=== PATIENT | female | born 1940 | race Caucasian/White ===

== ENCOUNTER 2023-09-24 13:02 | Emergency (ER) | payer MEDICARE, OTHER, SELFPAY ==
[2023-09-24] VITALS (12 sets, daily range): BP systolic 121–158; BP diastolic 49–92; PULSE 78–95; BMI 40.4
--- NOTE | 2023-09-24 16:00 | ED.GENMED ---
History of Present Illness
<Haley Drew MD, Resident - Last Filed: 09/24/23 21:10>
General
Chief Complaint: Dizziness
Time Seen by Provider: 09/24/23 15:06
History of Present Illness
History of Present Illness:
83 yo female who presented to ER today with worsened dizziness since the last week. She started to have a couple times of dizziness last week and they longed for one hour, But this morning she started to feel more dizzy in the morning around 7.30 am
and it went away one hour later and following she started to feel dizzy again. The patient reports she did not want to move and called her friend and ambulance. Ambulance crew told the patient that her blood pressure was found normal and her ECG
showed some abnormalities and she was brought to ER. The patient reports her dizziness is related with her head/neck movements. She denies chest pain, weakness, SOB, similar symptoms in the past.
If applicable-neuro sx onset
Date of onset of symptoms: 09/24/23
Past History
<Haley Drew MD, Resident - Last Filed: 09/24/23 21:10>
Past History
ED Past Medical History: Asthma, HTN, Other (Ovarian CA) and Other (lymphedema )
ED Past Surgical History: Gynecological and Orthopedic (bilateral knee replacement and right hip replacement )
Social History
Tobacco: Non-smoker
Alcohol: None
Drug: None
Personal: Single
Living: alone
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
Family History
Family History: Other (Noncontributory)
Phy Exam
<Haley Drew MD, Resident - Last Filed: 09/24/23 21:10>
General Physical Exam
General Presentation: moderate distress
General Skin: dry
General Mental: alert
ENT Exam
ENT Exam: EOMI
Eye Exam
Eye Exam: EOMI, conjunctiva normal and other (Left sided rapid eye movements )
Cardiovascular Exam
Cardiovascular Exam: regular rate/rhythm and other (bilateral lower extremity lymphedema )
Pulmonary Exam
Pulmonary Exam: lungs clear, no respiratory distress, chest non tender, no crackles, no stridor, no wheezing and no cough
Neurological Exam
Neurological Exam: alert, oriented x3, CN II-XII intact, no motor deficits, normal reflexs, no sensory deficits and speech normal
Course
<Haley Drew MD, Resident - Last Filed: 09/24/23 21:10>
Orders/Labs/Results
Orders:
Orders
09/24/23 13:05
Electrocardiogram (*1) Urgent
Reason for Study: Vertigo / Dizzy
EKG- Treatment ONCE
09/24/23 15:37
0.9% Sodium Chloride 500 ml [Nss] 500 ml IV BOLUS
09/24/23 15:55
CT Head W/o Iv Contrast Urgent
Comment:
Reason For Exam: dizzines
09/24/23 15:56
Orthostatic VS- Treatment ONCE
09/24/23 16:03
Complete Blood Count/With Diff Urgent
Comprehensive Metabolic Panel Urgent
Manual Differential Urgent
Troponin I Urgent
09/24/23 17:35
Meclizine [Antivert] 25 mg PO NOW STA
Abnormal Lab Results
09/24/23
16:03
WBC 3.3 L 10^3/uL
(4.8-10.8)
RBC 3.15 L 10^6/uL
(4.20-5.40)
Hgb 9.5 L g/dL
(12.0-16.0)
Hct 28.7 L %
(37.0-47.0)
RDW 16.4 H %
(11.5-14.5)
Lymphocytes (Manual) 12 L %
(20-51)
Monocytes (Manual) 18 H %
(2-9)
BUN 20 H mg/dl
(7-17)
Glucose 111 H mg/dl
(70-99)
Total Bilirubin 3.1 H mg/dl
(0.2-1.3)
09/24/23 16:03
09/24/23 16:03
Vital Signs
Initial and Last Documented VS:
Initial Vital Signs
Temp Pulse Resp BP Pulse Ox
97.7 F 79 16 140/71 97
09/24/23 13:03 09/24/23 13:03 09/24/23 13:03 09/24/23 13:03 09/24/23 13:03
Last Documented Vital Signs
Temp Pulse Resp BP Pulse Ox
98.1 F 84 17 122/61 98
09/24/23 19:50 09/24/23 19:50 09/24/23 19:50 09/24/23 19:50 09/24/23 19:50
<Chon Juarez MD - Last Filed: 09/24/23 18:53>
Orders/Labs/Results
Orders:
Orders
09/24/23 13:05
Electrocardiogram (*1) Urgent
Reason for Study: Vertigo / Dizzy
EKG- Treatment ONCE
09/24/23 15:37
0.9% Sodium Chloride 500 ml [Nss] 500 ml IV BOLUS
09/24/23 15:55
CT Head W/o Iv Contrast Urgent
Comment:
Reason For Exam: dizzines
09/24/23 15:56
Orthostatic VS- Treatment ONCE
09/24/23 16:03
Complete Blood Count/With Diff Urgent
Comprehensive Metabolic Panel Urgent
Manual Differential Urgent
Troponin I Urgent
09/24/23 17:35
Meclizine [Antivert] 25 mg PO NOW STA
Abnormal Lab Results
09/24/23
16:03
WBC 3.3 L 10^3/uL
(4.8-10.8)
RBC 3.15 L 10^6/uL
(4.20-5.40)
Hgb 9.5 L g/dL
(12.0-16.0)
Hct 28.7 L %
(37.0-47.0)
RDW 16.4 H %
(11.5-14.5)
Lymphocytes (Manual) 12 L %
(20-51)
Monocytes (Manual) 18 H %
(2-9)
BUN 20 H mg/dl
(7-17)
Glucose 111 H mg/dl
(70-99)
Total Bilirubin 3.1 H mg/dl
(0.2-1.3)
09/24/23 16:03
09/24/23 16:03
Vital Signs
Initial and Last Documented VS:
Initial Vital Signs
Temp Pulse Resp BP Pulse Ox
97.7 F 79 16 140/71 97
09/24/23 13:03 09/24/23 13:03 09/24/23 13:03 09/24/23 13:03 09/24/23 13:03
Last Documented Vital Signs
Temp Pulse Resp BP Pulse Ox
98.1 F 84 17 122/61 98
09/24/23 19:50 09/24/23 19:50 09/24/23 19:50 09/24/23 19:50 09/24/23 19:50
<Haley Drew MD, Resident - Last Filed: 09/24/23 21:10>
MDM/Problems Addressed
Differential Diagnosis Includes:
Anemia, electrolyte imbalance, Dehydration, BPV?
<Haley Drew MD, Resident - Last Filed: 09/24/23 21:10>
*Critical Care Note
Total Time (30-74mins, 75-104mins- exclusive of procedures): Not Applicable
<Haley Drew MD, Resident - Last Filed: 09/24/23 21:10>
Comment
Comment:
Posterior [place], anemia, electrolyte imbalance, CVA, BPV?
ED Attending Note
<Haley Drew MD, Resident - Last Filed: 09/24/23 21:10>
-
Portions of this chart may have been created with voice recognition software.� Occasional wrong word or��sound alike� substitutions may have occurred due to the inherent limitations of voice recognition software.
<Chon Juarez MD - Last Filed: 09/24/23 18:53>
ED Attending Note
Patient seen and examined by attending physician: Yes
ED Attending Note:
Patient presents to ED secondary to intermittent lightheaded sensation over the past 1 week, worse today. Patient has had intermittent nausea sensation without vomiting. Denies fever or chills. Denies headache. Denies blurred vision. Denies
loss of sensation or weakness. Denies falling down from dizziness. However, patient states that she feels unsteady when she is walking. Denies recent illness. Denies recent change in medications or diet. Of note, patient states that she has been
seeing chiropractor for the past 2 weeks, secondary to neck pain. However, patient denies any manipulation of her neck.
Physical Exam
General: no apparent distress, not acutely ill. afebrile
Head: nc/at. eomi
Neck: supple. no meningeal signs.
Heart: s1/s2 regular rate and rhythm, no murmur. equal radial pulses.
Lungs: no acute respiratory distress. clear bilaterally
Abdomen: normal bowel sounds. not tender. rectal exam (GODWIN Jackson, at bedside): brown stool, heme negative
Neuro: alert and oriented. no focal neurological deficits. normal speech.
Skin: no rash
Psychiatric: well kept. interactive and cooperative
Extremities: no edema. no calf tenderness.
CT head: NAD.
Pt reports improvement after IVF administration and remains neurologically intact.
History and exam consistent with dizziness, likely multifactorial, including dizziness/decreased oral intake vs vertigo. Pt feels comfortable going home at this time. As such, she will be discharged home with recommendation for PCP f/u, including
repeat H/H as well as potential MRI brain, if symptoms persist.
Discharge Plan
Departure
Patient Disposition: Home (Routine Discharge)
Date of Disposition: 09/24/23
Time of Disposition: 18:37
Patient with high blood pressure during this ER visit?: No
Discharge Problem:
Dizziness, Anemia
Instructions: Normocytic Normochromic Anemia (DC), Dizziness
Prescriptions:
New
meclizine 25 mg tablet
25 mg PO TID MDD 75 mg Qty: 30 0RF
No Action
fluticasone propionate 1 SPRAY spray,suspension
2 spray intranasal DAILY
fluticasone propion-salmeterol 1 DISK blister with device
1 puff inhalation BID
clindamycin HCl 150 MG capsule
600 mg PO PRN PRN (Reason: dental work)
chlorhexidine gluconate (bulk) 450 ML solution
1 ml MC BID
fluticasone propion-salmeterol 1 DISK blister with device
1 puff PO DAILY
mupirocin 1 APPLIC ointment
1 applic topical BID Qty: 1 0RF
Patient Comments:
last dose, 09/12/20
sennosides [senna] 1 TABLET tablet
2 tab PO BID 0RF
lidocaine [Aspercreme (lidocaine)] 1 PATCH adhesive patch,medicated
3 patch topical DAILY PRN (Reason: R knee pain) Qty: 21 0RF
Rx Instructions:
Over the counter. Remove nightly.
Apply to sides of R knee. Do not place over incision.
aspirin 325 MG tablet
325 mg PO DAILY Qty: 28 0RF
Rx Instructions:
Take daily x4 weeks for blood clot prevention.
acetaminophen [Tylenol Extra Strength] 500 MG tablet
1,000 mg PO Q6H Qty: 60 0RF
Rx Instructions:
Do not exceed >4000 mg daily.
magnesium hydroxide 30 ML suspension
30 ml PO DAILYPRN PRN (Reason: constipation) 0RF
pantoprazole 40 MG tablet,delayed release (DR/EC)
40 mg PO HS Qty: 30 0RF
Rx Instructions:
Take nightly while on Ibuprofen.
docusate sodium 100 MG capsule
100 mg PO BID 0RF
diazepam 5 MG tablet
5 mg PO BIDPRN PRN (Reason: muscle spasms/anxiety) Qty: 12 0RF
Rx Instructions:
Caution while on Dilaudid - can cause drowsiness.
hydromorphone 2 MG tablet
2 mg PO Q4HPRN PRN (Reason: moderate-severe pain) Qty: 30 0RF
Rx Instructions:
1 tab moderate pain or 2 if pain severe
dx total joint
ongoing therapy
bumetanide 2 MG tablet
2 mg PO DAILY Qty: 0 0RF
Rx Instructions:
Hold if systolic blood pressure <130 while on Dilaudid.
amlodipine 2.5 MG tablet
2.5 mg PO DAILY Qty: 30 0RF
Rx Instructions:
Hold if systolic blood pressure <130 while on Dilaudid
ibuprofen 400 MG tablet
400 mg PO BID Qty: 0 0RF
Rx Instructions:
Take with food.
Do not take within 2 hours of aspirin.
potassium chloride 10 MEQ tablet extended release
10 meq PO DAILY Qty: 0 0RF
Rx Instructions:
Resume only when taking Bumex unless otherwise advised by .
Referrals:
Del Cid,Foster Sj, MD [Family Provider] -
Activity Restrictions/Additional Instructions:
As discussed, please follow up with your primary care physician for re-evaluation, including repeat blood work in 1-2 weeks, along with potential MRI brain as outpatient, if your dizziness persists. Your prescription has been sent electronically to
[facility] in [place].
Interventions
Interventions:
*Risk Screen - Suicide Last Done: 09/24/23 13:03
*General Assessment Last Done: 09/24/23 13:03
*Neglect/Abuse Screening Last Done: 09/24/23 13:03
ED- Fall Risk Assessment Last Done: 09/24/23 15:50
*ED COVID-19 Vaccine History Last Done: 09/24/23 15:50
*Nursing Disposition Last Done: 09/24/23 19:50
ED- Neurological Assessment Last Done: 09/24/23 15:50
ED- Cardiac Assessment Last Done: 09/24/23 19:51
ED Swallowing Screen Last Done: 09/24/23 17:48
Discharge Date and Time
Discharge Date/Time: 09/24/23 19:53
Print Language: ITALIAN
[2023-09-24] MEDS: NSS 500 IV (16:22)
[2023-09-24 16:28] LABS: Hematocrit 28.7 % (37.0-47.0); Hemoglobin 9.5 g/dL (12.0-16.0); Mean Corp Hgb Conc. 33.1 g/dL (33.0-37.0); Mean Corpuscular Hgb 30.2 pg (27.0-31.0); Mean Corpuscular Volume 91.1 fL (81.0-99.0); Mean Platelet Volume 9.9 fL (7.4-10.4); Platelet Count 139 10^3/uL (130-400); Red Blood Cell Count 3.15 10^6/uL (4.20-5.40); Red Cell Dist. Width 16.4 % (11.5-14.5); White Blood Cell Count 3.3 10^3/uL (4.8-10.8)
[2023-09-24 16:31] LABS: ALT (SGPT) 15 U/L (0-35); AST (SGOT) 32 U/L (14-36); Albumin 3.7 g/dl (3.5-5.0); Alkaline Phosphatase 114 U/L (38-126); Blood Urea Nitrogen 20 mg/dl (7-17); Calcium 9.2 mg/dl (8.4-10.2); Carbon Dioxide 30 mmol/L (22-30); Chloride 98 mmol/L (98-107); Estimated Creatinine Clearance 56 ml/min; Glucose 111 mg/dl (70-99); Potassium 3.5 mmol/L (3.5-5.1); Sodium 135 mmol/L (135-145); Total Bilirubin 3.1 mg/dl (0.2-1.3); Total Protein 6.6 g/dl (6.3-8.2); eGFR > 60.00
[2023-09-24 16:41] LABS: Troponin I < 0.012 ng/ml
[2023-09-24 17:13] LABS: Absolute Neutrophils -Man Diff 2.3 10^3/uL (1.4-6.5); Band Neutrophils 0 % (0-3); Lymphocytes 12 % (20-51); Monocytes 18 % (2-9); Pathologist Reviewed No; Platelets Checked Yes; Segmented Neutrophils 70 % (42-75)
[2023-09-24 17:14] LABS: Normal RBC Morphology Yes
[2023-09-24 17:15] LABS: Total Cells Counted 100
[2023-09-24] MEDS: ANTIVERT 25 MG PO (17:54)
== END 2023-09-24 19:53 | disposition home or self-care (01) ==
LOC: EMR 13:02
PROVIDERS: Student in an Organized Health Care Education/Training Program; EMERGENCY PHYSICIAN Emergency Medicine; FAMILY PHYSICIAN Internal Medicine
DX: R42 Dizziness and giddiness (principal); D64.9 Anemia, unspecified; I10 Essential (primary) hypertension; J45.909 Unspecified asthma, uncomplicated; Z85.43 Personal history of malignant neoplasm of ovary; Z96.653 Presence of artificial knee joint, bilateral; Z96.641 Presence of right artificial hip joint; Z79.82 Long term (current) use of aspirin; Z88.8 Allergy status to other drugs, medicaments and biological substances; Z91.048 Other nonmedicinal substance allergy status
CPT/HCPCS: 99285; 96360; 70450; 80053; 84484; 85025; 93005

== ENCOUNTER 2023-11-06 12:39 | Inpatient (IN) | payer MEDICARE, OTHER, SELFPAY ==
[2023-11-06] VITALS (11 sets, daily range): BP systolic 74–139; BP diastolic 45–70
--- NOTE | 2023-11-06 08:47 | ED.GENMED ---
History of Present Illness
General
Chief Complaint: CVA/TIA Symptoms
Source: patient and ambulance crew
Exam Limitations: none
Time Seen by Provider: 11/06/23 08:46
History of Present Illness
History of Present Illness:
See MDM
If applicable-neuro sx onset
Onset of symptoms known: No
Time pt last seen normal is known: Yes
Date last time pt seen normal: 11/05/23
Past History
Past History
ED Past Medical History: Asthma, HTN, Other (Ovarian CA) and Other (lymphedema )
ED Past Surgical History: Gynecological and Orthopedic (bilateral knee replacement and right hip replacement )
Social History
Tobacco: Non-smoker
Alcohol: None
Drug: None
Personal: Single
Living: alone
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
Family History
Family History: Other (Noncontributory)
Phy Exam
Physical Exam
Physical Exam:
See MDM
Scores
NIH Stroke Score
Level of Consciousness: 0 - Alert
LOC Questions: 0-Answers both correctly
LOC Commands: 0-Performs both correctly
Best Horizontal Gaze: 0-Normal
Visual [place]: 0=Normal, no visual loss
Facial Palsy: 3=Complete paralysis
Motor - Right Arm: 1=Drift < 10 seconds
Motor - Left Arm: 0=No drift 10 seconds
Motor - Right Le-Drift < 5 seconds
Motor - Left Le-No drift 5 seconds
Limb Ataxia: 0-Absent
Sensation: 0-Normal
Best Language: 0-No aphasia
Dysarthria: 1-Mild slurring
Extinction and Inattention: 0-No abnormality
Total Score:: 6
Course
Orders/Labs/Results
Orders:
Orders
11/06/23 08:46
Electrocardiogram (*1) Stat
Reason for Study: Other
Other Reason for Exam: neuro symptoms
CT Head W/o Cont STROKE ALERT Urgent
Comment:
Reason For Exam: left facial droop and R side weakness
CT Head/Neck Ang STROKE ALERT Urgent
Comment:
Reason For Exam: left facial droop and R side weakness
EKG- Treatment ONCE
11/06/23 09:23
Consult Neurology [NEUROLOGY CONSULT] Urgent
Consulting Provider: Aquilino Patel
Was physician already notified: Yes
Comprehensive Metabolic Panel Urgent
PTT Urgent
Prothrombin Time Urgent
Aspirin 300 mg RECTAL NOW STA
Clopidogrel Bisulfate [Plavix] 300 mg PO NOW STA
11/06/23 09:24
Complete Blood Count/With Diff Urgent
Troponin I Urgent
11/06/23 09:31
Speech Screening from Declan Routine
11/06/23 09:33
Famotidine [Pepcid] 20 mg IV NOW STA
Abnormal Lab Results
11/06/23 11/06/23
09:23 09:24
WBC 3.0 L 10^3/uL
(4.8-10.8)
RBC 3.56 L 10^6/uL
(4.20-5.40)
Hgb 10.6 L g/dL
(12.0-16.0)
Hct 32.4 L %
(37.0-47.0)
MCHC 32.7 L g/dL
(33.0-37.0)
RDW 15.9 H %
(11.5-14.5)
Absolute Lymphs (auto) 0.3 L 10^3/uL
(1.2-3.4)
Lymphocytes % 11.3 L %
(20.5-51.1)
Monocytes % 20.0 H %
(1.7-9.3)
PT 15.6 H Sec
(11.4-14.6)
Chloride 96 L mmol/L
(98-107)
Glucose 124 H mg/dl
(70-99)
Total Bilirubin 2.6 H mg/dl
(0.2-1.3)
11/06/23 09:24
11/06/23 09:23
Vital Signs
Initial and Last Documented VS:
Initial Vital Signs
Temp Pulse Resp BP Pulse Ox
97.7 F 96 18 139/59 97
11/06/23 09:10 11/06/23 09:10 11/06/23 09:10 11/06/23 09:10 11/06/23 09:10
Last Documented Vital Signs
Temp Pulse Resp BP Pulse Ox
97.7 F 96 18 139/59 97
11/06/23 09:10 11/06/23 09:10 11/06/23 09:10 11/06/23 09:10 11/06/23 09:10
MDM/Problems Addressed
Differential Diagnosis Includes:
HPI and MDM Narrative:
83-year-old female presenting as a prearrival stroke alert. She noted vertigo symptoms 9 PM last night. She thinks 6 AM started with facial droop and weakness. Patient confused and also thinks it could have been 5:30 AM. Patient was seen
immediately on arrival and sent right to CT scanner
Physical exam
General: Left facial droop, slurred speech
HEENT: protecting airway
Neck: appears supple
CV: No evidence of cyanosis. Regular rate and rhythm
Resp: No accessory muscle use
Abd: Non-distended
Extremities: No deformities
Neuro: alert. Mild dysarthria, right facial droop, right-sided weakness
Psych: Normal affect
Skin: Intact
Problems Addressed including Acute and Chronic Conditions affecting care:
1. Strokelike symptoms
Acuity: acute
Prognosis: unstable
Details: Stroke alert called immediately on arrival
Updates
9:[address] head negative. At this time, neurology at bedside. At this point, the right-sided arm weakness is improving
9:20 AM given the uncertainty of the starting time, neurology indicated avoidance of TNK. Will give aspirin and Plavix
Differential Diagnosis (but not limited to): Intracranial hemorrhage, ischemic stroke
Testing considered: CT perfusion
Drug therapy (if applicable): OTC meds, please see d/c instruction regarding Rx drugs
Amount and/or Complexity of Data Reviewed
Clinical info obtained from: Patient
External data reviewed: N/A
Labs I independently reviewed (but not limited to): Mildly low white blood cell count
Radiology: The CT scan was personally and independently reviewed. In addition, official CT report reviewed.
Pulse Ox: not hypoxic
EKG independently reviewed: Sinus rhythm, right bundle branch block, no STEMI
Stringed Instrument Tuner: Sinus rhythm
Critical Care: N/A
Risk of Complication:
Social Determinants of health: Good social support
Discussed with other providers: Neurology, radiologist
Escalation of Care includes Admit/Obs: Given the concern for stroke, will admit for further workup
Occasional wrong word or 'sound a like' substitutions may have occurred due to the inherent limitations of voice recognition software. Read the chart carefully and recognize, using context, where substitutions have occurred.
*Critical Care Note
Total Time (30-74mins, 75-104mins- exclusive of procedures): Not Applicable
ED Attending Note
-
Portions of this chart may have been created with voice recognition software.� Occasional wrong word or��sound alike� substitutions may have occurred due to the inherent limitations of voice recognition software.
Discharge Plan
Departure
Patient Disposition: Admit
Date of Disposition: 11/06/23
Time of Disposition: 10:06
Admit to: Telemetry
Presentation/result/management discussed w/ accepting MD/DO: Hospitalist
Discharge Problem:
Acute CVA (cerebrovascular accident)
Prescriptions:
No Action
fluticasone propionate 1 SPRAY spray,suspension
2 spray intranasal DAILY
fluticasone propion-salmeterol 1 DISK blister with device
1 puff inhalation BID
mupirocin 1 APPLIC ointment
1 applic topical BID Qty: 1 0RF
Patient Comments:
last dose, 09/12/20
Rx Instructions:
bilateral lower legs.
bumetanide 2 MG tablet
2 mg PO DAILY Qty: 0 0RF
Rx Instructions:
Hold if systolic blood pressure <130 while on Dilaudid.
amlodipine 2.5 MG tablet
2.5 mg PO DAILY Qty: 30 0RF
Rx Instructions:
Hold if systolic blood pressure <130 while on Dilaudid
potassium chloride 10 MEQ tablet extended release
10 meq PO DAILY Qty: 0 0RF
Rx Instructions:
Resume only when taking Bumex unless otherwise advised by DrWilbert
acetaminophen [Tylenol Extra Strength] 500 MG tablet
1,000 mg PO Q6H PRN (Reason: pain/fever)
Rx Instructions:
Do not exceed >4000 mg daily.
Referrals:
UNKNOWN - PT DOES,NOT KNOW [Unknown Provider] -
Interventions
Interventions:
*Risk Screen - Suicide Last Done: 11/06/23 08:55
*General Assessment Last Done: 11/06/23 08:55
*Neglect/Abuse Screening Last Done: 11/06/23 08:55
ED Swallowing Screen Last Done: 11/06/23 09:30
Discharge Date and Time
Print Language: BENINESE
[2023-11-06 09:34] LABS: % Basophils 1.7 % (0-2); % Eosinophils 0.7 % (0-6); % Immature Granulocytes 0.3 % (0-0.5); % Lymphocytes 11.3 % (20.5-51.1); Absolute Basophils 0.1 10^3/uL (0-0.2); Absolute Lymphocytes 0.3 10^3/uL (1.2-3.4); Absolute Monocytes 0.6 10^3/uL (0.1-0.6); Hematocrit 32.4 % (37.0-47.0); Hemoglobin 10.6 g/dL (12.0-16.0); Mean Corp Hgb Conc. 32.7 g/dL (33.0-37.0); Mean Corpuscular Hgb 29.8 pg (27.0-31.0); Mean Platelet Volume 9.9 fL (7.4-10.4); Nucleated Red Blood Cells % 0 %; Platelet Count 149 10^3/uL (130-400); Red Blood Cell Count 3.56 10^6/uL (4.20-5.40); Red Cell Dist. Width 15.9 % (11.5-14.5)
[2023-11-06] MEDS: ASPIRIN 300 MG RECTAL (09:35)
[2023-11-06] MEDS: PLAVIX 300 MG PO (09:35)
[2023-11-06] MEDS: PEPCID 20 MG IV (09:41)
[2023-11-06 09:43] LABS: INR 1.26; PT 15.6 Sec (11.4-14.6)
[2023-11-06 09:44] LABS: APTT 31.9 Sec (23.4-35.0)
[2023-11-06 09:46] LABS: ALT (SGPT) 15 U/L (0-35); AST (SGOT) 31 U/L (14-36); Albumin 3.8 g/dl (3.5-5.0); Alkaline Phosphatase 103 U/L (38-126); Blood Urea Nitrogen 17 mg/dl (7-17); Calcium 9.3 mg/dl (8.4-10.2); Carbon Dioxide 30 mmol/L (22-30); Chloride 96 mmol/L (98-107); Glucose 124 mg/dl (70-99); Sodium 136 mmol/L (135-145); Total Bilirubin 2.6 mg/dl (0.2-1.3); Total Protein 6.7 g/dl (6.3-8.2); eGFR > 60.00
[2023-11-06 09:57] LABS: Troponin I < 0.012 ng/ml
--- NOTE | 2023-11-06 10:18 | CON.NEURO4 ---
Addendum entered and electronically signed by Aquilino Patel MD 11/07/23 14:05:
CC: Right sided weakness
Allergies: Lisinopril, Adhesive
Medications: Norvasc 2.5mg, Bumex 2mg, Flonase
VS:
Temp Pulse Resp BP Pulse Ox
97.7 F 96 18 139/59 97
Original Note:
Consultation - Neurology 4
-
CONSULTING PHYSICIAN: Aquilino Patel MD
REFERRING PHYSICIAN: Hospitalist
DICTATED BY: Aquilino Patel MD
DATE/TIME OF REQUEST: October
DATE/TIME OF CONSULTATION: November 06, 2023
Reason for Consultation:
History of Present Illness:
This is a 83 year old right) handed female) who has presented to the hospital with (chief complaint) of right sided weakness. She gives a h/o HTN who had been in her USOH till last night. Around 9p she felt lightheaded and dizzy, she had difficulty
standing. She laid down and didnt call for help. This morning her neighbor checked in on her and found her to have right sided weakness of face and difficulty with her right arm and unable to sit or stand. She denied headaches nausea or numbness. No
LOC or seizures. She had Slurred speech double vision with incoordination
She was brought into ER and her symptoms persisted
Following admission facial weakness became more pronounced with return of limb function.
Past Medical History: HTN
Surgical History: Knee repair
Family History: [place]
Social History: Lives alone. Does not smoke or use alcohol
Allergies:
Home Medications:
Review of Symptoms:
Patient denies any fever, headache, chest pain, shortness of breath, GI or symptoms.
�Per the HPI.�All systems are reviewed negative except above.
�-
Vital Signs:
The patient has a
Physical Exam:
The patient is afebrile, heart sounds S1 and S2 are regular , and chest is clear to auscultation bilaterally.
- If not clear, describe.
NIH Stroke Scale (if applicable):
I performed the NIH stroke scale on the patient. The patient scored 6 points on the NIHSS:
Neurologic Examination:
The patient is awake, alert and oriented x 3. (He/She) is able to follow commands and answer questions appropriately. Speech is fluent with dysarthria.
On cranial nerve assessment, pupils are 3 mm bilateral, round and reactive to light and accommodation. Visual andrea are full. Extraocular movements are intact. Facial sensations are intact and bilaterally symmetrical. There is RIGHT facial
asymmetry . Hearing is impaired bilaterally. Tongue palate and uvula are midline. Sternocleidomastoid strengths are full bilaterally. Motor strengths are 3/5 RIGHT upper and lower extremities on medical research [place] scale. There is no drift or
involuntary movement noted. Deep tendon reflexes are 2+ bilateral upper and lower extremities with RIGHT Babinski.
Sensations of pain, touch, temperature and vibration are impaired and asymmetrical.. Coordination is impaired by finger to nose RIGHT
Rombergs and Gait was NT as pat is bedbound.
Lab Results: Addendum
Neuro Imaging: CT Head: Atrophy. Small vessel disease. Normal ventricles
Impression:
(Mr. / Ms.) RONALD LUQUE is a 83 year old F who has presented to the hospital with (symptoms/chief complaint) right-sided weakness associated with vertigo and slurred speech
Differentials for the patient's presentation include:
1. Vertebrobasilar insufficiency with lacunar stroke
Patient has the following risk factors for their symptoms:
IV Tenecteplase/IAT candidacy: Not a candidate for intra venous thrombolysis due to onset of symptoms on November 05, 2023
Recommendations:
1. Aspirin 300 mg
2. Plavix 75 mg
3. Pepcid
4. PT/OT
5. MRI of head
6. B12
7. Eyepatch
8. Statin
Discussed patient care with: ER attending
Allergies
-
Allergies
Allergy/AdvReac Type Severity Reaction Status Date / Time
adhesive Allergy Plastic Verified 09/12/20 05:57
bandaids
cause
itching
lisinopril Allergy angioedema Verified 09/12/20 05:57
cats,dogs,perfumes,candles,grass Allergy chest Uncoded 09/12/20 05:57
tightness,asthma
shrubs,trees, Allergy chest Uncoded 09/12/20 05:57
tightness,asthma
Vital Signs and Labs
-
Vital Signs and Labs:
Vital Signs
Temp Pulse Resp BP Pulse Ox
36.5 C 96 18 139/59 97
11/06/23 09:10 11/06/23 09:10 11/06/23 09:10 11/06/23 09:10 11/06/23 09:10
Lab Results
11/06/23 09:24
11/06/23 09:23
PT 15.6 Sec (11.4-14.6) H 11/06/23 09:23
INR 1.26 11/06/23 09:23
APTT 31.9 Sec (23.4-35.0) 11/06/23 09:23
Sodium 136 mmol/L (135-145) 11/06/23 09:23
Potassium 4.0 mmol/L (3.5-5.1) 11/06/23 09:23
BUN 17 mg/dl (7-17) 11/06/23 09:23
Glucose 124 mg/dl (70-99) H 11/06/23 09:23
Calcium 9.3 mg/dl (8.4-10.2) 11/06/23 09:23
Medications
-
Home Medications
�Medication �Instructions �Recorded
fluticasone propionate 50 2 spray intranasal DAILY 03/06/17
mcg/actuation nasal Lung/breathing issues
spray,suspension
fluticasone 100 mcg-salmeterol 50 1 puff inhalation BID 07/07/18
mcg/dose blistr powdr for Lung/breathing issues
inhalation
mupirocin 2 % topical ointment 1 applic topical BID #1 tube 08/16/20
amlodipine 2.5 mg tablet 2.5 mg PO DAILY ##30 09/13/20
bumetanide 2 mg tablet 2 mg PO DAILY Fluid 09/13/20
retention/Swelling ##0
potassium chloride 10 mEq 10 meq PO DAILY Electrolyte 09/13/20
tablet,extended release Repletion ##0
acetaminophen 500 mg tablet 1,000 mg PO Q6H PRN pain/fever 11/06/23
(Tylenol Extra Strength)
--- NOTE | 2023-11-06 12:14 | W.PN.HOSP.TC ---
Today's Communication/Plan
-
Neuro consult appreciated
admit tele
Assessment / Plan
Assessment / Plan
Acute CVA with rt sided weakness
neuro felt that symptoms started on 11/04 and thus not a candidate for thrombolysis
Anemia
as per POA in process of being worked up. She has been scheduled to have an abd US and has been referred to Dr. Sutton
s/p bilateral TKR, Rt hip replacement
Hx of ovarian cancer
Hx of asthma
P:admit to tele
Plavix/ASA
Full Code
Anticipated Discharge: > 48 hours
Subjective/Interval History
-
Date of Service: November 06, 2023
Acute Rt sided weakness
Objective Data
-
Labs:
Laboratory Results
11/06/23 11/06/23
09:23 09:24
WBC 3.0 L
Hgb 10.6 L
Hct 32.4 L
Plt Count 149
PT 15.6 H
INR 1.26
APTT 31.9
Sodium 136
Potassium 4.0
Chloride 96 L
Carbon Dioxide 30
BUN 17
Creatinine 0.7
Glucose 124 H
Calcium 9.3
Total Bilirubin 2.6 H
AST 31
ALT 15
Alkaline Phosphatase 103
Vital Signs:
Vital Signs
Temp Pulse Resp BP Pulse Ox
97.7 F 84 17 123/62 97
11/06/23 09:10 11/06/23 11:15 11/06/23 11:00 11/06/23 11:00 11/06/23 11:15
Review of Systems
-
History Source: Patient, Family (brother and POA in room) and Coordinated Provider
Constitutional: Denies Fever
EENT: Reports Hearing Loss (chronic [place]) and Other (rt sided facial droop)
Respiratory: Reports No Symptoms
Cardiac: Reports No Symptoms
Abdomen/GI: Reports No Symptoms
Genitourinary: Reports No Symptoms
Musculoskeletal: Reports Muscle Weakness (chronic rt leg weakness)
Neuro: Reports Weakness
Physical Exam
-
General: Well Developed, Well Nourished and No Apparent Distress
HEENT: Normocephalic, Atraumatic and Moist Mucous Membranes
Respiratory: Clear to Auscultation; Negative Wheezes, Rales or Rhonchi
Cardiac: Regular Rhythm and S1/S2
GI: Soft, Nontender and Nondistended
Musculoskeletal: No Clubbing, No Cyanosis and No Edema
Neuro: Awake, Alert, Oriented and Other (rt sided facial droop, rt sided weakness)
--- NOTE | 2023-11-06 16:25 | PTOTSP ---
SPEECH THERAPY SWALLOW EVALUATION:
Patient exhibits clinical signs of oropharyngeal dysphagia, likely acute related to acute CVA. Patient remains at risk for aspiration and related complications due to acute CVA and Right sided weakness. No signs of aspiration observed at this time.
No CXR available. WBC low. Patient with stable respiratory status at this time. Recommend IDDSI Level 6 Soft and Bite Size diet, thin liquids. Medications whole in applesauce. Aspiration precautions including: Upright positioning; 100%
supervision/assistance with meals; Monitoring for signs of aspiration; Checking for pocketing on Right using finger/lingual sweep; Place bolus and chew on Left; Eat only when awake/alert; Alternate textures; Small sips/bites; Slow rate; Monitor CXR
and labs; D/c oral diet if any decline in mental or respiratory status. Education provided to patient/family regarding aspiration risks/precautions and safe swallow strategies including placing bolus on Left, overchewing solids, checking for
pocketing on Right using finger/lingual sweep. Patient verbally reported she understood all recommendations. Signage with recommendations posted in patient room. Discussed recommendations with RN and Dr. Rosenthal. Speech therapy to follow, assess diet
tolerance and modify as appropriate, provide continued education regarding aspiration risks/precautions, determine indication for instrumental assessment of swallowing as appropriate, and complete full speech/language/cognitive communication
evaluation.
RECOMMEND:
1) IDDSI Level 6 Soft and Bite Size diet, thin liquids
2) Medications whole in applesauce
3) Aspiration precautions including: Upright positioning; 100% supervision/assistance with meals; Monitoring for signs of aspiration; Checking for pocketing on Right using finger/lingual sweep; Place bolus and chew on Left; Eat only when
awake/alert; Alternate textures; Small sips/bites; Slow rate; Monitor CXR and labs; D/c oral diet if any decline in mental or respiratory status
4) Speech therapy to follow
[2023-11-06] MEDS: LIPITOR 20 MG PO (16:52)
[2023-11-06 20:25] LABS: Glucose - Point of Care 114 mg/dl (70-99)
[2023-11-06] MEDS: ADVAIR HFA 45/21 MCG INHALER INH (20:25)
--- NOTE | 2023-11-06 20:25 | PTCARENOTE ---
Addendum entered by Fior Corona 11/07/23 00:05:
2232: Urine resulted, house PRESS MAINTAINER notified order for IV rocephin, given. Pt back to baseline. NIH completed- scored 7.
Original Note:
2022: When attempting to do NIH pt very drowsy- awoke pt for about 15 minutes, pt very disoriented unable to state name, , month or place. Stating 'I am 19 years old, and her name is Nevaeh'. Pt with slurred speech, aphasia-Rapid Response and
stroke alert called. NIH completed increased from 7 to 14. BP 74/54 HR 80s NSR on telemetry. Blood sugar 114. BP rechecked 139/61. Orders for IVF NSS 100/hr- hung. Pt straight cathed per order for 300 cc foul smelling urine- sent for urinalysis.
--- NOTE | 2023-11-06 20:37 | W.PN.UPDATE ---
Update Note
Progress Note Update
[employer] HAZMAT DRIVER /Stroke alert
Per nursing staff, there is a change in mental status and patient is not following direction.
Patient is hypotensive with BP 74/54, hr 80, RR 18, temp 97.5, SPO2 97.
-Discussed with neurologist operations program manager, new recommendations received to start NSS 100cc/hr and hold bp meds.
-Abnormal UA result received and will start IV Ceftriaxone.
[2023-11-06 20:56] LABS: Hematocrit 30.3 % (37.0-47.0); Hemoglobin 10.3 g/dL (12.0-16.0); Mean Corpuscular Hgb 30.5 pg (27.0-31.0); Mean Corpuscular Volume 89.6 fL (81.0-99.0); Mean Platelet Volume 9.5 fL (7.4-10.4); Platelet Count 137 10^3/uL (130-400); Red Blood Cell Count 3.38 10^6/uL (4.20-5.40); White Blood Cell Count 3.3 10^3/uL (4.8-10.8)
[2023-11-06] MEDS: NSS 1000 IV (21:01)
[2023-11-06 21:02] LABS: Blood Urea Nitrogen 13 mg/dl (7-17); Calcium 9.2 mg/dl (8.4-10.2); Carbon Dioxide 26 mmol/L (22-30); Chloride 102 mmol/L (98-107); Estimated Creatinine Clearance 68 ml/min; Glucose 114 mg/dl (70-99); Potassium 3.6 mmol/L (3.5-5.1); Sodium 137 mmol/L (135-145); eGFR > 60.00
[2023-11-06] MEDS: HEPARIN 5000 UNITS SC (21:05)
[2023-11-06 21:09] LABS: Urine Albumin Trace (Neg - Trace); Urine Bilirubin Negative (Negative); Urine Character Very Cloudy (Clear); Urine Color Yellow; Urine Glucose Negative (Negative); Urine Ketone Negative (Negative); Urine Leukocyte 2+ (Negative); Urine Nitrite Positive (Negative); Urine Occult Blood 1+ (Negative); Urine Urobilinogen 2+ (Neg - 1+)
[2023-11-06 21:19] LABS: Urine Squamous Cell 0-2 /LPF (Few)
[2023-11-06 21:21] LABS: Urine Bacteria Many (Negative); Urine Red Blood Cell 0-2 /HPF (0-2); Urine White Cell 50-60 /HPF (0-5)
[2023-11-06] MEDS: ROCEPHIN 1000 MG IV (22:33)
[2023-11-06] MEDS: STERILE WATER FOR INJECTION 10 ML IV (22:36)
[2023-11-07] VITALS (8 sets, daily range): BP systolic 112–143; BP diastolic 57–87; PULSE 100; O2SAT 97
[2023-11-07] MEDS: NSS 1000 IV ×2 (05:43→17:17)
[2023-11-07] MEDS: ADVAIR HFA 45/21 MCG INHALER 2 PUFF INH ×2 (07:42→19:41)
[2023-11-07] MEDS: BUMEX 2 MG PO (08:23)
[2023-11-07] MEDS: KCL 10 MEQ PO (08:23)
[2023-11-07] MEDS: HEPARIN 5000 UNITS SC ×2 (08:24→20:59)
[2023-11-07] MEDS: ASPIR LOW (ENTERIC COATED) 81 MG PO (08:24)
[2023-11-07] MEDS: PLAVIX 75 MG PO (08:24)
[2023-11-07] MEDS: PEPCID 20 MG PO (08:24)
[2023-11-07 08:50] LABS: Hematocrit 33.4 % (37.0-47.0); Hemoglobin 11.2 g/dL (12.0-16.0); Mean Corp Hgb Conc. 33.5 g/dL (33.0-37.0); Mean Corpuscular Hgb 31.2 pg (27.0-31.0); Mean Platelet Volume 10.1 fL (7.4-10.4); Platelet Count 156 10^3/uL (130-400); Red Blood Cell Count 3.59 10^6/uL (4.20-5.40); Red Cell Dist. Width 16.2 % (11.5-14.5); White Blood Cell Count 2.8 10^3/uL (4.8-10.8)
[2023-11-07 09:21] LABS: Blood Urea Nitrogen 11 mg/dl (7-17); Calcium 9.2 mg/dl (8.4-10.2); Carbon Dioxide 25 mmol/L (22-30); Chloride 104 mmol/L (98-107); Estimated Creatinine Clearance 79 ml/min; Glucose 104 mg/dl (70-99); HDL Cholesterol 10 mg/dl; Iron 76 ug/dl (37-170); LDL Cholesterol, Calculated 48 mg/dl; Potassium 4.5 mmol/L (3.5-5.1); Sodium 139 mmol/L (135-145); Total Cholesterol 109 mg/dl (50-199); Triglyceride 255 mg/dl (10-149); Very Low Density Lipoprotein 51 mg/dl (0-30); eGFR > 60.00
[2023-11-07 09:31] LABS: Percent Saturation 24 % (20-50); Total Iron Binding Capacity 308 ug/dl (265-497)
[2023-11-07 09:35] LABS: % Basophils 1.8 % (0-2); % Eosinophils 3.2 % (0-6); % Immature Granulocytes 0.4 % (0-0.5); % Monocytes 19.5 % (1.7-9.3); % Neutrophils 59.1 % (42.2-75.2); Absolute Basophils 0.1 10^3/uL (0-0.2); Absolute Eosinophils 0.1 10^3/uL (0-0.7); Absolute Lymphocytes 0.5 10^3/uL (1.2-3.4); Absolute Monocytes 0.6 10^3/uL (0.1-0.6); Absolute Neutrophils 1.7 10^3/uL (1.4-6.5); Nucleated Red Blood Cells % 0 %
[2023-11-07 12:59] LABS: Glycohemoglobin (HgbA1c) 3.7 % (4.0-5.6)
--- NOTE | 2023-11-07 14:06 | W.PN.NEURO.1 ---
Addendum entered and electronically signed by Aquilino Patel MD 11/07/23 21:51:
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
PLAN: Consider Holter monitor/Zio patch
Cardiology consult
Original Note:
Today's Communication / Plan
-
Continue aspirin and Plavix and Statin
No BP medications
IV fluids
Neuro Assessment/Plan
Assessment
83 yr. old lady with h/o HTN who had new vertigo double vision slurred speech with right facial weakness and right sided weakness involving the right arm and leg that has improved with residual facial weakness and double vision and low BP
Plan
Continue Aspirin 81 mg daily
Continue Plavix 75 mg daily
Statin therapy
PT/OT
Speech therapy
Inpatient Rehab
Subjective/Objective
Subjective Data
Date of Service: November 07, 2023
Pat feels stronger today. Still has double vision with right facial weakness
Objective Data
Vital Signs
Temp Pulse Resp BP Pulse Ox
36.3 C 88 16 137/72 98
11/07/23 11:25 11/07/23 11:25 11/07/23 11:25 11/07/23 11:25 11/07/23 11:25
Lab Results
11/07/23 08:07
11/07/23 08:07
PT 15.6 Sec (11.4-14.6) H 11/06/23 09:23
INR 1.26 11/06/23 09:23
APTT 31.9 Sec (23.4-35.0) 11/06/23 09:23
Sodium 139 mmol/L (135-145) 11/07/23 08:07
Potassium 4.5 mmol/L (3.5-5.1) 11/07/23 08:07
BUN 11 mg/dl (7-17) 11/07/23 08:07
Glucose 104 mg/dl (70-99) H 11/07/23 08:07
Calcium 9.2 mg/dl (8.4-10.2) 11/07/23 08:07
LDL Cholesterol, Calc 48 mg/dl 11/07/23 08:07
Patient Allergies
adhesive Allergy (Verified 09/12/20 05:57)
Plastic bandaids cause itching
lisinopril Allergy (Verified 09/12/20 05:57)
angioedema
cats,dogs,perfumes,candles,grass Allergy (Uncoded 09/12/20 05:57)
chest tightness,asthma
shrubs,trees, Allergy (Uncoded 09/12/20 05:57)
chest tightness,asthma
Physical Exam
-
General: Well Developed, Well Nourished, No Apparent Distress and Obese
Eyes: Able to visualize OU
HEENT: Normocephalic and Atraumatic
Neck: No Bruits Bilaterally and Full Range of Motion
Respiratory: Clear to Auscultation
Cardiac: Regular Rhythm and No Murmur
GI: Normal Bowel Sounds
Skin: Unremarkable, Warm and Dry
Extremities: No Clubbing, No Cyanosis and Edema +1
Psych: Intact Judgement/Insight
Extended Neurological Exam
Mood & Affect: Mood Unremarkable and Affect Unremarkable
Attention Span & Concentration: Awake, Alert, Interactive and No Difficulty with 2 Step Request
Memory: Able to Recall and Recalls Objects
Tremor: Hand Tremor Absent and Head Tremor Absent
Involuntary Movement: None
Speech: Quantity Unremarkable and Rate of Production Unremarkable
Cranial Nerve II: Left Eye: Pupillary Reactivity Unremarkable, Pupillary Size Unremarkable and Visual [place]ard Grossly Intact
Cranial Nerve II: Right Eye: Pupillary Reactivity Unremarkable, Pupillary Size Unremarkable and Visual [place] Grossly Intact
Cranial Nerves III, IV, : Extraocular Movement: Reduced
Cranial Nerve VII: Facial Symmetry: Reduced (Right facial weakness)
Cranial Nerve VIII: Hearing: Grossly Reduced
Cranial Nerves IX, X: Palate Movement: Deviation to Left
Cranial Nerve XI: Shoulder Shrug: Unremarkable
Cranial Nerve XII: Tongue Protusion: Deviation to Right
Muscle Strength, Overall: Reduced on Right
Muscle Bulk & Tone: Bulk Unremarkable and Tone Unremarkable
Pronator Drift: Drift in Right Upper Extremity and Drift in Right Lower Extremity
Deep Tendon Reflexes: Unremarkable Throughout
Cold Sensation: Reduced
Vibration Sensation: Reduced
Touch Sensation: Pin Prick Reduced
Coordination: Reaches for Objects without Difficulty and Other (Dysmetria(R))
Babinski Sign: Present on Right
Gait & Station: Romberg Test Positive and Wide Based
Modified Warren Score (MRS)
-
Modified Warren Scale (mRS): Moderate disability. Requires some help, able to walk unassisted.
Score: 3
Data Reviewed
-
MRI Head: Image Reviewed (Multiple embolic infarctions in MCA and CLINICAL ANALYST distribution:)
--- NOTE | 2023-11-07 14:41 | CM ---
Patient seen at bedside with family members and POA present. Patient lives alone in a 3 story condo with family and friends support. Patient PCP is Dr. Del Cid and she uses the [facility] in [place]. Patient POA stated that patient would need placement due
to the severity of her medical needs and that family and her were unable to provide sufficient care at home at this time. Patient family and POA most intrested in [facility] and PM&R assessment. Patient family made aware of PAC data and were given
information to assess options. CM will continue to follow for discharge planning needs.
Plan; acute rehab/[facility] vs SNF pending medical assessments.
--- NOTE | 2023-11-07 14:54 | W.PN.HOSP.TC ---
Today's Communication/Plan
-
GI consult
Consult T[facility] [place]
Assessment / Plan
Assessment / Plan
Acute CVA with rt sided weakness
neuro felt that symptoms started on 11/04 and thus not a candidate for thrombolysis
MRI: Multiple foci of acute to subacute infarction, as described. The majority of these foci involving the cerebellum, middle cerebellar peduncles, as well as involvement of the right lateral cindy.
Mild to moderate diffuse atrophy.
No evidence for mass involving the internal auditory canals. No evidence for cerebellopontine angle mass.
Anemia
as per POA in process of being worked up. She has been scheduled to have an abd US and has been referred to Dr. Sutton
Fe sat 24%, Ferritin pending
s/p bilateral TKR, Rt hip replacement
Hx of ovarian cancer
Hx of asthma
P:admit to tele
Plavix/ASA
Full Code
reviewed with POA (Mini Rojas/friend)
[facility]
Anticipated Discharge: 24 - 48 hours
Subjective/Interval History
-
Date of Service: November 07, 2023
Having problems with double vision
Objective Data
-
Labs:
Laboratory Results
11/07/23
08:07
WBC 2.8 L
Hgb 11.2 L
Hct 33.4 L
Plt Count 156
Sodium 139
Potassium 4.5
Chloride 104
Carbon Dioxide 25
BUN 11
Creatinine 0.6
Glucose 104 H
Calcium 9.2
Vital Signs:
Vital Signs
Temp Pulse Resp BP Pulse Ox
97.3 F 88 16 137/72 98
11/07/23 11:25 11/07/23 11:25 11/07/23 11:25 11/07/23 11:25 11/07/23 11:25
I&O
11/06/23 11/07/23 11/08/23
06:59 06:59 06:59
Intake Total 240 / 240
Output Total 660 / 660
Balance -420 / -420
Review of Systems
-
History Source: Patient, Family (brother and POA in room) and Coordinated Provider
Constitutional: Denies Fever
EENT: Reports Hearing Loss (chronic [place]) and Other (rt sided facial droop, double vision)
Respiratory: Reports No Symptoms
Cardiac: Reports No Symptoms
Abdomen/GI: Reports No Symptoms
Genitourinary: Reports No Symptoms
Musculoskeletal: Reports Muscle Weakness (chronic rt leg weakness)
Neuro: Reports Weakness
Physical Exam
-
General: Well Developed, Well Nourished, No Apparent Distress and Obese
HEENT: Normocephalic, Atraumatic and Moist Mucous Membranes
Respiratory: Clear to Auscultation; Negative Wheezes, Rales or Rhonchi
Cardiac: Regular Rhythm and S1/S2
GI: Soft, Nontender and Nondistended
Musculoskeletal: No Clubbing, No Cyanosis and No Edema
Neuro: Awake, Alert, Oriented and Other (rt sided facial droop, rt sided weakness)
[2023-11-07] MEDS: LIPITOR 20 MG PO (17:16)
--- NOTE | 2023-11-07 17:55 | PTCARENOTE ---
Upon awakening pt. stated the room was sideways. Pt. NIH unchanged from previous assessment, VSS. Pt. repositioned in bed and resting comfortably with friend at bedside. Call bed within reach.
--- NOTE | 2023-11-07 20:35 | PTCARENOTE ---
Pt with mild decreased ability to track RN with R eye to pts R- scored 8 [facility] INTERNET TECHNOLOGY MANAGER aware.
[2023-11-07] MEDS: STERILE WATER FOR INJECTION 10 ML IV (22:01)
[2023-11-07] MEDS: ROCEPHIN 1000 MG IV (22:01)
[2023-11-08] VITALS (7 sets, daily range): BP systolic 106–130; BP diastolic 49–67; PULSE 78; O2SAT 78
[2023-11-08] MEDS: NSS 1000 IV (02:05)
--- NOTE | 2023-11-08 04:54 | PTCARENOTE ---
Patient with very frequent runs of PVCs and PACs- EKG completed. House INSTRUMENT MECHANIC aware. Order for mag level this AM.
[2023-11-08] MEDS: ADVAIR HFA 45/21 MCG INHALER 2 PUFF INH ×2 (07:44→19:53)
[2023-11-08] MEDS: PEPCID 20 MG PO (08:29)
[2023-11-08] MEDS: PLAVIX 75 MG PO (08:29)
[2023-11-08] MEDS: KCL 10 MEQ PO (08:29)
[2023-11-08] MEDS: BUMEX 2 MG PO (08:30)
[2023-11-08] MEDS: ASPIR LOW (ENTERIC COATED) 81 MG PO (08:30)
[2023-11-08] MEDS: HEPARIN 5000 UNITS SC ×2 (08:32→21:00)
--- NOTE | 2023-11-08 08:37 | CON.GI ---
Addendum entered and electronically signed by Franklin Omer DO 11/08/23 10:49:
I saw and examined the patient.
The PAVING RAMMER's note was reviewed and I agree with the note.
Comment: Ms Garcia is a very pleasant 83 y.o female with past medical history as outlined below who presented with right-sided weakness along with dizziness, blurred vision, and slurred speech found to have acute CVA with MRI revealing multiple foci
of acute to subacute infarction with multiple embolic infarctions in MCA and ASSOCIATE APPLICATION DEVELOPER distribution. There was concern for patient's mild anemia without evidence of overt GI blood loss for which GI has been consulted. Patient with mild anemia with Hgb 10s
(previously baseline 14s in [id number]) without ISIDRO with iron sat 24%. She was supposed to follow up with GI as an outpatient (with Dr. Sutton) given her mild anemia as she denies any prior EGD or colonoscopy in the past. She denies any GI symptoms
including reflux/heartburn, nausea/vomiting, dysphagia/odynophagia, abdominal pain or discomfort, changes in bowel habits, constipation/diarrhea or bloody stools. She does endorse a few pound weight loss but this has been intentional. Otherwise, no
family hx of CRC or known GI malignancy. She does report taking some Advil at times but no other blood thinners previously, although now on DAPT given her CVA. Etiology of her chronic normocytic anemia is still under evaluation pending additional
lab studies, however patient is without any overt GI blood loss and further without any evidence to suggest ISIDRO. Possibly component of anemia of chronic disease contributing as well. Regardless, given her recent significant and acute CVA would defer
any endoscopic evaluation at this time as patient is without any overt GI blood loss. Further, I would NOT perform any heme testing as this will not exchange engineer in this setting especially given her recent acute CVA and would want to avoid any
anesthesia in this situation. Ultimately, can consider follow-up as an outpatient if she were to recover from a Neurologic standpoint but at this time I would defer any plans to pursue a bi-directional endoscopic evaluation in hopes of a neurologic
recovery.
Recommendations:
- Okay to continue ASA and plavix from GI standpoint
- Favor changing to empiric Pantoprazole 40 mg once daily for prophylaxis given her DAPT and prior NSAID use
- Await rest of lab w/u for her anemia and agree with hemolysis w/u
- Abdominal US is pending given mildly elevated T Bili, although may be due to hemolysis as largely unfractionated
- Defer further Hemoccult testing in this setting as will not change inpatient management regardless if this is positive or negative in setting of her acute CVA
- As without any overt GI blood loss, would defer any plans for inpatient endoscopic evaluation at this time
- If patient is to recover from a Neurologic standpoint, would then consider further discussions as an outpatient regarding endoscopic evaluation particularly if her Hgb drifts or evidence of overt GI bleeding
- Rest of care as outlined below and per primary team
GI team will sign-off. Please recontact with any questions or concerns.
Thank you for allowing me to participate in the care of this patient. Please do not hesitate to call for any further questions.
Original Note:
Consultation
-
Date/Time Consultation Requested: 11/07/23 1501
Date/Time Consultation Performed: 11/08/23 0837
Requesting Provider: Dr. Rosenthal
Performing Provider: Dr. Omer/JAMIE Byrd
Reason for Consultation: anemia
Medical History
Chief Complaint / HPI
Chief Complaint: right sided weakness
History of Present Illness:
83-year-old female with past medical history of hypertension, asthma, ovarian cancer, hard of hearing and lymphedema right lower extremity who presented to the hospital on 11/06/2023 with right sided weakness. 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
insufficiency with lacunar stroke. She was started on aspirin, Plavix, statin, PT/OT recommended. We are asked to evaluate for anemia. The patient started going to the chiropractor in September for neck pain, she states this neck pain felt
musculoskeletal and she has been seeing chiropractor for 30 yrs. She then started experiencing dizziness requiring an emergency room visit on 09/24/2023. This dizziness was related to head/neck movements. She had a CT of the head. She was
discharged with meclizine. The meclizine did not help and just made her sleepy. At that time she was found to have anemia. She made a new patient appointment with us in the office on 11/10/2023 for anemia. On presentation 11/06/2023 patient's WBC
count 3.0, hemoglobin 10.6, hematocrit 32.4 and platelets 149. Currently patient's hemoglobin 11.2 this morning. She has not received any blood products. Of note when she was seen on 09/24/2023 her hemoglobin was 9.5. Currently MCV 93.0, MCH 31.2,
iron 76, TIBC 308, percent iron saturation 24, ferritin pending, B12 and folate also pending. PT 15.6, INR 1.26, sodium 139, potassium 4.5, BUN 11, creatinine 0.6, glucose 104, hemoglobin A1c 3.7, total bilirubin 2.6 (not fractionated), AST 31, ALT
15, alk phos 103. We have no prior labs for comparison other than those dating back to 2020, which were within normal limits. She denies any F, C, N, V, D, abd pain, melena, hematochezia, dysphagia or odynophagia, no early satiety or unintentional
weight loss. She denies any changes in stool caliber, no indigestion or heartburn. No unusual bleeding or bruising. She does take Advil 600 mg daily. She senies any other NSAID use. She does not take any PPI or H2 flor. She has never had
EGD/COLONOSCOPY. She denies any family hx of GI malignancy or IBD.
Past Medical History
Past Medical History: Asthma, Cancer (Ovarian cancer), HTN and Other ([place], right LE lymphedema)
Past Surgical History: Gynecological (Hysterectomy) and Orthopedic (Bilateral TKR, right hip replacement, bilateral carpal tunnel repair)
Social History
Tobacco: Non-Smoker
Alcohol: None
Drug: None
Personal: Single
Living: Alone
Employment: Employed
Allergies / Home Medications
Allergy/AdvReac Type Severity Reaction Status Date / Time
adhesive Allergy Plastic Verified 09/12/20 05:57
bandaids
cause
itching
lisinopril Allergy angioedema Verified 09/12/20 05:57
cats,dogs,perfumes,candles,grass Allergy chest Uncoded 09/12/20 05:57
tightness,asthma
shrubs,trees, Allergy chest Uncoded 09/12/20 05:57
tightness,asthma
�Medication �Instructions �Recorded
fluticasone propionate 50 1 spray intranasal DAILY 03/06/17
mcg/actuation nasal Lung/breathing issues
spray,suspension
amlodipine 2.5 mg tablet 2.5 mg PO DAILY ##30 09/13/20
bumetanide 2 mg tablet 2 mg PO DAILY Fluid 09/13/20
retention/Swelling ##0
acetaminophen 500 mg tablet 1,000 mg PO Q6HPRN PRN mild 11/06/23
(Tylenol Extra Strength) pain/fever
fluticasone 100 mcg-salmeterol 50 1 inh inhalation R BID 11/06/23
mcg/dose blistr powdr for Lung/Breathing Issues
inhalation (Wixela Inhub)
potassium chloride 10 mEq 10 meq PO DAILY Electrolyte 11/06/23
tablet,extended release Repletion
Review of Systems
-
All other systems: A 12 pt ROS was Negative except as stated above in HPI
Vital Signs
Temp Pulse Resp BP Pulse Ox
99.4 F 86 16 116/56 96
11/08/23 02:42 11/08/23 07:48 11/08/23 07:48 11/08/23 02:42 11/08/23 07:48
Physical Exam
Exam
General: No Apparent Distress
HEENT: Anicteric
Respiratory: Clear (anterior)
Cardiac: Regular Rhythm
GI: Soft, Non Tender, Non Distended and Normal Bowel Sounds
Skin: Warm and Dry
Neuro: AO x 3 and Other (right sided weakness face, right arm)
Hematologic/Lymphatic: Lymphadenopathy (RLE)
Psych: Calm
Results
WBC 2.8 10^3/uL (4.8-10.8) L 11/07/23 08:07
Hgb 11.2 g/dL (12.0-16.0) L 11/07/23 08:07
Hct 33.4 % (37.0-47.0) L 11/07/23 08:07
MCV 93.0 fL (81.0-99.0) 11/07/23 08:07
Plt Count 156 10^3/uL (130-400) 11/07/23 08:07
Absolute Neuts (auto) 1.7 10^3/uL (1.4-6.5) 11/07/23 08:07
PT 15.6 Sec (11.4-14.6) H 11/06/23 09:23
INR 1.26 11/06/23 09:23
APTT 31.9 Sec (23.4-35.0) 11/06/23 09:23
Sodium 139 mmol/L (135-145) 11/07/23 08:07
Potassium 4.5 mmol/L (3.5-5.1) 11/07/23 08:07
Chloride 104 mmol/L (98-107) 11/07/23 08:07
Carbon Dioxide 25 mmol/L (22-30) 11/07/23 08:07
BUN 11 mg/dl (7-17) 11/07/23 08:07
Creatinine 0.6 mg/dL (0.6-1.0) 11/07/23 08:07
Calcium 9.2 mg/dl (8.4-10.2) 11/07/23 08:07
Total Bilirubin 2.6 mg/dl (0.2-1.3) H 11/06/23 09:23
AST 31 U/L (14-36) 11/06/23 09:23
ALT 15 U/L (0-35) 11/06/23 09:23
Alkaline Phosphatase 103 U/L (38-126) 11/06/23 09:23
Diagnostic Image Results:
CT Head without contrast 11/06/23:
INDICATION: 83-year-old with left facial droop and right-sided weakness. Vertigo last evening.
COMPARISON: CT of the head from September 24, 2023.
FINDINGS: Small focus of decreased density involving the central and left side of the genu of the corpus callosum, stable from previous examination, which is most likely from old infarction, although could also represent a focal area of
demyelination.
There is no evidence of a new area of decreased density by CT. There is no evidence for an area of acute to subacute infarction.
There is no intracranial mass effect with no midline shift. There is a small 4 mm calcified meningioma involving the right superolateral vertex, stable from prior examination, with no associated compression of the underlying brain parenchyma.
There is no evidence of acute intracranial hemorrhage.
Mild atrophy.
The visualized paranasal sinuses appear clear. The mastoid air cells appear clear.
Head/Neck CTA:
IMPRESSION: No evidence for hemodynamically significant stenosis of either carotid bulb or proximal internal carotid arteries.
Normal appearance of the anterior cerebral and middle cerebral arteries bilaterally, with no evidence for large vessel occlusion or high-grade stenosis.
No significant narrowing of the vertebral arteries. Basilar artery is of relatively small caliber, probably hypoplastic as both posterior cerebral arteries appear to be mainly supplied from posterior communicating arteries.
There is a heterogeneous predominantly cystic nodule within the left lobe of the thyroid, most likely an adenoma with cystic degeneration. If not previously evaluated, based on recommendations from the [employer], a follow-up
thyroid ultrasound should be considered. Reference-Managing Incidental Thyroid Nodules Detected on Imaging: White Paper of the ACR Incidental Thyroid Findings Committee. Journal of the [employer] 2015; 12:143-150.
Percent stenosis is calculated using NASCET criteria.
Electronically signed by Dustin Bird MD, 11/06/2023 9:28 AM
MRI Brain 11/07/23:
Impression : Multiple foci of acute to subacute infarction, as described. The majority of these foci involving the cerebellum, middle cerebellar peduncles, as well as involvement of the right lateral cindy.
See above narrative for individual findings.
Mild to moderate diffuse atrophy.
No evidence for mass involving the internal auditory canals. No evidence for cerebellopontine angle mass.
Prior GI Procedures:
EGD:
Colonoscopy:
Assessment / Plan
-
83-year-old female with past medical history of hypertension, asthma, ovarian cancer, hard of hearing and lymphedema right lower extremity who presented to the hospital on 11/06/2023 with right sided weakness. On 11/05/2023 in the evening she felt
lightheaded and dizzy had difficulty standing. In the AM her neighbor found her to have right-sided weakness of the face with difficulty of her right arm unable to sit or stand. She was found to have a vertebrobasilar insufficiency with lacunar
stroke she was started on aspirin, Plavix, statin, PT OT recommended. We are asked to evaluate for anemia. The patient started going to the chiropractor in September for neck pain. She then started experiencing dizziness requiring an emergency room
visit on 09/24/2023. This dizziness was related to head/neck movements. She had a CT of the head. She was discharged with meclizine. At that time she was found to have anemia. She made a new patient appointment with us in the office on 11/10/2023
for anemia. On presentation 11/06/2023 patient's WBC count 3.0, hemoglobin 10.6, hematocrit 32.4 and platelets 149. Currently patient's hemoglobin 11.2 this morning. She has not received any blood products. Of note when she was seen on 09/24/2023
her hemoglobin was 9.5. Currently MCV 93.0, MCH 31.2, iron 76, TIBC 308, percent iron saturation 24, ferritin pending, B12 and folate also pending. PT 15.6, INR 1.26, sodium 139, potassium 4.5, BUN 11, creatinine 0.6, glucose 104, hemoglobin A1c
3.7, total bilirubin 2.6 (not fractionated), AST 31, ALT 15, alk phos 103. No signs of bleeding. Awaiting stool for occult blood.
Impression:
CVA, bilateral-> the majority of these foci involving the cerebellum, middle cerebral peduncles as well as involvement of the right lateral cindy
Anemia-> macrocytic
Elevated T Bili
UTI
Plan:
-As per Neurology and IM for CVA
-Cardiology consultation pending
-Await ferritin, B12 and Folate
-US abd pending
-Fractionate bilirubin
-Check LDH and haptoglobin for hemolysis
-check stool for occult blood
-On Pepcid 20 mg daily currently for GI ppx, if stool positive for occult blood would change to pantoprazole 40 daily
-Will need to hold for the present time for endoscopic workup given acute CVA unless emergently needed.
-Further recommendations to be forthcoming
-
-
Thank you for consultation and allowing me to participate in the patient's care. Please call the [facility] GI physician during the after hours with any questions or concerns.
--- NOTE | 2023-11-08 08:37 | W.PN.HOSP.TC ---
Today's Communication/Plan
-
Evaluation for [facility] placement
Appreciate neurology, gastroenterology and cardiology
Consulted hematology, appreciate their evaluation and recommendations
Assessment / Plan
Assessment / Plan
Physical Exam
General: Not in acute distress
HEENT: Normocephalic
Respiratory: Clear to Auscultation Bilaterally
Cardiac: Regular Rhythm and S1/S2
GI: Soft, Nontender and Nondistended. Positive bowel sounds.
Musculoskeletal: No Cyanosis and No Edema
Neuro: Awake, Alert, Oriented and Other (rt sided facial droop, rt lower extremity weakness, rt UE with 4/5 strength)
Assessment/Plan
Acute CVA with presentation of right-sided weakness
neuro felt that symptoms started on 11/04 and thus not a candidate for thrombolysis
MRI (as per radiologist's report): Multiple foci of acute to subacute infarction, as described. The majority of these foci involving the cerebellum, middle cerebellar peduncles, as well as involvement of the r
right lateral cindy. Mild to moderate diffuse atrophy. No evidence for mass involving the internal auditory canals. No evidence for cerebellopontine angle mass.
-Cardiology onboard, appreciate their evaluation and recommendations
Anemia
Splenomegaly
as per POA in process of being worked up. She has been scheduled to have an abd US and has been referred to Dr. Sutton. Abdominal ultrasound completed inpatient with result of splenomegaly.
Fe sat 24%, Ferritin pending
-As per GI, no plans to pursue an EGD or Colonoscopy given patient's recent CVA, and recommendation is to defer any hemeoccult testing as this will not change room attendant. Would only consider an EGD if patient were to have significant GI bleeding
while inpatient given her recent CVA and generally Neurology likes to wait for at least 6 months before even considering procedures in these types of patients.
-Per GI: once daily PPI given patient's DAPT and prior NSAID history
-Consulted hematology, appreciate their evaluation and recommendations
s/p bilateral TKR, Rt hip replacement
Hx of ovarian cancer
Hx of asthma
P:admit to tele
Plavix/ASA
Full Code
reviewed with POA (Mini Rojas/friend)
Anticipated Discharge: > 48 hours
Subjective/Interval History
-
Date of Service: November 08, 2023
Patient was seen and examined. No new symptoms or complaints.
Objective Data
-
Labs:
Laboratory Results
11/08/23
07:14
WBC Pending
Hgb Pending
Hct Pending
Plt Count Pending
Sodium Pending
Potassium Pending
Chloride Pending
Carbon Dioxide Pending
BUN Pending
Creatinine Pending
Glucose Pending
Calcium Pending
Total Bilirubin Pending
AST Pending
ALT Pending
Alkaline Phosphatase Pending
Vital Signs:
Vital Signs
Temp Pulse Resp BP Pulse Ox
99.4 F 86 16 116/56 96
11/08/23 02:42 11/08/23 07:48 11/08/23 07:48 11/08/23 02:42 11/08/23 07:48
I&O
11/07/23 11/08/23 11/09/23
06:59 06:59 06:59
Intake Total 240 / 240 1860 / 1860
Output Total 660 / 660 2100 / 2099
Balance -420 / -420 -240 / -240
[2023-11-08 09:14] LABS: ALT (SGPT) 13 U/L (0-35); AST (SGOT) 31 U/L (14-36); Albumin 3.3 g/dl (3.5-5.0); Alkaline Phosphatase 87 U/L (38-126); Blood Urea Nitrogen 11 mg/dl (7-17); Calcium 8.8 mg/dl (8.4-10.2); Carbon Dioxide 20 mmol/L (22-30); Chloride 103 mmol/L (98-107); Estimated Creatinine Clearance 79 ml/min; Glucose 97 mg/dl (70-99); Magnesium 1.9 mg/dl (1.6-2.3); Potassium 3.6 mmol/L (3.5-5.1); Sodium 137 mmol/L (135-145); Total Bilirubin 1.8 mg/dl (0.2-1.3); Total Protein 6.1 g/dl (6.3-8.2); eGFR > 60.00
[2023-11-08 09:40] LABS: Hematocrit 30.8 % (37.0-47.0); Hemoglobin 10.4 g/dL (12.0-16.0); Mean Corp Hgb Conc. 33.8 g/dL (33.0-37.0); Mean Corpuscular Hgb 31.2 pg (27.0-31.0); Mean Corpuscular Volume 92.5 fL (81.0-99.0); Mean Platelet Volume 9.7 fL (7.4-10.4); Platelet Count 138 10^3/uL (130-400); Red Blood Cell Count 3.33 10^6/uL (4.20-5.40); Red Cell Dist. Width 16.1 % (11.5-14.5)
[2023-11-08 09:54] LABS: Absolute Neutrophils -Man Diff 1.5 10^3/uL (1.4-6.5); Band Neutrophils 0 % (0-3); Eosinophils 5 % (0-6); Lymphocytes 35 % (20-51); Monocytes 10 % (2-9); Segmented Neutrophils 50 % (42-75)
[2023-11-08 09:55] LABS: Normal RBC Morphology Yes; Platelets Checked Yes; Total Cells Counted 100
[2023-11-08 10:21] LABS: Direct Bilirubin 0.5 mg/dl (0.0-0.4)
[2023-11-08 11:19] LABS: LDH 377 U/L (120-246)
[2023-11-08] MEDS: PROTONIX 40 MG PO (12:26)
--- NOTE | 2023-11-08 14:04 | CON.NEURO ---
Neuro Assessment/Plan
Assessment
83 yr. old lady with h/o HTN who had new vertigo double vision slurred speech with right facial weakness and right sided weakness involving the right arm and leg that has improved with residual facial weakness and double vision and low BP
Plan
Continue Aspirin 81 mg daily
Continue Plavix 75 mg daily
Statin therapy
PT/OT
Speech therapy
Inpatient Rehab
Consultation
Order
Date of Consultation: 11/08/23
Requesting Provider:
Reason for Consult: stroke
Neurology follow-up note
CC: Double vision
HPI: This is an 83-year-old woman who presented to [facility] on November 06, 2023 for with right arm and face weakness, worsening of ambulation and visual deficits. Ms. Garcia has had intermittent horizontal diplopia worse with
right lateral gaze. No reports of right ear pain, change in taste, dysphagia. The patient was found to have bihemispheric acute to subacute infarct as well as being treated for urinary tract infection. The patient has been afebrile. She states
that her diplopia as well as facial weakness has been stable. No recurrent neurological deficits
Ms. Garcia was seen at [facility] for dizziness on September 24, 2023 and was found to have anemia of 9.5.
The patient was not on aspirin prior to the current admission.
Labs:LDL-48, MqN0G-9.7, WBC 2.8, RBC 3.33, Pl 156-138, normal vit B12
ua-+ LEs, nitrates and WBC/bacteria.
EKG: NSR
Brain MRI without milton(11/07/2023)�acute/subacute bihemispheric infarcts, atrophy.
CTA head/neck-No evidence for hemodynamically significant intra or extracranial stenosis.
PMH: ovarian CA, L thyroid nodule; DLP, HTM, asthma, OA, lymphedema, BL SNHL
PSH: Bilateral cataract surgery, R DAYAN, BL TKA, BL TKA, BETTY with BL oophorectomy
SH: Lives alone prior to admission, non-smoker; [employer]
FH: Not contributory to current presentation
All:ACEIs
ROS:Constitutional: Negative. Negative for chills, fever and unexpected weight change.
HENT: Positive for chronic hearing impairment, right
Eyes: Positive for diplopia
Respiratory: Positive for dyspnea on exertion..
Cardiovascular: Positive for chronic positive for chronic left edema
Gastrointestinal: Negative for abdominal pain and vomiting.
Endocrine: Negative. Negative for cold intolerance.
Musculoskeletal: Positive for gait problem neck stiffness
Skin: Negative for rash.
Allergic/Immunologic: Negative. Negative for immunocompromised state.
Neurological: Positive for imbalance
Psychiatric/Behavioral: Negative for behavioral problems, confusion and hallucinations.
General: Well developed. In no acute distress.
Cardio: Regular rate and rhythm without murmur. Extremities are without cyanosis or edema.
Neuro:
Mental Status: Alert, oriented to person, place, and date. Increased processing time. Follows simple requests consistently. Nonfluent. No hemineglect
Cranial Nerves: Pupils are equally round and reactive to light. EOMs full except for R abduction palsy. Visual andrea full to confrontation. No ptosis. Nonsustained nystagmus on the left lateral gaze. V1-V3 intact to light touch and pinprick
bilaterally, symmetric. R LMN CN VII palsy. Poor hearing AU. The palate elevated well. SCMs and traps 5/5. Tongue midline. Mild dysarthria.
Motor: Normal bulk and tone. No pronator or arm drift. Strength 5/5 throughout except for minimal right arm proximal weakness and proximal leg weakness. No clonus.
Reflexes: Limited exam due to positioning.
Sensory: Absent vibration in the toes and reduced at the ankles.
Coordination: No dysmetria or tremor.
Gait: deferred
Assessment and Plan:
I. Acute/subacute bihemispheric strokes. Likely etiology�cardioembolic
II. Mild vascular encephalopathy
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
-Continue Telemetry monitoring.
-Fall and aspiration precautions.
-Continue eye patch and ocular lubricants
-CAM (cardiology service has been consulted).
-Start ASA 81 mg QD indefinitely.
-Plavix 75 mg QD for 21 days.
-Please check TFTs
-LDL is at the goal
-Loop recorder if no events of Telemetry and normal CAM.
-PT.
-DVT prophylaxis.
I personally reviewed all radiology and labs along with past medical records pertinent to current medical problems. Total time spent in patient care is 55 minutes.
Thank you for allowing us to participate in the care of this patient. We will continue to follow. Please do not hesitate to contact us with any questions or concerns.
Subjective/Objective
Subjective Data
Date of Service: November 08, 2023
Objective Data
Vital Signs
Temp Pulse Resp BP Pulse Ox
37.2 C 16 16 120/65 97
11/08/23 08:36 11/08/23 08:36 11/08/23 08:36 11/08/23 08:36 11/08/23 08:36
Lab Results
11/08/23 07:14
11/08/23 07:14
PT 15.6 Sec (11.4-14.6) H 11/06/23 09:23
INR 1.26 11/06/23 09:23
APTT 31.9 Sec (23.4-35.0) 11/06/23 09:23
Sodium 137 mmol/L (135-145) 11/08/23 07:14
Potassium 3.6 mmol/L (3.5-5.1) 11/08/23 07:14
BUN 11 mg/dl (7-17) 11/08/23 07:14
Glucose 97 mg/dl (70-99) 11/08/23 07:14
Calcium 8.8 mg/dl (8.4-10.2) 11/08/23 07:14
LDL Cholesterol, Calc 48 mg/dl 11/07/23 08:07
Patient Allergies
adhesive Allergy (Verified 09/12/20 05:57)
Plastic bandaids cause itching
lisinopril Allergy (Verified 09/12/20 05:57)
angioedema
cats,dogs,perfumes,candles,grass Allergy (Uncoded 09/12/20 05:57)
chest tightness,asthma
shrubs,trees, Allergy (Uncoded 09/12/20 05:57)
chest tightness,asthma
Medications
-
Active Medications
Generic Name Dose Route Start Last Admin
Trade Name Freq PRN Reason Stop Dose Admin
Acetaminophen 1,000 mg 11/06/23 13:43
Acetaminophen 500 Mg Tablet PO 12/04/23 13:42
Q6HPRN PRN
mild pain/fever >100.4F
Amlodipine Besylate 2.5 mg 11/07/23 08:00
Amlodipine 2.5 Mg Tablet PO 12/05/23 07:59
DAILY VIRAL
Aspirin 81 mg 11/07/23 08:00 11/08/23 08:30
Aspirin 81 Mg (Enteric Coated) Tablet PO 12/05/23 07:59 81 mg
DAILY VIRAL Administration
Atorvastatin Calcium 20 mg 11/06/23 18:00 11/07/23 17:16
Atorvastatin (Lipitor) 20 Mg Tablet PO 12/04/23 17:59 20 mg
QPM VIRAL Administration
Bisacodyl 10 mg 11/06/23 13:43
Bisacodyl 10 Mg Rectal Suppository RECTAL 12/04/23 13:42
[id number] PRN
constipation
Bumetanide 2 mg 11/07/23 08:00 11/08/23 08:30
Bumetanide 2 Mg Tablet PO 12/05/23 07:59 2 mg
DAILY VIRAL Administration
Ceftriaxone Sodium 1,000 mg 11/06/23 22:00 11/07/23 22:01
Ceftriaxone 1000 Mg / 10 Ml Vial IV 1,000 mg
Q24H VIRAL Administration
Clopidogrel Bisulfate 75 mg 11/07/23 08:00 11/08/23 08:29
Clopidogrel 75 Mg Tablet PO 12/05/23 07:59 75 mg
DAILY VIRAL Administration
Heparin Sodium 5,000 units 11/06/23 20:00 11/08/23 08:32
Heparin 5,000 Units/Ml 1 Ml Vial SC 12/04/23 19:59 5,000 units
Q12 VIRAL Administration
Pantoprazole Sodium 40 mg 11/08/23 10:55 11/08/23 12:26
Pantoprazole 40 Mg Delayed Release Tablet PO 12/06/23 10:54 40 mg
DAILY VIRAL Administration
Polyethylene Glycol 17 grams 11/06/23 13:43
Polyethylene Glycol Powder 17 Grams Packet PO 12/04/23 13:42
DAILYPRN PRN
constipation
Potassium Chloride 10 meq 11/07/23 08:00 11/08/23 08:29
Potassium Chloride 10 Meq Extended Release Tablet PO 12/05/23 07:59 10 meq
DAILY VIRAL Administration
Fluticasone/Salmeterol 2 puff 11/06/23 20:00 11/08/23 07:44
Advair Hfa 45/21 Inhaler INH 12/04/23 19:59 2 puff
R BID VIRAL Administration
Senna/Docusate Sodium 1 tablet 11/06/23 13:43
Docusate W/Senna (Nadira-Colace) Tablet PO 12/04/23 13:42
BIDPRN PRN
constipation
Sodium Chloride 0 flush 11/06/23 14:00
Sodium Chloride 0.9% (Flush) Syringe IV 12/04/23 13:59
PER PROTOCOL VIRAL
Sterile Water 10 ml 11/06/23 22:00 11/07/23 22:01
Sterile Water For Injection 10 Ml Vial IV 12/04/23 21:59 10 ml
Q24H VIRAL Administration
Home Medications
�Medication �Instructions �Recorded
fluticasone propionate 50 1 spray intranasal DAILY 03/06/17
mcg/actuation nasal Lung/breathing issues
spray,suspension
amlodipine 2.5 mg tablet 2.5 mg PO DAILY ##30 09/13/20
bumetanide 2 mg tablet 2 mg PO DAILY Fluid 09/13/20
retention/Swelling ##0
acetaminophen 500 mg tablet 1,000 mg PO Q6HPRN PRN mild 11/06/23
(Tylenol Extra Strength) pain/fever
fluticasone 100 mcg-salmeterol 50 1 inh inhalation R BID 11/06/23
mcg/dose blistr powdr for Lung/Breathing Issues
inhalation (Wixela Inhub)
potassium chloride 10 mEq 10 meq PO DAILY Electrolyte 11/06/23
tablet,extended release Repletion
Vital Signs and Labs
-
Vital Signs and Labs:
Vital Signs
Temp Pulse Resp BP Pulse Ox
36.6 C 91 18 122/53 96
11/08/23 14:42 11/08/23 14:42 11/08/23 14:42 11/08/23 14:42 11/08/23 14:42
Lab Results
11/08/23 07:14
11/08/23 07:14
PT 15.6 Sec (11.4-14.6) H 11/06/23 09:23
INR 1.26 11/06/23 09:23
APTT 31.9 Sec (23.4-35.0) 11/06/23 09:23
Sodium 137 mmol/L (135-145) 11/08/23 07:14
Potassium 3.6 mmol/L (3.5-5.1) 11/08/23 07:14
BUN 11 mg/dl (7-17) 11/08/23 07:14
Glucose 97 mg/dl (70-99) 11/08/23 07:14
Calcium 8.8 mg/dl (8.4-10.2) 11/08/23 07:14
LDL Cholesterol, Calc 48 mg/dl 11/07/23 08:07
Medications
-
Medications:
Generic Name Dose Route Start Last Admin
Trade Name Freq PRN Reason Stop Dose Admin
Acetaminophen 1,000 mg 11/06/23 13:43 11/08/23 14:22
Acetaminophen 500 Mg Tablet PO 12/04/23 13:42 1,000 mg
Q6HPRN PRN Administration
mild pain/fever >100.4F
Amlodipine Besylate 2.5 mg 11/07/23 08:00
Amlodipine 2.5 Mg Tablet PO 12/05/23 07:59
DAILY VIRAL
Aspirin 81 mg 11/07/23 08:00 11/08/23 08:30
Aspirin 81 Mg (Enteric Coated) Tablet PO 12/05/23 07:59 81 mg
DAILY VIRAL Administration
Atorvastatin Calcium 20 mg 11/06/23 18:00 11/07/23 17:16
Atorvastatin (Lipitor) 20 Mg Tablet PO 12/04/23 17:59 20 mg
QPM VIRAL Administration
Bisacodyl 10 mg 11/06/23 13:43
Bisacodyl 10 Mg Rectal Suppository RECTAL 12/04/23 13:42
[id number] PRN
constipation
Bumetanide 2 mg 11/07/23 08:00 11/08/23 08:30
Bumetanide 2 Mg Tablet PO 12/05/23 07:59 2 mg
DAILY VIRAL Administration
Ceftriaxone Sodium 1,000 mg 11/06/23 22:00 11/07/23 22:01
Ceftriaxone 1000 Mg / 10 Ml Vial IV 1,000 mg
Q24H VIRAL Administration
Clopidogrel Bisulfate 75 mg 11/07/23 08:00 11/08/23 08:29
Clopidogrel 75 Mg Tablet PO 12/05/23 07:59 75 mg
DAILY VIRAL Administration
Heparin Sodium 5,000 units 11/06/23 20:00 11/08/23 08:32
Heparin 5,000 Units/Ml 1 Ml Vial SC 12/04/23 19:59 5,000 units
Q12 VIRAL Administration
Menthol/Methyl Salicylate 0 applic 11/08/23 14:14
Bengay-Like Cream TOPICAL 12/06/23 14:13
TID VIRAL
Pantoprazole Sodium 40 mg 11/08/23 10:55 11/08/23 12:26
Pantoprazole 40 Mg Delayed Release Tablet PO 12/06/23 10:54 40 mg
DAILY VIRAL Administration
Polyethylene Glycol 17 grams 11/06/23 13:43
Polyethylene Glycol Powder 17 Grams Packet PO 12/04/23 13:42
DAILYPRN PRN
constipation
Potassium Chloride 10 meq 11/07/23 08:00 11/08/23 08:29
Potassium Chloride 10 Meq Extended Release Tablet PO 12/05/23 07:59 10 meq
DAILY VIRAL Administration
Fluticasone/Salmeterol 2 puff 11/06/23 20:00 11/08/23 07:44
Advair Hfa 45/21 Inhaler INH 12/04/23 19:59 2 puff
R BID VIRAL Administration
Senna/Docusate Sodium 1 tablet 11/06/23 13:43
Docusate W/Senna (Nadira-Colace) Tablet PO 12/04/23 13:42
BIDPRN PRN
constipation
Sodium Chloride 0 flush 11/06/23 14:00
Sodium Chloride 0.9% (Flush) Syringe IV 12/04/23 13:59
PER PROTOCOL VIRAL
Sterile Water 10 ml 11/06/23 22:00 11/07/23 22:01
Sterile Water For Injection 10 Ml Vial IV 12/04/23 21:59 10 ml
Q24H VIRAL Administration
Home Medications
-
Home Medications
fluticasone propionate 50 mcg/actuation nasal spray,suspension 1 spray intranasal DAILY Lung/breathing issues 03/06/17
amlodipine 2.5 mg tablet 2.5 mg PO DAILY ##30 09/13/20
bumetanide 2 mg tablet 2 mg PO DAILY Fluid retention/Swelling ##0 09/13/20
acetaminophen 500 mg tablet (Tylenol Extra Strength) 1,000 mg PO Q6HPRN PRN mild pain/fever 11/06/23
fluticasone 100 mcg-salmeterol 50 mcg/dose blistr powdr for inhalation (Brent Inhub) 1 inh inhalation R BID Lung/Breathing Issues 11/06/23
potassium chloride 10 mEq tablet,extended release 10 meq PO DAILY Electrolyte Repletion 11/06/23
[2023-11-08] MEDS: TYLENOL 1000 MG PO (14:22)
[2023-11-08] MEDS: BenGay-Like 1 APPLIC TOPICAL (14:54)
--- NOTE | 2023-11-08 14:55 | CON.CAR ---
Addendum entered and electronically signed by Mickey Fleming MD 11/08/23 17:19:
I saw and examined the patient.
The [employer]'s note was reviewed and I agree with the note.
Comment: 83-year-old female with hypertension with asthma, hypertension, and ovarian cancer status post total hysterectomy and chronic lymphedema who presented to the emergency department 11/06/2023 with right sided weakness and facial droop.
- TTE pending, possible CAM thereafter
- ILR discussion
Original Note:
Consultation
Consultation Request
Date/Time Consultation Requested: 11/08/2023 14:30
Date/Time Consultation Performed: 11/08/2023 15:00
Requesting Provider: Dr. Porras
Performing Provider: JAMIE Vásquez for Dr. Fleming
Reason for Consultation: CAM
Medical History
-
Chief Complaint: Right facial droop, weakness
History of Present Illness:
Kayley Garcia is an 83-year-old female with hypertension with asthma, hypertension, and ovarian cancer status post total hysterectomy and chronic lymphedema who presented to the emergency department 11/06/2023 with right sided weakness and facial
droop. She had associated dizziness, blurred vision, and slurred speech. While being evaluated in the emergency department, there was also concern for change in mental status. She was not given IV tenecteplase nor IAT due to timing of onset of
symptoms. Cardiology was consulted for CAM evaluation.
Past Medical History
Past Medical History: Asthma, Cancer (Ovarian), HTN and Other (Lymphedema)
Past Surgical History: Gynecological and Orthopedic
Social History
Tobacco: Non-Smoker
Alcohol: None
Drug: None
Personal: Single
Family History
Family History: Reviewed & Not Pertinent
Allergies / Home Medications
Allergy/AdvReac Type Severity Reaction Status Date / Time
adhesive Allergy Plastic Verified 09/12/20 05:57
bandaids
cause
itching
lisinopril Allergy angioedema Verified 09/12/20 05:57
cats,dogs,perfumes,candles,grass Allergy chest Uncoded 09/12/20 05:57
tightness,asthma
shrubs,trees, Allergy chest Uncoded 09/12/20 05:57
tightness,asthma
�Medication �Instructions �Recorded �Confirmed �Type
fluticasone propionate 50 1 spray intranasal DAILY 03/06/17 11/06/23 History
mcg/actuation nasal Lung/breathing issues
spray,suspension
amlodipine 2.5 mg tablet 2.5 mg PO DAILY ##30 09/13/20 11/06/23 Rx
bumetanide 2 mg tablet 2 mg PO DAILY Fluid 09/13/20 11/06/23 Rx
retention/Swelling ##0
acetaminophen 500 mg tablet 1,000 mg PO Q6HPRN PRN mild 11/06/23 11/06/23 History
(Tylenol Extra Strength) pain/fever
fluticasone 100 mcg-salmeterol 50 1 inh inhalation R BID 11/06/23 11/06/23 History
mcg/dose blistr powdr for Lung/Breathing Issues
inhalation (Wixela Inhub)
potassium chloride 10 mEq 10 meq PO DAILY Electrolyte 11/06/23 11/06/23 History
tablet,extended release Repletion
Review of Systems
-
History Source: Patient
All other systems: Negative unless noted
Constitutional: Fatigue
EENT: Other (Right visual loss)
Respiratory: No Symptoms
Cardiac: No Symptoms
Abdomen/GI: No Symptoms
: No Symptoms
Musculoskeletal: Edema (Chronic lymphedema)
Skin: No Symptoms
Neurological: Weakness
Endocrine: No Symptoms
Hematologic/Lymphatic: No Symptoms
Physical Exam
Vital Signs
Temp Pulse Resp BP Pulse Ox
98 F 91 18 122/53 96
11/08/23 14:42 11/08/23 14:42 11/08/23 14:42 11/08/23 14:42 11/08/23 14:42
Lab Results
11/08/23 07:14
11/08/23 07:14
Troponin I < 0.012 ng/ml 11/06/23 09:24
Physical Exam
General: Well Developed, Well Nourished, No Apparent Distress and Comfortable
HEENT: Normocephalic, Anicteric and Moist Mucous Membranes
Respiratory: Clear
Cardiac: S1/S2, Regular Rhythm and Peripheral Edema
Breast: Deferred by me
GI: Soft, Non Tender and Non Distended
Rectal: Deferred by Provider
Genito-urinary: No Costovertebral Tender
Musculoskeletal: No Clubbing and No Cyanosis
Skin: Warm and Dry
Neuro: AO x 3
Hematologic/Lymphatic: No Lymphadenopathy
Psych: Calm
Impression / Plan
-
CVA
-MRI with acute to subacute infarction with multiple foci, majority involving cerebellum, middle cerebellar peduncles, as well as involvement of right lateral cindy
-On DAPT (aspirin 81 mg and clopidogrel 75 mg)
-Her LDL is 48 and HgbA1c 3.7%
-Echocardiogram
-CAM requested by Neurology, she does have some dysphagia and is on a soft diet (new with CVA)
-If thrombus is not diagnosed and telemetry remained stable, consider ILR
Hypertension, BP stable, amlodipine on hold for hypotension
PVCs, frequent, asymptomatic
Hypertriglyceridemia, triglycerides 255
RBBB
Lymphedema, on bumetanide as an outpatient
Splenomegaly, per primary
Data Reviewed
-
EKG: Report Reviewed by me (Sinus rhythm, RBBB, rate 94; Sinus rhythm, RBBB, rate 86)
Ultrasound: Report Reviewed by me (Abdomen: Splenomegaly with a splenic index of 857 (normal range is 120-480).)
MRI: Report Reviewed by me (Brain: Multiple foci of acute to subacute infarction. The majority of these foci involving the cerebellum, middle cerebellar peduncles, as well as involvement of the right lateral cindy.)
Labs: Labs Reviewed by me
[2023-11-08 15:18] LABS: Folate 4.5 ng/ml (2.76-20); Vitamin B12 394 pg/ml (239-931)
[2023-11-08] MEDS: BenGay-Like TOPICAL ×2 (17:02→21:10)
[2023-11-08] MEDS: LIPITOR 20 MG PO (17:48)
[2023-11-08] MEDS: ROCEPHIN 1000 MG IV (20:59)
[2023-11-08] MEDS: STERILE WATER FOR INJECTION 10 ML IV (21:00)
[2023-11-08 21:11] LABS: Reticulocyte Count 4.3 % (0.4-2.8)
[2023-11-08 22:20] LABS: TSH Reflex To Free T4 2.56 uIU/ml (0.47-4.68)
[2023-11-09] VITALS (9 sets, daily range): BP systolic 109–148; BP diastolic 52–72; PULSE 103; O2SAT 97; BMI 32.1
[2023-11-09] MEDS: ADVAIR HFA 45/21 MCG INHALER 2 PUFF INH ×2 (07:42→19:48)
[2023-11-09] MEDS: KCL 10 MEQ PO (08:17)
[2023-11-09] MEDS: PROTONIX 40 MG PO (08:17)
[2023-11-09] MEDS: BUMEX 2 MG PO (08:17)
[2023-11-09] MEDS: PLAVIX 75 MG PO (08:18)
[2023-11-09] MEDS: HEPARIN 5000 UNITS SC ×2 (08:18→20:05)
[2023-11-09] MEDS: ASPIR LOW (ENTERIC COATED) 81 MG PO (08:18)
[2023-11-09] MEDS: BenGay-Like 1 APPLIC TOPICAL ×3 (08:20→20:06)
--- NOTE | 2023-11-09 08:50 | CON.MD ---
Documented by User: Lianna Garcia PA-C 11/09/23 17:05
Consultation - Medical
-
Referring Provider: Tiago Hoover
Chief Complaint: CVA
History of Present Illness: 83-year-old female with PMH of (hypertension, asthma, and ovarian cancer status post total hysterectomy and chronic lymphedema since right hip replacement) presented to the emergency department on 11/06/2023 with right
sided weakness and facial droop associated with dizziness, blurred vision, and slurred speech with concern of mental status change. She was not given IV tenecteplase nor IAT due to timing of onset of symptoms.
Head CT scan demonstrates no acute intracranial abnormalities.
probable tiny 4 mm meningioma in the right superior lateral
vertex.Mild atrophy is noted.
Head and neck CTA: No evidence for hemodynamically significant
stenosis of either carotid bulbs or proximal internal carotid
arteries. No significant narrowing of the vertebral arteries. Basal
artery is of relatively small caliber, probably hypoplastic. There
is a heterogeneous, predominantly cystic nodule in the left lobe of
the thyroid, most likely adenoma with cystic degeneration. Followup
thyroid ultrasound should be considered.
MRI Brain: 11/07/23-There is no evidence for intracranial mass lesion or mass effect with no midline shift. There is no evidence for acute intracranial hemorrhage.
1. right cerebellar hemisphere,-foci of acute to subacute infarction, measuring up to 6 mm in diameter in the posterolateral and inferior regions. A punctate focus near the junction of the right cerebellar hemisphere and the ventricles cerebellar
peduncle.
2.left cerebellar hemisphere- there are several small foci of acute to subacute infarction. Also a small focus of the junction and the middle cerebellar peduncle.
2.left anterolateral occipital lobe- likely with a small focus of acute to subacute infarction.
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
GI was consulted for patient with mild anemia with Hgb 10s (previously baseline 14s in [id number]) without ISIDRO with iron sat 24%. She was supposed to follow up with GI as an outpatient (with Dr. Sutton) given her mild anemia as she denies any prior
EGD or colonoscopy in the past. Gi deferring endoscopy or other work-up in the setting of recent cva and patient without overt GI bleed. Will workup OP. Ultrasound of abdomen reveals:11/08/23 -Splenomegaly with a splenic index of 857 (normal range
is 120-480).
Past Medical History: hypertension, asthma, and ovarian cancer status post total hysterectomy and chronic lymphedema
Procedure History: bilateral knee replacement, and right hip replacement, hysterectomy
Family History: not contributory for cva, CAD�cancer, DM
Social History:
Functional Level Premorbidly: Independent with all activities
Functional Level Currently: Bed mobility- Mod assist, transfers- mod assist, ambulates 8 feet mod assist of 2 with RW,
Tobacco: Denies
Alcohol: Denies
Drug use: Denies
Lives with: Alone
24-hour assistance available:
Number of floors: elevator
# steps to enter: 0, if elevator breaks down 3 FF
# steps to second floor: 3rd floor of condo
Potential First floor set up: 1 floor condo
Driving: no
Occupation: retired
�
Allergies:
Allergy/AdvReac Type Severity Reaction Status Date / Time
adhesive Allergy Plastic Verified 09/12/20 05:57
bandaids
cause
itching
lisinopril Allergy angioedema Verified 09/12/20 05:57
cats,dogs,perfumes,candles,grass Allergy chest Uncoded 09/12/20 05:57
tightness,asthma
shrubs,trees, Allergy chest Uncoded 09/12/20 05:57
tightness,asthma
Review of Systems:
Constitutional: (x) Normal _
Eye: (x) Normal _
Ear/Nose/Throat: (x) , double vision_
Respiratory: (x) Normal _
Cardiovascular: (x) Normal _
Gastrointestinal: (x) Anemia.
Genitourinary: (x) Normal _
Musculoskeletal: (x) weakness_
Integumentary: (x) Normal _
Neurologic: (x) cva
Psychiatric: (x) Normal _
Endocrine: (x) Normal _
Hematologic/Lymphatic: (x)lymphedema
Allergic/Immunologic: (x) Normal _
Medications:
Active Current Visit Medication List
Category Date Time Status
Acetaminophen [Tylenol] Med 11/06/23 13:43 Active
1,000 mg PO Q6HPRN PRN
Amlodipine [Norvasc] Med 11/07/23 08:00 Hold
2.5 mg PO DAILY
Aspirin Low Dose EC [Aspir Low (Enteric Coated)] Med 11/07/23 08:00 Active
81 mg PO DAILY
Atorvastatin [Lipitor] Med 11/06/23 18:00 Active
20 mg PO QPM
Bisacodyl [Dulcolax] Med 11/06/23 13:43 Active
10 mg RECTAL [id number] PRN
Bumetanide [Bumex] Med 11/07/23 08:00 Active
2 mg PO DAILY
CefTRIAXone [Rocephin] Med 11/06/23 22:00 Active
1,000 mg IV Q24H
Clopidogrel Bisulfate [Plavix] Med 11/07/23 08:00 Active
75 mg PO DAILY
Docusate W/Senna [Senokot-S] Med 11/06/23 13:43 Active
1 tablet PO BIDPRN PRN
Flush (0.9% Sodium Chloride) [Flush (Nss)] Med 11/06/23 14:00 Active
See Dose Instructions IV PER PROTOCOL
Fluticasone/Salmeterol 45/21 [Advair Hfa 45/21 Mcg Med 11/06/23 20:00 Active
Inhaler]
2 puff INH R BID
Heparin Med 11/06/23 20:00 Active
5,000 units SC Q12
Methylsalicylate/Menthol [BenGay-Like] Med 11/08/23 14:14 Active
See Dose Instructions TOPICAL TID
Pantoprazole [Protonix] Med 11/08/23 10:55 Active
40 mg PO DAILY
Polyethylene Glycol Powder [Miralax] Med 11/06/23 13:43 Active
17 grams PO DAILYPRN PRN
Potassium Chloride [KCl] Med 11/07/23 08:00 Active
10 meq PO DAILY
Sterile Water [Sterile Water For Injection] Med 11/06/23 22:00 Active
10 ml IV Q24H
Vitals:
Temp Pulse Resp BP Pulse Ox
97.5 F 76 14 109/63 95
11/09/23 07:15 11/09/23 08:17 11/09/23 07:46 11/09/23 08:17 11/09/23 07:46
Height 5 ft 3 in
Actual Weight 92.6 kg
Physical Exam:
General Appearance/Observation: Well-developed, well-nourished individual in no apparent distress. Sitting on edge of bed. Pleasant
Pain/Comfort Assessment: Denies
Mood/Affect: Appropriate
Integumentary/Operative Site:
�� Pressure Ulcer Evaluation: absent over heels.
��
�� Other Type of Wound: absent
��
Eyes: Conjunctiva/Lids: normal ��� Pupils: pupils equal round and reactive to light and Accommodation
Ears/Nose/Throat: oral mucosa moist,� throat clear.������������ Lips/Teeth/Gums: normal
Neck: No muscle spasm or tenderness
Cardiovascular: Heart: regular, no murmur
Pulses: dorsalis pedis 1+ bilaterally
Respiratory: Respiratory Effort/Chest Expansion: normal ������� Auscultation: Clear to auscultation bilaterally
Gastrointestinal: abdomen not tender, no distension, normal abdominal bowel sounds
Genitourinary: No [place]
Extremities: Edema: lymphedema bilaterally Cyanosis: None Trophic changes: None
Neurology Exam:
Orientation: Alert, Oriented to self, Time, Place
Memory: Intact for immediate medical concerns
Higher cortical function
Repetition: NT
Comprehension: Intact
Two step command: Intact
Naming: Intact
Cranial Nerves:
�� CNII: Pupillary light reflex: Intact��� Visual Field: double vision, drooping of the right lower lid, mild impairment on the right
�� CN III, IV, : Extraocular muscles: Intact
�� CN V: Facial Sensation at Forehead: Intact, Maxilla: Intact, Mandible: Intact
�� CN VII: Facial movement: moderate right facial weakness
�� CN VIII: Hearing: [place]
�� CN IX/X: Speech & swallow: dysarthria Position of Uvula: Midline
�� CN XI: Shoulder shrug: mild asymmetric right
�� CN XII: Tongue protrusion: Midline
Sensory:
�� Light touch: Intact in bilateral upper and lower extremities
��
Reflexes:
�� Biceps: 1+ bilaterally
�� Brachioradialis: 1+ bilaterally
�� Triceps: 1+ bilaterally
�� Patellar: 1+ bilaterally
�� Achilles: absent bilaterally
�� Babinski: Down going bilaterally
�� Clonus: None
�� Marianne: Negative bilaterally
Cerebellar: Dysmetria/Ataxia:on right and mild on left
Musculoskeletal:
Motor: (Manual muscle scale 0-5)
Muscle SA EF WE EE FF FA HF KE DF EHL PF
Right� 4 4+ 4 4 4 4 4 4 5 4 5
Left 4 5 5 5 4 4 5 5 5 5 5
Tone: Normal in all extremities
Range of Motion: Passively within normal limits in all extremities
Lab Results:
Labs
WBC 2.6 10^3/uL (4.8-10.8) L 11/09/23 08:31
RBC 3.81 10^6/uL (4.20-5.40) L 11/09/23 08:31
Hgb 11.3 g/dL (12.0-16.0) L 11/09/23 08:31
Hct 34.8 % (37.0-47.0) L 11/09/23 08:31
MCV 91.3 fL (81.0-99.0) 11/09/23 08:31
MCH 29.7 pg (27.0-31.0) 11/09/23 08:31
MCHC 32.5 g/dL (33.0-37.0) L 11/09/23 08:31
RDW 16.2 % (11.5-14.5) H 11/09/23 08:31
Plt Count 166 10^3/uL (130-400) D 11/09/23 08:31
Plt Count Comment Yes 11/08/23 07:14
MPV 9.8 fL (7.4-10.4) 11/09/23 08:31
Abs Immat Gran (auto) 0.0 10^3/uL (0-0.05) 11/09/23 08:31
Absolute Neuts (auto) 1.5 10^3/uL (1.4-6.5) 11/09/23 08:31
Absolute Lymphs (auto) 0.4 10^3/uL (1.2-3.4) L 11/09/23 08:31
Absolute Monos (auto) 0.5 10^3/uL (0.1-0.6) 11/09/23 08:31
Absolute Eos (auto) 0.1 10^3/uL (0-0.7) 11/09/23 08:31
Absolute Basos (auto) 0.1 10^3/uL (0-0.2) 11/09/23 08:31
CBC Comment 11/09/23 08:31
Total Counted 100 11/08/23 07:14
Immature Gran % 0.4 % (0-0.5) 11/09/23 08:31
Neutrophils % 58.9 % (42.2-75.2) 11/09/23 08:31
Lymphocytes % 15.4 % (20.5-51.1) L 11/09/23 08:31
Monocytes % 18.8 % (1.7-9.3) H 11/09/23 08:31
Eosinophils % 4.2 % (0-6) 11/09/23 08:31
Basophils % 2.3 % (0-2) H 11/09/23 08:31
Nucleated RBC % 0 % 11/09/23 08:31
Abs Neuts (Manual) 1.5 10^3/uL (1.4-6.5) 11/08/23 07:14
Segmented Neutrophils 50 % (42-75) 11/08/23 07:14
Band Neutrophils 0 % (0-3) 11/08/23 07:14
Lymphocytes (Manual) 35 % (20-51) 11/08/23 07:14
Monocytes (Manual) 10 % (2-9) H 11/08/23 07:14
Eosinophils (Manual) 5 % (0-6) 11/08/23 07:14
Normal RBC Morphology Yes 11/08/23 07:14
Retic Count Cancelled 11/08/23 17:37
PT 15.6 Sec (11.4-14.6) H 11/06/23 09:23
INR 1.26 11/06/23 09:23
APTT 31.9 Sec (23.4-35.0) 11/06/23 09:23
Sodium 139 mmol/L (135-145) 11/09/23 08:31
Potassium 4.0 mmol/L (3.5-5.1) 11/09/23 08:31
Chloride 97 mmol/L (98-107) L 11/09/23 08:31
Carbon Dioxide 27 mmol/L (22-30) 11/09/23 08:31
BUN 15 mg/dl (7-17) 11/09/23 08:31
Creatinine 0.8 mg/dL (0.6-1.0) 11/09/23 08:31
Estimated Creat Clear 60 ml/min 11/09/23 08:31
eGFR > 60.00 11/09/23 08:31
Glucose 118 mg/dl (70-99) H 11/09/23 08:31
Hemoglobin A1c 3.7 % (4.0-5.6) L 11/07/23 08:07
Calcium 9.1 mg/dl (8.4-10.2) 11/09/23 08:31
Magnesium 1.9 mg/dl (1.6-2.3) 11/08/23 07:14
Iron 76 ug/dl (37-170) 11/07/23 08:07
TIBC 308 ug/dl (265-497) 11/07/23 08:07
% Saturation 24 % (20-50) 11/07/23 08:07
Ferritin 579.0 ng/ml (11.1-264.0) H 11/07/23 08:07
Total Bilirubin 2.1 mg/dl (0.2-1.3) H 11/09/23 08:31
Direct Bilirubin 0.5 mg/dl (0.0-0.4) H 11/08/23 07:14
AST 32 U/L (14-36) 11/09/23 08:31
ALT 14 U/L (0-35) 11/09/23 08:31
Alkaline Phosphatase 96 U/L (38-126) 11/09/23 08:31
Lactate Dehydrogenase Cancelled 11/08/23 17:37
Troponin I < 0.012 ng/ml 11/06/23 09:24
Total Protein 6.7 g/dl (6.3-8.2) 11/09/23 08:31
Albumin 3.7 g/dl (3.5-5.0) 11/09/23 08:31
Triglycerides 255 mg/dl (10-149) H 11/07/23 08:07
Total Cholesterol 109 mg/dl (50-199) 11/07/23 08:07
LDL Cholesterol, Calc 48 mg/dl 11/07/23 08:07
VLDL Cholesterol, Calc 51 mg/dl (0-30) H 11/07/23 08:07
HDL Cholesterol 10 mg/dl 11/07/23 08:07
Vitamin B12 394 pg/ml (239-931) 11/07/23 08:07
Folate 4.5 ng/ml (2.76-20) 11/07/23 08:07
TSH (Reflex) 2.56 uIU/ml (0.47-4.68) 11/08/23 17:23
Urine Color Yellow 11/06/23 21:02
Urine Clarity Very cloudy (Clear) 11/06/23 21:02
Urine pH 6.0 (5.0-9.0) 11/06/23 21:02
Ur Specific Graham 1.020 (<1.030) 11/06/23 21:02
Urine Ketones Negative (Negative) 11/06/23 21:02
Ur Occult Blood Reflex 1+ (Negative) A 11/06/23 21:02
Urine Nitrite (Reflex) Positive (Negative) A 11/06/23 21:02
Urine Bilirubin Negative (Negative) 11/06/23 21:02
Urine Urobilinogen 2+ (Neg - 1+) A 11/06/23 21:02
Leukocyte Esterase Rfl 2+ (Negative) A 11/06/23 21:02
Urine RBC 0-2 /HPF (0-2) 11/06/23 21:02
Urine WBC (Reflex) 50-60 /HPF (0-5) A 11/06/23 21:02
Ur Squamous Epith Cells 0-2 /LPF (Few) 11/06/23 21:02
Urine Bacteria (Reflex) Many (Negative) A 11/06/23 21:02
Urine Glucose Negative (Negative) 11/06/23 21:02
Urine Albumin (Reflex) Trace (Neg - Trace) 11/06/23 21:02
POC Glucose 114 mg/dl (70-99) H 11/06/23 20:22
Direct Antiglob Test Negative (Negative) 11/08/23 21:17
JAMES, IgG Specific Negative (Negative) 09/23/24 21:17
JAMES, Complement Neg (Negative) 11/08/23 21:17
�
Diagnostic Results: as per HPI
Assessment 83-year-old female with PMH of (hypertension, asthma, and ovarian cancer status post total hysterectomy and chronic lymphedema since right hip replacement) presented to the emergency department on 11/06/2023 with right sided weakness and
facial droop associated with dizziness, blurred vision, and slurred speech with CVA on MRI with bilateral involvement with multiple territories- She was not given IV tenecteplase nor IAT due to timing of onset of symptoms.
Plan
PT/OT to increase independence with ADLs, improve balance, coordination, endurance, strength, mobility, community reintegration, decreased burden of care on others and family education.
CVA: Bilateral involvement with multiple territories- aspirin, plavix 75mg qd, statin, and blood pressure control (SBP less than 180 and diastolic less than 100 to participate with therapy for ischemic stroke). Continue to monitor neurologic status.
right dominant hemiparesis: High risk for falls and sliding out of chair/bed. Safety reinforced.
- Avoid using affected arm to help lift or pull patient as this will cause trauma to the shoulder.
Double vision: wearing right eye patch. May benefit from ophthalmology evaluation-if no improvement
Dysphagia: speech evaluation, oral care protocol, aspiration precautions.� Advance diet as tolerated.
Dysarthria: speech evaluation
HTN: continue medications, monitor closely
HLD: Statin
Bilateral lower extremity/Lymphedema: Consider TEDS as able. Increased fluid will cause more force requirement to move lower extremities which requires more strength and increases fatigue.
Anemia: Likely multifactorial.�Hgb 10. (14 range in 8236-7299). Abdomen U/S-Splenomegaly with a splenic index of 857 (normal range is 120-480). Reticulo count pending. Continue to monitor.
Psych: Psychology consult.� Monitor mood, adjust medications as needed.
Skin: monitor for pressure sores/rashes/lesions.
Pain: acetaminophen as needed.
Bowel: Colace and Senna, PRN bisacodyl.
Bladder: Time void, PVRs, PRN straight cath.
GI Prophylaxis: Pantoprazole 40mg- recommended by GI. Patient with h/o occasional use of NSAIds
DVT Prophylaxis: mechanical and Heparin 5000mg SC q 12
Pulmonary: Incentive spirometry
Morbid obesity: Continue to sexual assault counselor patient about diet adjustments to control obesity. Body habitus and increased force to move body and extremities causes further difficulty with functional tasks.
Safety: Continue to reinforce assistance with all transfers.
Code Status:� Full code
Dispo (date/plan/equipment needs): Home with family care.� Social history reviewed.
Functional and Medical Goals: Modified Independent with ADL�s, ambulation, transfers
Discharge Destination: Acute inpatient rehabilitation once medically stable and cleared and all pending studies have been completed
Summary of recommendations: Patient with CVA associated with right sided weakness would benefit from acute inpatient rehabilitation for PT/OT to increase independence with ADLs, improve balance, coordination, endurance, strength, mobility, community
reintegration, decreased burden of care on others and family education.
CVA: Bilateral involvement with multiple territories- aspirin, Plavix 75mg qd, statin, and blood pressure control (SBP less than 180 and diastolic less than 100 to participate with therapy for ischemic stroke). Continue to monitor neurologic status.
Has mobile manager
right dominant hemiparesis: High risk for falls and sliding out of chair/bed. Safety reinforced.
- Avoid using affected arm to help lift or pull patient as this will cause trauma to the shoulder.
Double vision: wearing right eye patch. May benefit from ophthalmology evaluation-if no improvement
Dysphagia: speech evaluation, oral care protocol, aspiration precautions.� Advance diet as tolerated.
Dysarthria: speech evaluation
HTN: continue medications, monitor closely
Psych: Psychology consult.� Monitor mood, adjust medications as needed.
Skin: monitor for pressure sores/rashes/lesions.
Pain: acetaminophen as needed.
Bowel: Colace and Senna, PRN bisacodyl.
Bladder: Time void, PVRs, PRN straight cath.
GI Prophylaxis: Pantoprazole 40mg- recommended by GI. Patient with h/o occasional use of NSAIds
DVT Prophylaxis: mechanical and Heparin 5000mg SC q 12
Pulmonary: Incentive spirometry
Safety: Continue to reinforce assistance with all transfers.
Thank you for allowing me to care for your patient. Please contact me with any questions or concerns.
This note was dictated using a voice recognition system. Please excuse any typographical errors from line tester. If you believe there are any discrepancies, please notify our office.

Documented by User: Tk Olmstead MD 11/09/23 17:58
Consultation - Medical
-
Referring Provider: Dr. Tiago Kelsey
Chief Complaint: CVA
History of Present Illness: 83-year-old female with PMH of (hypertension, asthma, and ovarian cancer status post total hysterectomy and chronic lymphedema since right hip replacement) presented to the emergency department on 11/06/2023 with right
sided weakness and facial droop associated with dizziness, blurred vision, and slurred speech with concern of mental status change. She was not given IV tenecteplase nor IAT due to timing of onset of symptoms.
Head CT scan demonstrates no acute intracranial abnormalities.
probable tiny 4 mm meningioma in the right superior lateral
vertex.Mild atrophy is noted.
Head and neck CTA: No evidence for hemodynamically significant
stenosis of either carotid bulbs or proximal internal carotid
arteries. No significant narrowing of the vertebral arteries. Basal
artery is of relatively small caliber, probably hypoplastic. There
is a heterogeneous, predominantly cystic nodule in the left lobe of
the thyroid, most likely adenoma with cystic degeneration. Followup
thyroid ultrasound should be considered.
MRI Brain: 11/07/23-There is no evidence for intracranial mass lesion or mass effect with no midline shift. There is no evidence for acute intracranial hemorrhage.
1. right cerebellar hemisphere,-foci of acute to subacute infarction, measuring up to 6 mm in diameter in the posterolateral and inferior regions. A punctate focus near the junction of the right cerebellar hemisphere and the ventricles cerebellar
peduncle.
2.left cerebellar hemisphere- there are several small foci of acute to subacute infarction. Also a small focus of the junction and the middle cerebellar peduncle.
2.left anterolateral occipital lobe- likely with a small focus of acute to subacute infarction.
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
GI was consulted for patient with mild anemia with Hgb 10s (previously baseline 14s in [id number]) without ISIDRO with iron sat 24%. She was supposed to follow up with GI as an outpatient (with Dr. Sutton) given her mild anemia as she denies any prior
EGD or colonoscopy in the past. Gi deferring endoscopy or other work-up in the setting of recent cva and patient without overt GI bleed. Will workup OP. Ultrasound of abdomen reveals:11/08/23 -Splenomegaly with a splenic index of 857 (normal range
is 120-480).
Overall patient is doing better. She still has significant vision problems with both eyes open but can see with left eye by itself, has some blurry vision with vision in the right eye, has drooping of the right eyelid. Has some trouble with
getting around, hoping to get into therapy where she can get back to living alone and driving. Does have lower extremity lymphedema garments and a lymphedema pump.
Past Medical History: hypertension, asthma, and ovarian cancer status post total hysterectomy and chronic lymphedema
Procedure History: bilateral knee replacement, and right hip replacement, hysterectomy
Family History: not contributory for cva, CAD�cancer, DM
Social History:
Functional Level Premorbidly: Independent with all activities
Functional Level Currently: Bed mobility- Mod assist, transfers- mod assist, ambulates 8 feet mod assist of 2 with RW,
Tobacco: Denies
Alcohol: Denies
Drug use: Denies
Lives with: Alone
24-hour assistance available: No
Number of floors: elevator
# steps to enter: 0, if elevator breaks down 3 FF
# steps to second floor: 3rd floor of condo
Potential First floor set up: 1 floor condo
Driving: Yes
Occupation: retired
�
Allergies:
Allergy/AdvReac Type Severity Reaction Status Date / Time
adhesive Allergy Plastic Verified 09/12/20 05:57
bandaids
cause
itching
lisinopril Allergy angioedema Verified 09/12/20 05:57
cats,dogs,perfumes,candles,grass Allergy chest Uncoded 09/12/20 05:57
tightness,asthma
shrubs,trees, Allergy chest Uncoded 09/12/20 05:57
tightness,asthma
Review of Systems:
Constitutional: (x) abNormal _fatigue
Eye: (x) abNormal _blurry vision
Ear/Nose/Throat: (x) Normal _
Respiratory: (x) Normal _
Cardiovascular: (x) Normal _
Gastrointestinal: (x) Anemia.
Genitourinary: (x) Normal _
Musculoskeletal: (x) weakness_
Integumentary: (x) Normal _
Neurologic: (x) cva with difficulty ambulating and doing day-to-day activities, right facial droop
Psychiatric: (x) Normal _
Endocrine: (x) Normal _
Hematologic/Lymphatic: (x)lymphedema
Allergic/Immunologic: (x) Normal _
Medications:
Active Current Visit Medication List
Category Date Time Status
Acetaminophen [Tylenol] Med 11/06/23 13:43 Active
1,000 mg PO Q6HPRN PRN
Amlodipine [Norvasc] Med 11/07/23 08:00 Hold
2.5 mg PO DAILY
Aspirin Low Dose EC [Aspir Low (Enteric Coated)] Med 11/07/23 08:00 Active
81 mg PO DAILY
Atorvastatin [Lipitor] Med 11/06/23 18:00 Active
20 mg PO QPM
Bisacodyl [Dulcolax] Med 11/06/23 13:43 Active
10 mg RECTAL [id number] PRN
Bumetanide [Bumex] Med 11/07/23 08:00 Active
2 mg PO DAILY
CefTRIAXone [Rocephin] Med 11/06/23 22:00 Active
1,000 mg IV Q24H
Clopidogrel Bisulfate [Plavix] Med 11/07/23 08:00 Active
75 mg PO DAILY
Docusate W/Senna [Senokot-S] Med 11/06/23 13:43 Active
1 tablet PO BIDPRN PRN
Flush (0.9% Sodium Chloride) [Flush (Nss)] Med 11/06/23 14:00 Active
See Dose Instructions IV PER PROTOCOL
Fluticasone/Salmeterol 45/21 [Advair Hfa 45/21 Mcg Med 11/06/23 20:00 Active
Inhaler]
2 puff INH R BID
Heparin Med 11/06/23 20:00 Active
5,000 units SC Q12
Methylsalicylate/Menthol [BenGay-Like] Med 11/08/23 14:14 Active
See Dose Instructions TOPICAL TID
Pantoprazole [Protonix] Med 11/08/23 10:55 Active
40 mg PO DAILY
Polyethylene Glycol Powder [Miralax] Med 11/06/23 13:43 Active
17 grams PO DAILYPRN PRN
Potassium Chloride [KCl] Med 11/07/23 08:00 Active
10 meq PO DAILY
Sterile Water [Sterile Water For Injection] Med 11/06/23 22:00 Active
10 ml IV Q24H
Vitals:
Temp Pulse Resp BP Pulse Ox
97.5 F 76 14 109/63 95
11/09/23 07:15 11/09/23 08:17 11/09/23 07:46 11/09/23 08:17 11/09/23 07:46
Height 5 ft 3 in
Actual Weight 92.6 kg
Physical Exam:
General Appearance/Observation: Well-developed, well-nourished individual in no apparent distress. Sitting on edge of bed. Pleasant
Pain/Comfort Assessment: Denies
Mood/Affect: Appropriate
Integumentary/Operative Site:
�� Pressure Ulcer Evaluation: absent over heels.
��
Eyes: Conjunctiva/Lids: Right eye lid does not close all the way��� pupils: pupils equal round and reactive to light
Ears/Nose/Throat: oral mucosa moist,� throat clear.������������ Lips/Teeth/Gums: normal
Neck: No muscle spasm or tenderness
Cardiovascular: Heart: regular, no murmur
Pulses: dorsalis pedis 1+ bilaterally, limited with edema
Respiratory: Respiratory Effort/Chest Expansion: normal ������� Auscultation: Clear to auscultation bilaterally
Gastrointestinal: abdomen not tender, no distension, normal abdominal bowel sounds
Genitourinary: No [place]
Extremities: Edema: Moderate bilateral lymphedema bilaterally Cyanosis: None Trophic changes: None
Neurology Exam:
Orientation: Alert, Oriented to self, Time, Place
Memory: Intact for immediate medical concerns
Repetition: Not tested
Comprehension: Intact
Two step command: Intact
Naming: Intact
Cranial Nerves:
�� CNII: Pupillary light reflex: Intact��� Visual Field: double vision, drooping of the right lower lid, mild impairment on the right
�� CN III, IV, : Extraocular muscles: Intact
�� CN V: Facial Sensation at Forehead: Intact, Maxilla: Intact, Mandible: Intact
�� CN VII: Facial movement: moderate right facial weakness
�� CN VIII: Hearing: [place]
�� CN IX/X: Speech & swallow: dysarthria, no aphasia, normal volume. Position of Uvula: Midline
�� CN XI: Shoulder shrug: mild decreased on right
�� CN XII: Tongue protrusion: Midline
Sensory:
�� Light touch: Intact in bilateral upper and lower extremities, no extinction to double simultaneous stimulation.
��
Reflexes:
�� Biceps: 2 bilaterally
�� Brachioradialis: 2 bilaterally
�� Triceps: 2 bilaterally
�� Patellar: 0 bilaterally
�� Achilles: absent bilaterally
�� Babinski: Down going bilaterally
�� Clonus: None
�� Marianne: Negative bilaterally
Cerebellar: Dysmetria/Ataxia:on right and mild on left
Musculoskeletal: Motor: (Manual muscle scale 0-5)
Muscle SA EF WE EE FF FA HF KE DF EHL PF
Right� 4 4+ 4 4 4 4 4 4 5 4 5
Left 4 5 5 5 4 4 5 5 5 5 5
Tone: Normal in all extremities
Range of Motion: Passively within normal limits in all extremities
Lab Results:
Labs
WBC 2.6 10^3/uL (4.8-10.8) L 11/09/23 08:31
RBC 3.81 10^6/uL (4.20-5.40) L 11/09/23 08:31
Hgb 11.3 g/dL (12.0-16.0) L 11/09/23 08:31
Hct 34.8 % (37.0-47.0) L 11/09/23 08:31
MCV 91.3 fL (81.0-99.0) 11/09/23 08:31
MCH 29.7 pg (27.0-31.0) 11/09/23 08:31
MCHC 32.5 g/dL (33.0-37.0) L 11/09/23 08:31
RDW 16.2 % (11.5-14.5) H 11/09/23 08:31
Plt Count 166 10^3/uL (130-400) D 11/09/23 08:31
Plt Count Comment Yes 11/08/23 07:14
MPV 9.8 fL (7.4-10.4) 11/09/23 08:31
Abs Immat Gran (auto) 0.0 10^3/uL (0-0.05) 11/09/23 08:31
Absolute Neuts (auto) 1.5 10^3/uL (1.4-6.5) 11/09/23 08:31
Absolute Lymphs (auto) 0.4 10^3/uL (1.2-3.4) L 11/09/23 08:31
Absolute Monos (auto) 0.5 10^3/uL (0.1-0.6) 11/09/23 08:31
Absolute Eos (auto) 0.1 10^3/uL (0-0.7) 11/09/23 08:31
Absolute Basos (auto) 0.1 10^3/uL (0-0.2) 11/09/23 08:31
CBC Comment 11/09/23 08:31
Total Counted 100 11/08/23 07:14
Immature Gran % 0.4 % (0-0.5) 11/09/23 08:31
Neutrophils % 58.9 % (42.2-75.2) 11/09/23 08:31
Lymphocytes % 15.4 % (20.5-51.1) L 11/09/23 08:31
Monocytes % 18.8 % (1.7-9.3) H 11/09/23 08:31
Eosinophils % 4.2 % (0-6) 11/09/23 08:31
Basophils % 2.3 % (0-2) H 11/09/23 08:31
Nucleated RBC % 0 % 11/09/23 08:31
Abs Neuts (Manual) 1.5 10^3/uL (1.4-6.5) 11/08/23 07:14
Segmented Neutrophils 50 % (42-75) 11/08/23 07:14
Band Neutrophils 0 % (0-3) 11/08/23 07:14
Lymphocytes (Manual) 35 % (20-51) 11/08/23 07:14
Monocytes (Manual) 10 % (2-9) H 11/08/23 07:14
Eosinophils (Manual) 5 % (0-6) 11/08/23 07:14
Normal RBC Morphology Yes 11/08/23 07:14
Retic Count Cancelled 11/08/23 17:37
PT 15.6 Sec (11.4-14.6) H 11/06/23 09:23
INR 1.26 11/06/23 09:23
APTT 31.9 Sec (23.4-35.0) 11/06/23 09:23
Sodium 139 mmol/L (135-145) 11/09/23 08:31
Potassium 4.0 mmol/L (3.5-5.1) 11/09/23 08:31
Chloride 97 mmol/L (98-107) L 11/09/23 08:31
Carbon Dioxide 27 mmol/L (22-30) 11/09/23 08:31
BUN 15 mg/dl (7-17) 11/09/23 08:31
Creatinine 0.8 mg/dL (0.6-1.0) 11/09/23 08:31
Estimated Creat Clear 60 ml/min 11/09/23 08:31
eGFR > 60.00 11/09/23 08:31
Glucose 118 mg/dl (70-99) H 11/09/23 08:31
Hemoglobin A1c 3.7 % (4.0-5.6) L 11/07/23 08:07
Calcium 9.1 mg/dl (8.4-10.2) 11/09/23 08:31
Magnesium 1.9 mg/dl (1.6-2.3) 11/08/23 07:14
Iron 76 ug/dl (37-170) 11/07/23 08:07
TIBC 308 ug/dl (265-497) 11/07/23 08:07
% Saturation 24 % (20-50) 11/07/23 08:07
Ferritin 579.0 ng/ml (11.1-264.0) H 11/07/23 08:07
Total Bilirubin 2.1 mg/dl (0.2-1.3) H 11/09/23 08:31
Direct Bilirubin 0.5 mg/dl (0.0-0.4) H 11/08/23 07:14
AST 32 U/L (14-36) 11/09/23 08:31
ALT 14 U/L (0-35) 11/09/23 08:31
Alkaline Phosphatase 96 U/L (38-126) 11/09/23 08:31
Lactate Dehydrogenase Cancelled 11/08/23 17:37
Troponin I < 0.012 ng/ml 11/06/23 09:24
Total Protein 6.7 g/dl (6.3-8.2) 11/09/23 08:31
Albumin 3.7 g/dl (3.5-5.0) 11/09/23 08:31
Triglycerides 255 mg/dl (10-149) H 11/07/23 08:07
Total Cholesterol 109 mg/dl (50-199) 11/07/23 08:07
LDL Cholesterol, Calc 48 mg/dl 11/07/23 08:07
VLDL Cholesterol, Calc 51 mg/dl (0-30) H 11/07/23 08:07
HDL Cholesterol 10 mg/dl 11/07/23 08:07
Vitamin B12 394 pg/ml (239-931) 11/07/23 08:07
Folate 4.5 ng/ml (2.76-20) 11/07/23 08:07
TSH (Reflex) 2.56 uIU/ml (0.47-4.68) 11/08/23 17:23
Urine Color Yellow 11/06/23 21:02
Urine Clarity Very cloudy (Clear) 11/06/23 21:02
Urine pH 6.0 (5.0-9.0) 11/06/23 21:02
Ur Specific Graham 1.020 (<1.030) 11/06/23 21:02
Urine Ketones Negative (Negative) 11/06/23 21:02
Ur Occult Blood Reflex 1+ (Negative) A 11/06/23 21:02
Urine Nitrite (Reflex) Positive (Negative) A 11/06/23 21:02
Urine Bilirubin Negative (Negative) 11/06/23 21:02
Urine Urobilinogen 2+ (Neg - 1+) A 11/06/23 21:02
Leukocyte Esterase Rfl 2+ (Negative) A 11/06/23 21:02
Urine RBC 0-2 /HPF (0-2) 11/06/23 21:02
Urine WBC (Reflex) 50-60 /HPF (0-5) A 11/06/23 21:02
Ur Squamous Epith Cells 0-2 /LPF (Few) 11/06/23 21:02
Urine Bacteria (Reflex) Many (Negative) A 11/06/23 21:02
Urine Glucose Negative (Negative) 11/06/23 21:02
Urine Albumin (Reflex) Trace (Neg - Trace) 11/06/23 21:02
POC Glucose 114 mg/dl (70-99) H 11/06/23 20:22
Direct Antiglob Test Negative (Negative) 11/08/23 21:17
JAMES, IgG Specific Negative (Negative) 11/08/23 21:17
JAMES, Complement Neg (Negative) 11/08/23 21:17
�
Diagnostic Results: as per HPI
Assessment 83-year-old R-handed F PMH (hypertension, asthma, and ovarian cancer status post total hysterectomy and chronic lymphedema since right hip replacement) with 11/06/2023 with right sided weakness and facial droop associated with dizziness,
blurred vision, and slurred speech with CVA on MRI with bilateral involvement with multiple territories- She was not given IV tenecteplase nor IAT due to timing of onset of symptoms.
Plan
PT/OT to increase independence with ADLs, improve balance, coordination, endurance, strength, mobility, community reintegration, decreased burden of care on others and family education.
CVA: Bilateral involvement with multiple territories- aspirin, plavix 75mg qd, statin, and blood pressure control (SBP less than 180 and diastolic less than 100 to participate with therapy for ischemic stroke). Continue to monitor neurologic status.
-Patient going for a CAM tomorrow. If no concern for embolic etiology planning for loop recorder. Discussed with patient and sister.
right dominant hemiparesis: High risk for falls and sliding out of chair/bed. Safety reinforced.
- Avoid using affected arm to help lift or pull patient as this will cause trauma to the shoulder.
Double vision: wearing right eye patch or glasses with tape. Hopefully will improve with movement of the right eye. Has open eyes she is not able to close it completely on the right. Added lubricating gel every 4 hours while awake to prevent
ulceration. If needed can tape eyelid shut.
Dysphagia: speech, oral care protocol, aspiration precautions.� Advance to soft and bite sized diet as tolerated.
Dysarthria: speech
HTN: Amlodipine 2.5 mg, Bumex 2 mg daily, monitor closely
HLD: Statin
Bilateral lower extremity/Lymphedema: Consider home compression garments. Can consider bilateral leg pumps if allowable. Would consider getting lower extremity Dopplers bilaterally to rule out DVTs. Increased fluid will cause more force
requirement to move lower extremities which requires more strength and increases fatigue.
Anemia: Likely multifactorial.�Hgb 10. (14 range in 3512-5036). Abdomen U/S-Splenomegaly with a splenic index of 857 (normal range is 120-480). Reticulo count pending. Continue to monitor.
Psych: Psychology consult.� Monitor mood, adjust medications as needed.
Skin: monitor for pressure sores/rashes/lesions.
Pain: acetaminophen as needed.
Bowel: Colace and Senna, PRN bisacodyl.
Bladder: Time void, PVRs, PRN straight cath.
GI Prophylaxis: Pantoprazole 40mg- recommended by GI. Patient with h/o occasional use of NSAIds
DVT Prophylaxis: mechanical and Heparin 5000mg SC q 12
Pulmonary: Incentive spirometry
Obesity: Continue to sexual assault counselor patient about diet adjustments to control obesity. Body habitus and increased force to move body and extremities causes further difficulty with functional tasks.
Safety: Continue to reinforce assistance with all transfers.
Code Status:� Full code
Dispo (date/plan/equipment needs): Home with family care.� Social history reviewed.
Functional and Medical Goals: Modified Independent with ADL�s, ambulation, transfers
Discharge Destination: Acute inpatient rehabilitation once medically stable and cleared and all pending studies have been completed
-A total of 60 minutes were spent with the patient preparing for the evaluation, obtaining history, performing examination and evaluation, counseling, data review, case management, care coordination, order selector, and EMR documentation.
Summary of recommendations: Patient with CVA associated with right sided weakness would benefit from acute inpatient rehabilitation for PT/OT to increase independence with ADLs, improve balance, coordination, endurance, strength, mobility, community
reintegration, decreased burden of care on others and family education.
CVA: Bilateral involvement with multiple territories- aspirin, Plavix 75mg qd, statin, and blood pressure control (SBP less than 180 and diastolic less than 100 to participate with therapy for ischemic stroke). Continue to monitor neurologic status.
Has mobile manager
right dominant hemiparesis: PT/OT. Safety reinforced.
Double vision: wearing right eye patch. May benefit from ophthalmology evaluation-if no improvement
Dysphagia: speech, oral care protocol, aspiration precautions.� Advance soft and bite sized diet as tolerated.
Dysarthria: speech
HTN: continue medications, monitor closely
Bilateral lower extremity/Lymphedema: Consider home compression garments. Can consider bilateral leg pumps if allowable. Would consider getting lower extremity Dopplers bilaterally to rule out DVTs.
Bowel: Colace and Senna, PRN bisacodyl.
Bladder: Time void, PVRs, PRN straight cath.
GI Prophylaxis: Pantoprazole 40mg- recommended by GI. Patient with h/o occasional use of NSAIds
DVT Prophylaxis: mechanical and Heparin 5000mg SC q 12
Thank you for allowing me to care for your patient. Please contact me with any questions or concerns.
Attending Statement:
I saw and examined the patient today. Reviewed care plan with patient, therapy, nursing, and physician department assistant. I agree with the above subjective and physical exam, and plan as documented by TK Garcia with adjustments made as necessary.
--- NOTE | 2023-11-09 09:05 | PN.CDI ---
CDI
- -
CDI:
Physician Documentation Request
Admit Date: 11/06/23 12:39
Dear Doctor Cassie,
Patient admitted with acute CVA.
11/05 UA with many bacteria and positive nitrites.
11/05 Urine culture with Escherichia coli.
Patient receiving IV Rocephin for genito-urinary tract.
Please provide in your note the diagnosis associated with the above findings:
Escherichia coli UTI
Insignificant abnormal lab findings
Other
Use of terms such as suspected, likely, concern for, or probable (associated with a specific diagnosis that is being evaluated, monitored, or treated as if it exists) are acceptable and can be coded in the inpatient setting, when documented at the
time of discharge.
Thank you,
Jessica ELDER,RN,CCDS
CDI Specialist
Available via tiger text
Please use your independent medical judgment in providing your response.
--- NOTE | 2023-11-09 09:20 | W.PN.CD ---
Addendum entered and electronically signed by Mickey Fleming MD 11/09/23 13:03:
I saw and examined the patient.
The [employer] SALES SUPERVISOR's note was reviewed and I agree with the note.
Comment: Unremarkable echo today.
CAM Tomorrow
Original Note:
Today's Communication / Plan
-
Echocardiogram today
Impression / Plan
-
BACKGROUND: 83F with hypertension with asthma, hypertension, and ovarian cancer status post total hysterectomy and chronic lymphedema who presented to the emergency department 11/06/2023 with right sided weakness and facial droop. She had associated
dizziness, blurred vision, and slurred speech. She was found to have a CVA.
CVA
-MRI with acute to subacute infarction with multiple foci, majority involving cerebellum, middle cerebellar peduncles, as well as involvement of right lateral cindy
-On DAPT (aspirin 81 mg and clopidogrel 75 mg)
-Her LDL is 48 and HgbA1c 3.7%
-Echocardiogram today
-CAM requested by Neurology, she does have some dysphagia and is on a soft diet (new with CVA)
-If thrombus is not diagnosed and telemetry does not show atrial fibrillation, consider ILR
PVCs, some aberrancy, asymptomatic
Hypertension, BP stable, amlodipine on hold for hypotension
Hypertriglyceridemia, triglycerides 255
RBBB
Lymphedema, on bumetanide as an outpatient
Splenomegaly, per primary
Physical Exam
Vital Signs/Labs
Vital Signs
Temp Pulse Resp BP Pulse Ox
97.5 F 76 14 109/63 95
11/09/23 07:15 11/09/23 08:17 11/09/23 07:46 11/09/23 08:17 11/09/23 07:46
PT 15.6 Sec (11.4-14.6) H 11/06/23 09:23
INR 1.26 11/06/23 09:23
APTT 31.9 Sec (23.4-35.0) 11/06/23 09:23
Magnesium 1.9 mg/dl (1.6-2.3) 11/08/23 07:14
Triglycerides 255 mg/dl (10-149) H 11/07/23 08:07
LDL Cholesterol, Calc 48 mg/dl 11/07/23 08:07
VLDL Cholesterol, Calc 51 mg/dl (0-30) H 11/07/23 08:07
HDL Cholesterol 10 mg/dl 11/07/23 08:07
LAB Results
11/06/23
09:24
Troponin I < 0.012
Physical Exam
Constitutional: No acute distress and Comfortable
EENT: Anicteric and Moist mucous membranes
Cardiovascular: Rhythm/rate is irregular (frequent PVCs), Pedal edema present (chronic lymphedema), S1S2 is normal and Murmur/rub/gallop absent
Respiratory: Respiratory effort normal and Lungs clear to auscul.
GI: Soft, Distention absent, Flat, Non tender and Normal bowel sounds
Neuro/Psych: AO x 3 and Other (right side facial droop, slurred speech)
Other: Skin (warm and dry)
Data Reviewed
-
Date of Service: November 09, 2023
Labs: Labs Reviewed by me
[2023-11-09 09:21] LABS: % Basophils 2.3 % (0-2); % Eosinophils 4.2 % (0-6); % Immature Granulocytes 0.4 % (0-0.5); % Lymphocytes 15.4 % (20.5-51.1); % Monocytes 18.8 % (1.7-9.3); % Neutrophils 58.9 % (42.2-75.2); Absolute Basophils 0.1 10^3/uL (0-0.2); Absolute Eosinophils 0.1 10^3/uL (0-0.7); Absolute Lymphocytes 0.4 10^3/uL (1.2-3.4); Absolute Monocytes 0.5 10^3/uL (0.1-0.6); Absolute Neutrophils 1.5 10^3/uL (1.4-6.5); Hematocrit 34.8 % (37.0-47.0); Hemoglobin 11.3 g/dL (12.0-16.0); Mean Corp Hgb Conc. 32.5 g/dL (33.0-37.0); Mean Corpuscular Hgb 29.7 pg (27.0-31.0); Mean Corpuscular Volume 91.3 fL (81.0-99.0); Mean Platelet Volume 9.8 fL (7.4-10.4); Nucleated Red Blood Cells % 0 %; Platelet Count 166 10^3/uL (130-400); Red Blood Cell Count 3.81 10^6/uL (4.20-5.40); Red Cell Dist. Width 16.2 % (11.5-14.5); White Blood Cell Count 2.6 10^3/uL (4.8-10.8)
[2023-11-09 09:55] LABS: ALT (SGPT) 14 U/L (0-35); AST (SGOT) 32 U/L (14-36); Albumin 3.7 g/dl (3.5-5.0); Alkaline Phosphatase 96 U/L (38-126); Blood Urea Nitrogen 15 mg/dl (7-17); Calcium 9.1 mg/dl (8.4-10.2); Carbon Dioxide 27 mmol/L (22-30); Chloride 97 mmol/L (98-107); Estimated Creatinine Clearance 60 ml/min; Glucose 118 mg/dl (70-99); Sodium 139 mmol/L (135-145); Total Bilirubin 2.1 mg/dl (0.2-1.3); Total Protein 6.7 g/dl (6.3-8.2); eGFR > 60.00
--- NOTE | 2023-11-09 09:55 | CON.ONC ---
Impression
Impression
acute stroke, with weakness, facial droop, double vision
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
monocytosis
remote h/o stage 1 ovary cancer, treated w/ only surgery (2011)
UTI
Plan
Plan
The etiology of Iza negative hemolysis w/ splenomegaly is broad and includes infectious etiologies (EBV, babesia, erlichia), thalassemia, autoimmune lymphoproliferative disorders, antiphospholipid syndrome, among others. Splenomegaly and
monocytosis could also suggest CMML, though hemolysis is usually not seen in CMML.
Thankfully, her anemia is mild, no treatment is needed at this time. Will initiate inpatient work-up with lab studies, and plan for outpatient heme f/u after rehab stay.
Patient History
History of Present Illness
Hematology was consulted for evaluation of anemia, with concern for hemolysis, and splenomegaly.
This is an 83 yo F who presented to ER on 11/05 w/ 12+hr h/o facial droop, double vision, and weakness. (She'd had vertigo on 09/24/23, presented to ER and head CT was negative.) In the ER this admission, head CT was negative, but MRI showed multiple
foci of acute to subacute infarction, mostly involving the cerebellum, middle cerebellar peduncles and right lateral cindy. She's been started on ASA and Plavix. Neuro and cardiology w/u underway.
CBC at admission was noted for hgb of 10.6, MCV ~90, WBC of 3.0 with relative monocytosis (20%) and lymphopenia (11%). Platelet count was 149. Retic count slightly elevated at 4.3, LDH is high at 377, haptoglobin is pending. Tbili was 2.6 at
admission, 2.1 today, mostly indirect. No deficiency of iron, B12, folate. HgbA1C is inappropriately low (3.7). Direct Iza is negative.
She denies any recent illnesses, infections, fevers. No bleeding.
UA/culture c/w E coli UTI. She's getting Rocephin.
Abd US showed splenomegaly at 15.3cm. Liver is normal.
Past-Medical/Surgical History
PMH - ovarian cancer, stage 1, treated surgically in 2011, no chemo (Dr. Sellers still sees her yearly). Asthma, chronic lymphedema (uses lymphedema pump at home).
SH - single, non-smoker, no alcohol, POA is friend Mini Rojas (at bedside)
FH - non contributory
Patient Medication
�Medication �Instructions �Recorded �Confirmed �Last Taken �Type
fluticasone propionate 50 1 spray intranasal DAILY 03/06/17 11/06/23 11/05/23 History
mcg/actuation nasal Lung/breathing issues
spray,suspension
amlodipine 2.5 mg tablet 2.5 mg PO DAILY ##30 09/13/20 11/06/23 11/05/23 Rx
bumetanide 2 mg tablet 2 mg PO DAILY Fluid 09/13/20 11/06/23 11/05/23 Rx
retention/Swelling ##0
acetaminophen 500 mg tablet 1,000 mg PO Q6HPRN PRN mild 11/06/23 11/06/23 Unknown History
(Tylenol Extra Strength) pain/fever
fluticasone 100 mcg-salmeterol 50 1 inh inhalation R BID 11/06/23 11/06/23 11/05/23 History
mcg/dose blistr powdr for Lung/Breathing Issues
inhalation (Wixela Inhub)
potassium chloride 10 mEq 10 meq PO DAILY Electrolyte 11/06/23 11/06/23 11/05/23 History
tablet,extended release Repletion
Active Medications
Generic Name Dose Route Start Last Admin
Trade Name Freq PRN Reason Stop Dose Admin
Acetaminophen 1,000 mg 11/06/23 13:43 11/08/23 14:22
Acetaminophen 500 Mg Tablet PO 12/04/23 13:42 1,000 mg
Q6HPRN PRN Administration
mild pain/fever >100.4F
Amlodipine Besylate 2.5 mg 11/07/23 08:00
Amlodipine 2.5 Mg Tablet PO 12/05/23 07:59
DAILY VIRAL
Aspirin 81 mg 11/07/23 08:00 11/09/23 08:18
Aspirin 81 Mg (Enteric Coated) Tablet PO 12/05/23 07:59 81 mg
DAILY VIRAL Administration
Atorvastatin Calcium 20 mg 11/06/23 18:00 11/08/23 17:48
Atorvastatin (Lipitor) 20 Mg Tablet PO 12/04/23 17:59 20 mg
QPM VIRAL Administration
Bisacodyl 10 mg 11/06/23 13:43
Bisacodyl 10 Mg Rectal Suppository RECTAL 12/04/23 13:42
[id number] PRN
constipation
Bumetanide 2 mg 11/07/23 08:00 11/09/23 08:17
Bumetanide 2 Mg Tablet PO 12/05/23 07:59 2 mg
DAILY VIRAL Administration
Ceftriaxone Sodium 1,000 mg 11/06/23 22:00 11/08/23 20:59
Ceftriaxone 1000 Mg / 10 Ml Vial IV 1,000 mg
Q24H VIRAL Administration
Clopidogrel Bisulfate 75 mg 11/07/23 08:00 11/09/23 08:18
Clopidogrel 75 Mg Tablet PO 12/05/23 07:59 75 mg
DAILY VIRAL Administration
Heparin Sodium 5,000 units 11/06/23 20:00 11/09/23 08:18
Heparin 5,000 Units/Ml 1 Ml Vial SC 12/04/23 19:59 5,000 units
Q12 VIRAL Administration
Menthol/Methyl Salicylate 0 applic 11/08/23 14:14 11/09/23 08:20
Bengay-Like Cream TOPICAL 12/06/23 14:13 1 applic
TID VIRAL Administration
Pantoprazole Sodium 40 mg 11/08/23 10:55 11/09/23 08:17
Pantoprazole 40 Mg Delayed Release Tablet PO 12/06/23 10:54 40 mg
DAILY VIRAL Administration
Polyethylene Glycol 17 grams 11/06/23 13:43
Polyethylene Glycol Powder 17 Grams Packet PO 12/04/23 13:42
DAILYPRN PRN
constipation
Potassium Chloride 10 meq 11/07/23 08:00 11/09/23 08:17
Potassium Chloride 10 Meq Extended Release Tablet PO 12/05/23 07:59 10 meq
DAILY VIRAL Administration
Fluticasone/Salmeterol 2 puff 11/06/23 20:00 11/09/23 07:42
Advair Hfa 45/ Inhaler INH 12/04/23 19:59 2 puff
R BID VIRAL Administration
Senna/Docusate Sodium 1 tablet 11/06/23 13:43
Docusate W/Senna (Nadira-Colace) Tablet PO 12/04/23 13:42
BIDPRN PRN
constipation
Sodium Chloride 0 flush 11/06/23 14:00
Sodium Chloride 0.9% (Flush) Syringe IV 12/04/23 13:59
PER PROTOCOL VIRAL
Sterile Water 10 ml 11/06/23 22:00 11/08/23 21:00
Sterile Water For Injection 10 Ml Vial IV 12/04/23 21:59 10 ml
Q24H VIRAL Administration
Review of Systems
-
All Other Systems: Reviewed and Negative
Physical Exam
-
General: Well Developed, Well Nourished, No Apparent Distress and Conversant
HEENT: Other (left eye is patched, facial droop)
Cardiology: Normal Sinus Rhythm, S1 and S2
Pulmonary: Clear
GI: Soft and Normal Bowel Sounds
Extremities: Edema (chronic brawny edema to legs)
Neurology: Other (facial droop)
Skin: Warm and Dry; Negative No Ecchymosis
Hematologic / Lymphatic: No Lymphadenopathy
Psych: Calm and Intact Judgement/Insight
Labs
Lab Results
WBC 2.6 10^3/uL (4.8-10.8) L 11/09/23 08:
RBC 3.81 10^6/uL (4.20-5.40) L 11/09/23 08:
Hgb 11.3 g/dL (12.0-16.0) L 11/09/23 08:
Hct 34.8 % (37.0-47.0) L 11/09/23 08:
MCV 91.3 fL (81.0-99.0) 11/09/23 08:
MCH 29.7 pg (27.0-31.0) 11/09/23 08:
MCHC 32.5 g/dL (33.0-37.0) L 11/09/23 08:
RDW 16.2 % (11.5-14.5) H 11/09/23 08:
Plt Count 166 10^3/uL (130-400) D 11/09/23 08:
MPV 9.8 fL (7.4-10.4) 11/09/23 08:
Abs Immat Gran (auto) 0.0 10^3/uL (0-0.05) 11/09/23 08:
Absolute Neuts (auto) 1.5 10^3/uL (1.4-6.5) 11/09/23 08:
Absolute Lymphs (auto) 0.4 10^3/uL (1.2-3.4) L 11/09/23 08:
Absolute Monos (auto) 0.5 10^3/uL (0.1-0.6) 11/09/23 08:
Absolute Eos (auto) 0.1 10^3/uL (0-0.7) 11/09/23 08:
Absolute Basos (auto) 0.1 10^3/uL (0-0.2) 11/09/23 08:
Immature Gran % 0.4 % (0-0.5) 11/09/23 08:
Neutrophils % 58.9 % (42.2-75.2) 11/09/23 08:31
Lymphocytes % 15.4 % (20.5-51.1) L 11/09/23 08:31
Monocytes % 18.8 % (1.7-9.3) H 11/09/23 08:31
Eosinophils % 4.2 % (0-6) 11/09/23 08:31
Basophils % 2.3 % (0-2) H 11/09/23 08:31
Creatinine 0.6 mg/dL (0.6-1.0) 11/08/23 07:14
Vital Signs
Vital Signs
Temp Pulse Resp BP Pulse Ox
97.5 F 76 14 109/63 95
11/09/23 07:15 11/09/23 08:17 11/09/23 07:46 11/09/23 08:17 11/09/23 07:46
--- NOTE | 2023-11-09 15:09 | W.PN.HOSP.TC ---
Today's Communication/Plan
-
CAM tomorrow as per cardiology
Patient is doing much better today
Assessment / Plan
Assessment / Plan
Physical Exam
General: Not in acute distress
HEENT: Normocephalic
Respiratory: Clear to Auscultation Bilaterally
Cardiac: Regular Rhythm and S1/S2
GI: Soft, Nontender and Nondistended. Positive bowel sounds.
Musculoskeletal: No Cyanosis and No Edema
Neuro: Awake, Alert, Oriented and Other (rt sided facial droop, rt lower extremity weakness - IMPROVED, rt UE with 4/5 strength)
Assessment/Plan
Acute CVA with presentation of right-sided weakness
neuro felt that symptoms started on 11/04 and thus not a candidate for thrombolysis
MRI (as per radiologist's report): Multiple foci of acute to subacute infarction, as described. The majority of these foci involving the cerebellum, middle cerebellar peduncles, as well as involvement of the r
right lateral cindy. Mild to moderate diffuse atrophy. No evidence for mass involving the internal auditory canals. No evidence for cerebellopontine angle mass.
-Cardiology onboard, appreciate their evaluation and recommendations
-TTE unremarkable, so CAM tomorrow
Anemia
Splenomegaly
as per POA in process of being worked up. She has been scheduled to have an abd US and has been referred to Dr. Sutton. Abdominal ultrasound completed inpatient with result of splenomegaly.
Fe sat 24%, Ferritin pending
-As per GI, no plans to pursue an EGD or Colonoscopy given patient's recent CVA, and recommendation is to defer any hemeoccult testing as this will not changeover operator. Would only consider an EGD if patient were to have significant GI bleeding
while inpatient given her recent CVA and generally Neurology likes to wait for at least 6 months before even considering procedures in these types of patients.
-Per GI: once daily PPI given patient's DAPT and prior NSAID history
-Consulted hematology, appreciate their evaluation and recommendations: patient's anemia is mild, no treatment is needed at this time. 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
follow-up after rehab stay
Concern for Escherichia coli UTI
-Ceftriaxone switched to Cefdinir to complete 5 day course
s/p bilateral TKR, Right hip replacement
History of ovarian cancer
History of asthma
P:admit to tele
Plavix/ASA
Full Code
Anticipated Discharge: Within 24 hours
Subjective/Interval History
-
Date of Service: November 09, 2023
Patient was seen and examined. She reported feeling better and stronger today.
Objective Data
-
Labs:
Laboratory Results
11/09/23
08:31
WBC 2.6 L
Hgb 11.3 L
Hct 34.8 L
Plt Count 166 D
Sodium 139
Potassium 4.0
Chloride 97 L
Carbon Dioxide 27
BUN 15
Creatinine 0.8
Glucose 118 H
Calcium 9.1
Total Bilirubin 2.1 H
AST 32
ALT 14
Alkaline Phosphatase 96
Vital Signs:
Vital Signs
Temp Pulse Resp BP Pulse Ox
98 F 102 18 126/69 98
11/09/23 12:01 11/09/23 12:01 11/09/23 12:01 11/09/23 12:01 11/09/23 12:01
I&O
11/08/23 11/09/23 11/10/23
06:59 06:59 06:59
Intake Total 1860 / 1860 840 / 840
Output Total 2099 / 2099 3250 / 3250
Balance -240 / -240 -2410 / -2410
[2023-11-09] MEDS: LIPITOR 20 MG PO (17:18)
--- NOTE | 2023-11-09 18:01 | W.PN.NEURO.1 ---
Today's Communication / Plan
-
.
Neuro Assessment/Plan
Assessment
83 yr. old lady with h/o HTN who had new vertigo double vision slurred speech with right facial weakness and right sided weakness involving the right arm and leg that has improved with residual facial weakness and double vision and low BP
Plan
Continue Aspirin 81 mg daily
Continue Plavix 75 mg daily
Statin therapy
PT/OT
Speech therapy
Inpatient Rehab
Subjective/Objective
Subjective Data
Date of Service: November 09, 2023
Neurology follow-up note
Mr. Garcia reports no new neurological deficits over the last 24 hours. She continues to have diplopia and right corneal irritability.
Transesophageal echo is pending. No reports of headaches
PMH: ovarian CA, L thyroid nodule; DLP, HTM, asthma, OA, lymphedema, BL SNHL
PSH: Bilateral cataract surgery, R DAYAN, BL TKA, BL TKA, BETTY with BL oophorectomy
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
FH: Not contributory to current presentation
All:ACEIs
ROS:Constitutional: Negative. Negative for chills, fever and unexpected weight change.
HENT: Positive for chronic hearing impairment, right
Eyes: Positive for diplopia
Respiratory: Positive for dyspnea on exertion..
Cardiovascular: Positive for chronic positive for chronic left edema
Gastrointestinal: Negative for abdominal pain and vomiting.
Endocrine: Negative. Negative for cold intolerance.
Musculoskeletal: Positive for gait problem neck stiffness
Skin: Negative for rash.
Allergic/Immunologic: Negative. Negative for immunocompromised state.
Neurological: Positive for imbalance
Psychiatric/Behavioral: Negative for behavioral problems, confusion and hallucinations.
General: Well developed. In no acute distress.
Cardio: Regular rate and rhythm without murmur. Extremities are without cyanosis or edema.
Neuro:
Mental Status: Alert, oriented to person, place, and date. Increased processing time. Follows simple requests consistently. Nonfluent. No hemineglect
Cranial Nerves: Pupils are equally round and reactive to light. EOMs full except for R abduction palsy. Visual andrea full to confrontation. No ptosis. Nonsustained nystagmus on the left lateral gaze. V1-V3 intact to light touch and pinprick
bilaterally, symmetric. R LMN CN VII palsy. Poor hearing AU. The palate elevated well. SCMs and traps 5/5. Tongue midline. Mild dysarthria.
Motor: Normal bulk and tone. No pronator or arm drift. Strength 5/5 throughout except for minimal right arm proximal weakness and proximal leg weakness. No clonus.
Coordination: No dysmetria or tremor.
Gait: deferred
Assessment and Plan:
I. Acute/subacute bihemispheric strokes. Likely etiology�cardioembolic
II. 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
-Continue Telemetry monitoring.
-Fall and aspiration precautions.
-Continue eye patch and ocular lubricants
-CAM
- Continue ASA 81 mg QD indefinitely.
-Plavix 75 mg QD for 21 days.
-Please check TFTs
-LDL is at the goal
-Loop recorder if no events of Telemetry and normal CAM.
-PT.
-DVT prophylaxis.
-Case was discussed with patient's family. All questions were answered
I personally reviewed all radiology and labs along with past medical records pertinent to current medical problems. Total time spent in patient care is 35 minutes.
Thank you for allowing us to participate in the care of this patient. We will continue to follow. Please do not hesitate to contact us with any questions or concerns.
Objective Data
Vital Signs
Temp Pulse Resp BP Pulse Ox
36.5 C 103 18 124/52 99
11/09/23 15:12 11/09/23 15:12 11/09/23 15:12 11/09/23 15:12 11/09/23 15:12
Lab Results
11/09/23 08:31
11/09/23 08:31
PT 15.6 Sec (11.4-14.6) H 11/06/23 09:23
INR 1.26 11/06/23 09:23
APTT 31.9 Sec (23.4-35.0) 11/06/23 09:23
Sodium 139 mmol/L (135-145) 11/09/23 08:31
Potassium 4.0 mmol/L (3.5-5.1) 11/09/23 08:31
BUN 15 mg/dl (7-17) 11/09/23 08:31
Glucose 118 mg/dl (70-99) H 11/09/23 08:31
Calcium 9.1 mg/dl (8.4-10.2) 11/09/23 08:31
LDL Cholesterol, Calc 48 mg/dl 11/07/23 08:07
Vitamin B12 394 pg/ml (239-931) 11/07/23 08:07
Patient Allergies
adhesive Allergy (Verified 09/12/20 05:57)
Plastic bandaids cause itching
lisinopril Allergy (Verified 09/12/20 05:57)
angioedema
cats,dogs,perfumes,candles,grass Allergy (Uncoded 09/12/20 05:57)
chest tightness,asthma
shrubs,trees, Allergy (Uncoded 09/12/20 05:57)
chest tightness,asthma
Vital Signs and Labs
-
Vital Signs and Labs:
Vital Signs
Temp Pulse Resp BP Pulse Ox
36.5 C 103 18 124/52 99
11/09/23 15:12 11/09/23 15:12 11/09/23 15:12 11/09/23 15:12 11/09/23 15:12
Lab Results
11/09/23 08:31
11/09/23 08:31
PT 15.6 Sec (11.4-14.6) H 11/06/23 09:23
INR 1.26 11/06/23 09:23
APTT 31.9 Sec (23.4-35.0) 11/06/23 09:23
Sodium 139 mmol/L (135-145) 11/09/23 08:31
Potassium 4.0 mmol/L (3.5-5.1) 11/09/23 08:31
BUN 15 mg/dl (7-17) 11/09/23 08:31
Glucose 118 mg/dl (70-99) H 11/09/23 08:31
Calcium 9.1 mg/dl (8.4-10.2) 11/09/23 08:31
LDL Cholesterol, Calc 48 mg/dl 11/07/23 08:07
Vitamin B12 394 pg/ml (239-931) 11/07/23 08:07
Medications
-
Medications:
Generic Name Dose Route Start Last Admin
Trade Name Freq PRN Reason Stop Dose Admin
Acetaminophen 1,000 mg 11/06/23 13:43 11/08/23 14:22
Acetaminophen 500 Mg Tablet PO 12/04/23 13:42 1,000 mg
Q6HPRN PRN Administration
mild pain/fever >100.4F
Amlodipine Besylate 2.5 mg 11/07/23 08:00
Amlodipine 2.5 Mg Tablet PO 12/05/23 07:59
DAILY VIRAL
Aspirin 81 mg 11/07/23 08:00 11/09/23 08:18
Aspirin 81 Mg (Enteric Coated) Tablet PO 12/05/23 07:59 81 mg
DAILY VIRAL Administration
Atorvastatin Calcium 20 mg 11/06/23 18:00 11/09/23 17:18
Atorvastatin (Lipitor) 20 Mg Tablet PO 12/04/23 17:59 20 mg
QPM VIRAL Administration
Bisacodyl 10 mg 11/06/23 13:43
Bisacodyl 10 Mg Rectal Suppository RECTAL 12/04/23 13:42
[id number] PRN
constipation
Bumetanide 2 mg 11/07/23 08:00 11/09/23 08:17
Bumetanide 2 Mg Tablet PO 12/05/23 07:59 2 mg
DAILY VIRAL Administration
Carboxymethylcellulose Sodium 1 drops 11/09/23 20:00
Carboxymethylcellulose Ophth Gel (Celluvisc) Droperette OPHTH 12/07/23 19:59
Q4HWA VIRAL
Cefdinir 300 mg 11/09/23 20:00
Cefdinir 300 Mg Capsule PO
Q12 VIRAL
Clopidogrel Bisulfate 75 mg 11/07/23 08:00 11/09/23 08:18
Clopidogrel 75 Mg Tablet PO 12/05/23 07:59 75 mg
DAILY VIRAL Administration
Heparin Sodium 5,000 units 11/06/23 20:00 11/09/23 08:18
Heparin 5,000 Units/Ml 1 Ml Vial SC 12/04/23 19:59 5,000 units
Q12 VIRAL Administration
Menthol/Methyl Salicylate 0 applic 11/08/23 14:14 11/09/23 17:15
Bengay-Like Cream TOPICAL 12/06/23 14:13 1 applic
TID VIRAL Administration
Pantoprazole Sodium 40 mg 11/08/23 10:55 11/09/23 08:17
Pantoprazole 40 Mg Delayed Release Tablet PO 12/06/23 10:54 40 mg
DAILY VIRAL Administration
Polyethylene Glycol 17 grams 11/06/23 13:43
Polyethylene Glycol Powder 17 Grams Packet PO 12/04/23 13:42
DAILYPRN PRN
constipation
Potassium Chloride 10 meq 11/07/23 08:00 11/09/23 08:17
Potassium Chloride 10 Meq Extended Release Tablet PO 12/05/23 07:59 10 meq
DAILY VIRAL Administration
Fluticasone/Salmeterol 2 puff 11/06/23 20:00 11/09/23 07:42
Advair Hfa Inhaler INH 12/04/23 19:59 2 puff
R BID VIRAL Administration
Senna/Docusate Sodium 1 tablet 11/06/23 13:43
Docusate W/Senna (Nadira-Colace) Tablet PO 12/04/23 13:42
BIDPRN PRN
constipation
Sodium Chloride 0 flush 11/06/23 14:00
Sodium Chloride 0.9% (Flush) Syringe IV 12/04/23 13:59
PER PROTOCOL VIRAL
Home Medications
-
Home Medications
fluticasone propionate 50 mcg/actuation nasal spray,suspension 1 spray intranasal DAILY Lung/breathing issues 03/06/17
amlodipine 2.5 mg tablet 2.5 mg PO DAILY ##30 09/13/20
bumetanide 2 mg tablet 2 mg PO DAILY Fluid retention/Swelling ##0 09/13/20
acetaminophen 500 mg tablet (Tylenol Extra Strength) 1,000 mg PO Q6HPRN PRN mild pain/fever 11/06/23
fluticasone 100 mcg-salmeterol 50 mcg/dose blistr powdr for inhalation (Brent Inhub) 1 inh inhalation R BID Lung/Breathing Issues 11/06/23
potassium chloride 10 mEq tablet,extended release 10 meq PO DAILY Electrolyte Repletion 11/06/23
[2023-11-09] MEDS: OMNICEF 300 MG PO (20:05)
[2023-11-09] MEDS: REFRESH CELLUVISC GEL 1 DROPS OPHTH (20:05)
[2023-11-10] MEDS: REFRESH CELLUVISC GEL OPHTH ×2 (00:06→05:37)
[2023-11-10 03:22] VITALS: BP 113/60
[2023-11-10] MEDS: REFRESH CELLUVISC GEL 1 DROPS OPHTH ×4 (05:00→16:20)
[2023-11-10 06:00] VITALS: BMI 32.9
[2023-11-10 07:20] VITALS: BP 117/53
[2023-11-10] MEDS: ADVAIR HFA 45/21 MCG INHALER INH (08:12)
[2023-11-10] MEDS: HEPARIN 5000 UNITS SC (08:28)
[2023-11-10] MEDS: PLAVIX 75 MG PO (08:28)
[2023-11-10] MEDS: OMNICEF 300 MG PO (08:29)
[2023-11-10] MEDS: PROTONIX 40 MG PO (08:29)
[2023-11-10] MEDS: KCL 10 MEQ PO (08:29)
[2023-11-10] MEDS: BUMEX 2 MG PO (08:30)
[2023-11-10] MEDS: ASPIR LOW (ENTERIC COATED) 81 MG PO (08:30)
[2023-11-10] MEDS: BenGay-Like 1 APPLIC TOPICAL ×2 (08:32→16:20)
--- NOTE | 2023-11-10 08:48 | W.PN.NEURO.1 ---
Today's Communication / Plan
-
.
Neuro Assessment/Plan
Assessment
83 yr. old lady with h/o HTN who had new vertigo double vision slurred speech with right facial weakness and right sided weakness involving the right arm and leg that has improved with residual facial weakness and double vision and low BP
Plan
Continue Aspirin 81 mg daily
Continue Plavix 75 mg daily
Statin therapy
PT/OT
Speech therapy
Inpatient Rehab
Subjective/Objective
Subjective Data
Date of Service: November 10, 2023
Neurology follow-up note
Mr. Garcia reports no new neurological deficits over the last 24 hours.
Transesophageal echo is scheduled for this morning. No reports of headaches.
TSH-normal.
PMH: ovarian CA, L thyroid nodule; DLP, HTM, asthma, OA, lymphedema, BL SNHL
PSH: Bilateral cataract surgery, R DAYAN, BL TKA, BL TKA, BETTY with BL oophorectomy
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
FH: Not contributory to current presentation
All:ACEIs
ROS:Constitutional: Negative. Negative for chills, fever and unexpected weight change.
HENT: Positive for chronic hearing impairment, right
Eyes: Positive for diplopia
Respiratory: Positive for dyspnea on exertion.
Cardiovascular: Positive for chronic positive for chronic left edema
Gastrointestinal: Negative for abdominal pain and vomiting.
Endocrine: Negative. Negative for cold intolerance.
Musculoskeletal: Positive for gait problem neck stiffness
Skin: Negative for rash.
Allergic/Immunologic: Negative. Negative for immunocompromised state.
Neurological: Positive for imbalance, chronic R leg weakness, R face weakness, blurred vision
Psychiatric/Behavioral: Negative for behavioral problems, confusion and hallucinations.
General: Well developed. In no acute distress.
Cardio: Regular rate and rhythm without murmur. Extremities are without cyanosis or edema.
Neuro:
Mental Status: Alert, oriented to person, place, and date. Increased processing time. Follows simple requests consistently. Nonfluent. No hemineglect
Cranial Nerves: Pupils are equally round and reactive to light. EOMs full except for R abduction palsy. Visual andrea full to confrontation. No ptosis. Nonsustained nystagmus on the left lateral gaze. V1-V3 intact to light touch and pinprick
bilaterally, symmetric. R LMN CN VII palsy. Poor hearing AU. The palate elevated well. SCMs and traps 5/5. Tongue midline. Mild dysarthria.
Motor: Normal bulk and tone. No pronator or arm drift. Strength 5/5 throughout except for minimal right arm proximal weakness and proximal leg weakness. No clonus.
Coordination: No dysmetria or tremor.
Gait: deferred
Assessment and Plan:
I. Acute/subacute bihemispheric strokes. Likely etiology�cardioembolic
II. Right severe LMN CN VII and mild R CN palsies from the R pontine infarct
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
-Continue Telemetry monitoring.
-Fall and aspiration precautions.
-Continue eye patch and ocular lubricants
-Continue ASA 81 mg QD indefinitely.
-Plavix 75 mg QD for 21 days.
-LDL is at the goal
-Loop recorder if no events of Telemetry and normal CAM.
-PT.
-DVT prophylaxis
-OP neuroophthalmology consult
-OP neurology follow up in 1-2 weeks
I personally reviewed all radiology and labs along with past medical records pertinent to current medical problems. Total time spent in patient care is 35 minutes.
Thank you for allowing us to participate in the care of this patient. We will continue to follow. Please do not hesitate to contact us with any questions or concerns.
Objective Data
Vital Signs
Temp Pulse Resp BP Pulse Ox
36.6 C 79 18 117/53 97
11/10/23 07:20 09/25/24 07:20 11/10/23 07:20 11/10/23 07:20 11/10/23 07:20
Lab Results
11/09/23 08:31
11/09/23 08:31
PT 15.6 Sec (11.4-14.6) H 11/06/23 09:23
INR 1.26 11/06/23 09:23
APTT 31.9 Sec (23.4-35.0) 11/06/23 09:23
Sodium 139 mmol/L (135-145) 11/09/23 08:31
Potassium 4.0 mmol/L (3.5-5.1) 11/09/23 08:31
BUN 15 mg/dl (7-17) 11/09/23 08:31
Glucose 118 mg/dl (70-99) H 11/09/23 08:31
Calcium 9.1 mg/dl (8.4-10.2) 11/09/23 08:31
LDL Cholesterol, Calc 48 mg/dl 11/07/23 08:07
Vitamin B12 394 pg/ml (239-931) 11/07/23 08:07
Patient Allergies
adhesive Allergy (Verified 09/12/20 05:57)
Plastic bandaids cause itching
lisinopril Allergy (Verified 09/12/20 05:57)
angioedema
cats,dogs,perfumes,candles,grass Allergy (Uncoded 09/12/20 05:57)
chest tightness,asthma
shrubs,trees, Allergy (Uncoded 09/12/20 05:57)
chest tightness,asthma
Vital Signs and Labs
-
Vital Signs and Labs:
Vital Signs
Temp Pulse Resp BP Pulse Ox
36.6 C 79 18 117/53 97
11/10/23 07:20 11/10/23 08:30 11/10/23 07:20 11/10/23 08:30 11/10/23 07:20
Lab Results
11/09/23 08:31
11/09/23 08:31
PT 15.6 Sec (11.4-14.6) H 11/06/23 09:23
INR 1.26 11/06/23 09:23
APTT 31.9 Sec (23.4-35.0) 11/06/23 09:23
Sodium 139 mmol/L (135-145) 11/09/23 08:31
Potassium 4.0 mmol/L (3.5-5.1) 11/09/23 08:31
BUN 15 mg/dl (7-17) 11/09/23 08:31
Glucose 118 mg/dl (70-99) H 11/09/23 08:31
Calcium 9.1 mg/dl (8.4-10.2) 11/09/23 08:31
LDL Cholesterol, Calc 48 mg/dl 11/07/23 08:07
Vitamin B12 394 pg/ml (239-931) 11/07/23 08:07
Home Medications
-
Home Medications
fluticasone propionate 50 mcg/actuation nasal spray,suspension 1 spray intranasal DAILY Lung/breathing issues 03/06/17
amlodipine 2.5 mg tablet 2.5 mg PO DAILY ##30 09/13/20
bumetanide 2 mg tablet 2 mg PO DAILY Fluid retention/Swelling ##0 09/13/20
acetaminophen 500 mg tablet (Tylenol Extra Strength) 1,000 mg PO Q6HPRN PRN mild pain/fever 11/06/23
fluticasone 100 mcg-salmeterol 50 mcg/dose blistr powdr for inhalation (Wixela Inhub) 1 inh inhalation R BID Lung/Breathing Issues 11/06/23
potassium chloride 10 mEq tablet,extended release 10 meq PO DAILY Electrolyte Repletion 11/06/23
Medications
-
Medications:
Generic Name Dose Route Start Last Admin
Trade Name Freq PRN Reason Stop Dose Admin
Acetaminophen 1,000 mg 11/06/23 13:43 11/08/23 14:22
Acetaminophen 500 Mg Tablet PO 12/04/23 13:42 1,000 mg
Q6HPRN PRN Administration
mild pain/fever >100.4F
Amlodipine Besylate 2.5 mg 11/07/23 08:00
Amlodipine 2.5 Mg Tablet PO 12/05/23 07:59
DAILY VIRAL
Aspirin 81 mg 11/07/23 08:00 11/10/23 08:30
Aspirin 81 Mg (Enteric Coated) Tablet PO 12/05/23 07:59 81 mg
DAILY VIRAL Administration
Atorvastatin Calcium 20 mg 11/06/23 18:00 11/09/23 17:18
Atorvastatin (Lipitor) 20 Mg Tablet PO 12/04/23 17:59 20 mg
QPM VIRAL Administration
Bisacodyl 10 mg 11/06/23 13:43
Bisacodyl 10 Mg Rectal Suppository RECTAL 12/04/23 13:42
[id number] PRN
constipation
Bumetanide 2 mg 11/07/23 08:00 11/10/23 08:30
Bumetanide 2 Mg Tablet PO 12/05/23 07:59 2 mg
DAILY VIRAL Administration
Carboxymethylcellulose Sodium 1 drops 11/09/23 20:00 11/10/23 08:31
Carboxymethylcellulose Ophth Gel (Celluvisc) Droperette OPHTH 12/07/23 19:59 1 drops
Q4HWA VIRAL Administration
Cefdinir 300 mg 11/09/23 20:00 11/10/23 08:29
Cefdinir 300 Mg Capsule PO 300 mg
Q12 VIRAL Administration
Clopidogrel Bisulfate 75 mg 11/07/23 08:00 11/10/23 08:28
Clopidogrel 75 Mg Tablet PO 12/05/23 07:59 75 mg
DAILY VIRAL Administration
Heparin Sodium 5,000 units 11/06/23 20:00 11/10/23 08:28
Heparin 5,000 Units/Ml 1 Ml Vial SC 12/04/23 19:59 5,000 units
Q12 VIRAL Administration
Menthol/Methyl Salicylate 0 applic 11/08/23 14:14 11/10/23 08:32
Bengay-Like Cream TOPICAL 12/06/23 14:13 1 applic
TID VIRAL Administration
Pantoprazole Sodium 40 mg 11/08/23 10:55 11/10/23 08:29
Pantoprazole 40 Mg Delayed Release Tablet PO 12/06/23 10:54 40 mg
DAILY VIRAL Administration
Polyethylene Glycol 17 grams 11/10/23 08:47
Polyethylene Glycol Powder 17 Grams Packet PO 12/08/23 07:59
DAILY VIRAL
Potassium Chloride 10 meq 11/07/23 08:00 11/10/23 08:29
Potassium Chloride 10 Meq Extended Release Tablet PO 12/05/23 07:59 10 meq
DAILY VIRAL Administration
Fluticasone/Salmeterol 2 puff 11/06/23 20:00 11/10/23 08:12
Advair Hfa 45/21 Inhaler INH 12/04/23 19:59 Not Given
R BID VIRAL
Senna/Docusate Sodium 1 tablet 11/06/23 13:43
Docusate W/Senna (Nadira-Colace) Tablet PO 12/04/23 13:42
BIDPRN PRN
constipation
Sodium Chloride 0 flush 11/06/23 14:00
Sodium Chloride 0.9% (Flush) Syringe IV 12/04/23 13:59
PER PROTOCOL VIRAL
[2023-11-10 09:20] VITALS: BP 111/69; PULSE 87; O2SAT 98
[2023-11-10 09:25] VITALS: BP 111/69; PULSE 89; O2SAT 99
--- NOTE | 2023-11-10 10:34 | W.PN.CD ---
Today's Communication / Plan
-
CAM without lizzy
ILR placed, will arrange op follow up
will sign off
Impression / Plan
-
BACKGROUND: 83F with hypertension with asthma, hypertension, and ovarian cancer status post total hysterectomy and chronic lymphedema who presented to the emergency department 11/06/2023 with right sided weakness and facial droop. She had associated
dizziness, blurred vision, and slurred speech. She was found to have a CVA.
CVA
-MRI with acute to subacute infarction with multiple foci, majority involving cerebellum, middle cerebellar peduncles, as well as involvement of right lateral cindy
-On DAPT (aspirin 81 mg and clopidogrel 75 mg)
-Her LDL is 48 and HgbA1c 3.7%
-CAM without LIZZY, ILR placed.
PVCs, some aberrancy, asymptomatic
Hypertension, BP stable, amlodipine on hold for hypotension
Hypertriglyceridemia, triglycerides 255
RBBB
Lymphedema, on bumetanide as an outpatient
Splenomegaly, per primary
Subjective:
She is without complaint
Physical Exam
Vital Signs/Labs
Vital Signs
Temp Pulse Resp BP Pulse Ox
98 F 79 18 117/53 97
11/10/23 07:20 11/10/23 08:30 11/10/23 07:20 11/10/23 08:30 11/10/23 07:20
11/09/23 11/10/23 11/11/23
06:59 06:59 06:59
Actual Weight 84.2 kg
11/09/23 08:31
11/09/23 08:31
PT 15.6 Sec (11.4-14.6) H 11/06/23 09:23
INR 1.26 11/06/23 09:23
APTT 31.9 Sec (23.4-35.0) 11/06/23 09:23
Magnesium 1.9 mg/dl (1.6-2.3) 11/08/23 07:14
Triglycerides 255 mg/dl (10-149) H 11/07/23 08:07
LDL Cholesterol, Calc 48 mg/dl 11/07/23 08:07
VLDL Cholesterol, Calc 51 mg/dl (0-30) H 11/07/23 08:07
HDL Cholesterol 10 mg/dl 11/07/23 08:07
Physical Exam
Constitutional: No acute distress
Cardiovascular: Rhythm & rate is regular, Pedal edema is absent, JVD pressure is normal, Systolic murmur absent and Diastolic murmur absent
Respiratory: Respiratory effort normal, Lungs clear to auscul., Wheeze Absent, Crackles Absent and Rhonchi Absent
Neuro/Psych: AO x 3
Data Reviewed
-
Date of Service: November 10, 2023
Medical Decision Making: Review of Case with other Provider (Dr Rodriguez: ilr placed)
EKG: Other (tele sinus with pvc)
--- NOTE | 2023-11-10 10:56 | W.PN.HOSP.TC ---
Today's Communication/Plan
-
Discharge today
Assessment / Plan
Assessment / Plan
Physical Exam
General: Not in acute distress
HEENT: Normocephalic
Respiratory: Clear to Auscultation Bilaterally
Cardiac: Regular Rhythm and S1/S2
GI: Soft, Nontender and Nondistended. Positive bowel sounds.
Musculoskeletal: No Cyanosis and No Edema
Neuro: Awake, Alert, Oriented and Other (rt sided facial droop, rt lower extremity weakness - IMPROVED, rt UE with 4/5 strength)
Assessment/Plan
Acute CVA with presentation of right-sided weakness
neuro felt that symptoms started on 11/04 and thus not a candidate for thrombolysis
MRI (as per radiologist's report): Multiple foci of acute to subacute infarction, as described. The majority of these foci involving the cerebellum, middle cerebellar peduncles, as well as involvement of the r
right lateral cindy. Mild to moderate diffuse atrophy. No evidence for mass involving the internal auditory canals. No evidence for cerebellopontine angle mass.
-Cardiology onboard, appreciate their evaluation and recommendations
-TTE unremarkable, and CAM was normal as per cardiology
-Fall and aspiration precautions.
-Continue eye patch and ocular lubricants
-Continue ASA 81 mg QD indefinitely.
-Plavix 75 mg QD for 21 days (through November 27, 2023)
-TSH okay
-LDL is at goal
-Loop recorder if no events of Telemetry and normal CAM.
-PT.
-DVT prophylaxis.
-Case was discussed with patient's family. All questions were answered
Anemia
Splenomegaly
as per POA in process of being worked up. She has been scheduled to have an abd US and has been referred to Dr. Sutton. Abdominal ultrasound completed inpatient with result of splenomegaly.
Fe sat 24%, Ferritin pending
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 Would only consider an EGD if patient were to have significant GI bleeding
while inpatient given her recent CVA and generally Neurology likes to wait for at least 6 months before even considering procedures in these types of patients.
-Per GI: once daily PPI given patient's DAPT and prior NSAID history
-Consulted hematology, appreciate their evaluation and recommendations: patient's anemia is mild, no treatment is needed at this time. Sour Bleaching Pleater to initiate inpatient work-up with lab studies, and plan for outpatient heme follow-up after rehab
stay
Thyroid Nodule on Ultrasound in Hospital October 2023
-Needs outpatient follow-up
Concern for Escherichia coli UTI
-Ceftriaxone switched to Cefdinir to complete 5 day course
s/p bilateral TKR, Right hip replacement
History of ovarian cancer
History of asthma
P:admit to tele
Plavix/ASA
Full Code
More than 30 minutes spent in discharge including
Final examination of the patient
Summarizing hospital stay
Instructions for continuing care to all relevant caregivers
Preparation of discharge records, prescriptions, and referral forms
Total time spent (in minutes): 35
Anticipated Discharge: Today
Subjective/Interval History
-
Date of Service: November 10, 2023
Patient was seen and examined. She reported that she continues to feel better, and denied any new symptoms or complaints.
Objective Data
-
Vital Signs:
Vital Signs
Temp Pulse Resp BP Pulse Ox
98 F 79 18 117/53 97
11/10/23 07:20 11/10/23 08:30 11/10/23 07:20 11/10/23 08:30 11/10/23 07:20
I&O
11/09/23 11/10/23 11/11/23
06:59 06:59 06:59
Intake Total 840 / 840 960 / 960
Output Total 3250 / 3250
Balance -2410 / -2410 960 / 960
[2023-11-10 11:30] VITALS: BP 116/59
--- NOTE | 2023-11-10 11:51 | PTCARENOTE ---
pt back from manager labor delivery s/p CAM. pt with the loop recorder. Vss. room air. denies any pain. pt is AAO*3. call marr within the reach. will continue to monitor.
--- NOTE | 2023-11-10 12:01 | ITS.CL.IMPLP ---
Skiver Heel Tap - Implant Loop
Implant Loop
Procedure Report:
Date of Procedure: November 10, 2023.
Procedure: Insertable Loop Recorder Implant.
Indication: Embolic stroke of unknown source.
Performing physician: Willie Singh MD, [facility].
Implant: Medtronic; Reveal LINQII; Model# [id number]; Serial# [id number].
Technique: The patient was prepped and draped in the usual fashion. A time-out was performed.�No intravenous sedation was administered. Local anesthetic was applied to the left pre-pectoral subcutaneous tissue. Using the insertion kit an incision
was made left of the midline in the fourth intercostal space and the device was implanted subcutaneously and directed towards the nipple. Hemostasis was excellent. The skin was closed with steri-strips. There was no blood loss. There were no
complications. No fluoroscopy. R waves measured 0.58 mV and P waves were visible.
Final Programming: Detections: Afib, tachy at 160 bpm, cruz at 30 bpm, pause at 3 sec.
Conclusion: Uncomplicated insertable loop implant.
Recommendation: Routine post-insertable loop care. The device is MRI conditional without a waiting period and up to 3 Lora.
cc: Mickey Fleming MD and Mandi Del Cid MD.
--- NOTE | 2023-11-10 14:25 | CM ---
CM sent referral to [facility] yesterday for consideration. notified earlier today by Eunice Castro that Kayley has been accepted and can be transferred today pending BM.
Await update from [facility] regarding transfer time.
[facility] Report: [phone]
Jarrett
[2023-11-10 15:46] VITALS: BP 134/74
[2023-11-10 22:33] LABS: Haptoglobin 16 mg/dL (30-200)
[2023-11-12 07:48] LABS: Cardiolipin IgA Antibody 11 APL (<=11); Cardiolipin IgM Antibody <10 MPL (<=12); Cardiolipin Igg Antibody <10 GPL (<=14)
== END 2023-11-10 16:50 | DRG 41 ==
LOC: 4 EAST ACU 12:39
PROVIDERS: Internal Medicine Cardiovascular Disease; Nurse Practitioner; Nurse Practitioner Gerontology; ADMITTING PHYSICIAN Internal Medicine; ATTENDING PHYSICIAN Hospitalist; CONSULT PHYSICIAN Internal Medicine Cardiovascular Disease; CONSULT PHYSICIAN Internal Medicine Hematology & Oncology; CONSULT PHYSICIAN Physical Medicine & Rehabilitation; CONSULT PHYSICIAN Psychiatry & Neurology Neurology; EMERGENCY PHYSICIAN Student in an Organized Health Care Education/Training Program; FAMILY PHYSICIAN Internal Medicine; OTHER PHYSICIAN Psychiatry & Neurology Neurology; OTHER PHYSICIAN Student in an Organized Health Care Education/Training Program
PROC: B24BZZ4 Ultrasonography of Heart with Aorta, Transesophageal (ICD-10-PCS; 2023-11-10)
PROC: 0JH602Z Insertion of Monitoring Device into Chest Subcutaneous Tissue and Fascia, Open Approach (ICD-10-PCS; 2023-11-10)
DX: I63.443 Cerebral infarction due to embolism of bilateral cerebellar arteries (principal); G81.91 Hemiplegia, unspecified affecting right dominant side; G93.49 Other encephalopathy; N39.0 Urinary tract infection, site not specified; R29.810 Facial weakness; I10 Essential (primary) hypertension; R29.706 NIHSS score 6; R47.1 Dysarthria and anarthria; I95.9 Hypotension, unspecified; D64.9 Anemia, unspecified; R16.1 Splenomegaly, not elsewhere classified; I89.0 Lymphedema, not elsewhere classified; J45.909 Unspecified asthma, uncomplicated; I45.10 Unspecified right bundle-branch block; H53.8 Other visual disturbances; E66.01 Morbid (severe) obesity due to excess calories; I49.3 Ventricular premature depolarization; B96.20 Unspecified Escherichia coli [E. coli] as the cause of diseases classified elsewhere; E78.1 Pure hyperglyceridemia; D72.821 Monocytosis (symptomatic); E78.5 Hyperlipidemia, unspecified; G62.9 Polyneuropathy, unspecified; Z96.653 Presence of artificial knee joint, bilateral; Z96.641 Presence of right artificial hip joint; Z68.32 Body mass index [BMI] 32.0-32.9, adult; Z88.8 Allergy status to other drugs, medicaments and biological substances; Z85.43 Personal history of malignant neoplasm of ovary; Z79.899 Other long term (current) drug therapy
CPT/HCPCS: 33285; 70450; 70496; 70498; 70551; 76700; 80048; 80053; 80061; 81003; 81015; 82248; 82607; 82728; 82746; 82962; 83010; 83021; 83036; 83540; 83550; 83615; 83735; 84443; 84484; 85025; 85027; 85045; 85610; 85613; 85730; 86146; 86147; 86880; 87077; 87086; 87186; 92523; 92526; 92610; 93005; 93306; 93312; 93320; 93325; 93970; 94640; 96374; 97110; 97116; 97129; 97163; 97167; 99285; C1764; Q9967

== ENCOUNTER 2023-11-28 12:24 | Inpatient (IN) | payer MEDICARE, OTHER, SELFPAY ==
[2023-11-28] VITALS (11 sets, daily range): BP systolic 83–134; BP diastolic 44–92; BMI 33.7
[2023-11-28 08:40] LABS: Glucose - Point of Care 116 mg/dl (70-99)
--- NOTE | 2023-11-28 08:42 | ED.CVA ---
History of Present Illness
General
Chief Complaint: CVA/TIA Symptoms
Source: patient, family and ambulance crew
Exam Limitations: none
Time Seen by Provider: 11/28/23 08:57
Nursing documentation reviewed up to this point in time: agreed with
Onset of Stroke Symptoms
Onset of symptoms known: Yes
Date of onset of symptoms: 11/28/23
History of Present Illness
History of Present Illness:
Patient is an 83-year-old female brought by EMS from [facility] for strokelike symptoms. EMS reports the patient started with garbled speech and numbness and tingling to her mouth and tongue at 630 this morning. Patient arrives awake alert she has
garbled speech but able to give history. She reports at 630 this morning she noticed that her tongue and lips felt off and felt tingly she also feels slight weakness sensation and a tight heavy sensation in her left arm. Denies headache.
Patient has a history of recent stroke 2 weeks ago.
Patient was admitted 11/05 at that time she had an MRI which did show multiple embolic strokes. Patient did have a normal echo at that time. Patient was discharged at that time to [facility] on aspirin and Plavix. Patient is presently in [facility]
now.
Power of fitness teacher as well as sister at bedside and they do report that patient's speech is now garbled worse than normal
Past History
Past History
ED Past Medical History: Asthma, HTN, Other (Ovarian CA) and Other (lymphedema )
ED Past Surgical History: Gynecological and Orthopedic (bilateral knee replacement and right hip replacement )
Social History
Tobacco: Non-smoker
Alcohol: None
Drug: None
Personal: Single
Living: alone
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
Family History
Family History: Other (Noncontributory)
Review of Systems
Review of Systems
Allergies reviewed?: Yes
All Other Systems: ROS reviewed and negative except as documented in HPI and ROS
Constitutional: Reports no symptoms
Respiratory: Reports no symptoms
ABD/GI: Reports no symptoms
Musculoskeletal: Reports no symptoms
Skin: Reports no symptoms
Neurological: Reports other (Numbness tingling sensation to tongue lips garbled speech slight heavy sensation to left arm); Denies headache
Psychiatric: Reports no symptoms
Phy Exam
General Physical Exam
General Presentation: no apparent distress
General age: appears stated age
General Skin: warm and dry
General Habitus: elderly
General Mental: alert
General Hydration: appears well hydrated
Eye Exam
Eye Exam: PERRL and EOMI
Eye Exam General: PERRL: bilateral and EOM intact: bilateral
Pupil Exam: Bilateral: round and reactive
Cardiovascular Exam
Cardiovascular Exam: regular rate/rhythm and no murmur
Pulmonary Exam
Pulmonary Exam: lungs clear
Neurological Exam
Neurological Exam: alert
NIH Stroke Score
Level of Consciousness: 0 - Alert
LOC questions: 0-Answers both correctly
LOC Commands: 0-Performs both correctly
Best Gaze: 0-Normal
Visual Willard: 1=Partial hemianopia
Facial palsy: 2=Partial paralysis
Motor - Right Arm: 0=No drift 10 seconds
Motor - Left Arm: 0=No drift 10 seconds
Motor - Right Le-Drift < 5 seconds
Motor - Left Le-Drift < 5 seconds
Limb Ataxia: 0-Absent
Sensation: 1-Mild loss
Best Language: 0-No aphasia
Dysarthria: 1-Mild slurring
Extinction and Inattention: 0-No abnormality
Total Score:: 7
Course
Orders/Labs/Results
Orders:
Orders
11/28/23 08:42
Electrocardiogram (*1) Stat
Reason for Study: Other
Other Reason for Exam: neuro symptoms
CT HEAD STROKE ALERT W/o Cont Urgent
Comment:
Reason For Exam: garbled speech left side weakness
CT HEAD/NECK ANG STROKE ALERT Urgent
Comment:
Reason For Exam: new garbled speech left side weakness
Bedside Glucose- Treatment ONCE
Cardiac Monitoring- Treatment ONCE
EKG- Treatment ONCE
IV Insert/Care/Rem.- Treatment PRN
11/28/23 08:50
Complete Blood Count/With Diff Urgent
Comprehensive Metabolic Panel Urgent
Troponin I Urgent
11/28/23 09:40
MRI Brain [MR Brain Without Contrast] Routine
Comment:
Reason For Exam: worsening of dysarthira
OK for patient to be off Cardiac Monitoring for MRI: No
Recent pill cam endoscopy?: No
11/28/23 09:52
Aspirin Chewable [Low Strength Aspirin] 81 mg PO NOW STA
Clopidogrel Bisulfate [Plavix] 75 mg PO NOW STA
Abnormal Lab Results
11/28/23 11/28/23
08:37 08:50
WBC 4.0 L 10^3/uL
(4.8-10.8)
RBC 3.55 L 10^6/uL
(4.20-5.40)
Hgb 10.7 L g/dL
(12.0-16.0)
Hct 32.5 L %
(37.0-47.0)
MCHC 32.9 L g/dL
(33.0-37.0)
RDW 16.2 H %
(11.5-14.5)
Absolute Lymphs (auto) 0.4 L 10^3/uL
(1.2-3.4)
Lymphocytes % 10.4 L %
(20.5-51.1)
Monocytes % 13.7 H %
(1.7-9.3)
Chloride 97 L mmol/L
(98-107)
Carbon Dioxide 32 H mmol/L
(22-30)
Glucose 119 H mg/dl
(70-99)
Total Bilirubin 3.8 H mg/dl
(0.2-1.3)
POC Glucose 116 H mg/dl
(70-99)
11/28/23 08:50
11/28/23 08:50
Vital Signs
Initial and Last Documented VS:
Initial Vital Signs
BP
134/67
11/28/23 08:31
Last Documented Vital Signs
Temp Pulse Resp BP Pulse Ox
98.6 F 96 15 126/73 96
11/28/23 08:36 11/28/23 09:15 11/28/23 09:15 11/28/23 09:15 11/28/23 09:15
MDM/Problems Addressed
Differential Diagnosis Includes:
Not limited to stroke
MDM/Problems Addressed:
As documented patient is 83-year-old female with recent stroke several weeks ago presently on aspirin only brought by EMS from [place] for paresthesias to lip tongue garbled speech and slight weakness to left arm. Patient has residual right-sided
weakness and residual right-sided droop however only with very mild slurred speech. Power of fitness teacher family at bedside reports patient's speech is more garbled than yesterday. Patient presents awake alert she is able to give history unable to
understand her the speech is garbled she reports this sensation started at 630 this morning. Stroke alert called neurology at bedside CAT scan ordered along with CTA head and neck.
As per neurology patient is not a candidate for tPA.
CAT scans are unremarkable. As discussed with neurology patient was given aspirin /Plavix admitted to the hospital service
Chronic conditions affecting care:
recent cva
*Radiology
Radiology exam reviewed: radiology read reviewed
*Pulse Oximetry
Patient hypoxic: no
*EKG
Interpreted by ED Provider?: Yes
Interpretation: normal
Heart Rate: 97
Rate: normal
Rhythm: sinus
Ischemia: no ischemia
*Critical Care Note
Total Time (30-74mins, 75-104mins- exclusive of procedures): Not Applicable
ED Attending Note
-
Portions of this chart may have been created with voice recognition software.� Occasional wrong word or��sound alike� substitutions may have occurred due to the inherent limitations of voice recognition software.
Discharge Plan
Departure
Patient Disposition: Admit
Date of Disposition: 11/28/23
Time of Disposition: 10:01
Admit to: Telemetry
Admit to doctor: hospitalist
Presentation/result/management discussed w/ accepting MD/DO: Hospitalist
Patient with high blood pressure during this ER visit?: Yes
Condition: Fair
Covid-19: Not Applicable
Discharge Problem:
Acute CVA (cerebrovascular accident)
Prescriptions:
No Action
bumetanide 2 MG tablet
2 mg PO DAILY Qty: 0 0RF
Rx Instructions:
Hold if systolic blood pressure <130 while on Dilaudid.
potassium chloride 10 MEQ tablet extended release
10 meq PO DAILY
Rx Instructions:
Resume only when taking Bumex unless otherwise advised by
pantoprazole 40 mg Tablet,Delayed Release (Dr/Ec)
40 mg PO DAILY Qty: 30 1RF
polyethylene glycol 3350 [HealthyLax] 17 gram Powder In Packet
17 g PO DAILY Qty: 100 0RF
acetaminophen 325 mg Tablet
650 mg PO Q6HPRN PRN (Reason: mild pain/fever) 30 Days Qty: 100 0RF
cyanocobalamin (vitamin B-12) 1,000 mcg Tablet
1,000 mcg PO DAILY 30 Days Qty: 30 0RF
bisacodyl 10 mg Suppository
10 mg [place] DAILYPRN PRN (Reason: constipation) 30 Days Qty: 30 0RF
docusate sodium 100 mg Capsule
100 mg PO DAILY 30 Days Qty: 30 0RF
bisacodyl 5 mg Tablet,Delayed Release (Dr/Ec)
10 mg PO DAILYPRN PRN (Reason: constipation) 30 Days Qty: 30 0RF
heparin (porcine) 5,000 unit/mL Solution
5,000 unit SC Q12 30 Days Qty: 60 0RF
loratadine 10 mg Tablet
10 mg PO DAILY 30 Days Qty: 30 0RF
fluticasone propion-salmeterol 45-21 mcg/actuation Hfa Aerosol Inhaler
2 puff inhalation R BID 30 Days Qty: 1 0RF
Chloraseptic Sore Throat 6-10 mg Lozenge
1 isaiah PO Q4HPRN PRN (Reason: sore throat) 30 Days Qty: 30 0RF
ezetimibe 10 mg Tablet
10 mg PO HS 30 Days Qty: 30 0RF
atorvastatin 20 mg Tablet
20 mg PO QPM Qty: 30 1RF
aspirin 81 mg Tablet,Delayed Release (Dr/Ec)
81 mg PO DAILY Qty: 30 8RF
carboxymethylcellulose sodium [TheraTears] 1 % Dropperette,Gel
1 drp ophthalmic (eye) Q4HWA Qty: 30 1RF
Rx Instructions:
1 drop to right eye
clopidogrel 75 mg Tablet
75 mg PO DAILY 2 Days Qty: 2 0RF
Referrals:
Jhon Car MD [Family Provider] -
Interventions
Interventions:
*Risk Screen - Suicide Last Done: 11/28/23 08:36
*General Assessment Last Done: 11/28/23 08:36
*Neglect/Abuse Screening Last Done: 11/28/23 08:36
ED- Pulmonary Assessment Last Done: 11/28/23 09:08
ED- Neurological Assessment Last Done: 11/28/23 09:08
ED- Cardiac Assessment Last Done: 11/28/23 09:08
ED Swallowing Screen Last Done: 11/28/23 10:05
Discharge Date and Time
Print Language: KYRGYZ
--- NOTE | 2023-11-28 08:45 | EDRN ---
Pt taken to CT, neurologist in CT during scan.
[2023-11-28 09:05] LABS: % Basophils 1.5 % (0-2); % Eosinophils 1.5 % (0-6); % Immature Granulocytes 0.5 % (0-0.5); % Lymphocytes 10.4 % (20.5-51.1); % Monocytes 13.7 % (1.7-9.3); % Neutrophils 72.4 % (42.2-75.2); Absolute Basophils 0.1 10^3/uL (0-0.2); Absolute Eosinophils 0.1 10^3/uL (0-0.7); Absolute Lymphocytes 0.4 10^3/uL (1.2-3.4); Absolute Monocytes 0.6 10^3/uL (0.1-0.6); Absolute Neutrophils 2.9 10^3/uL (1.4-6.5); Hematocrit 32.5 % (37.0-47.0); Hemoglobin 10.7 g/dL (12.0-16.0); Mean Corp Hgb Conc. 32.9 g/dL (33.0-37.0); Mean Corpuscular Hgb 30.1 pg (27.0-31.0); Mean Corpuscular Volume 91.5 fL (81.0-99.0); Mean Platelet Volume 9.8 fL (7.4-10.4); Nucleated Red Blood Cells % 0 %; Platelet Count 165 10^3/uL (130-400); Red Blood Cell Count 3.55 10^6/uL (4.20-5.40); Red Cell Dist. Width 16.2 % (11.5-14.5)
--- NOTE | 2023-11-28 09:06 | EDRN ---
Neurologist in room to assess patient.
[2023-11-28 09:13] LABS: ALT (SGPT) 15 U/L (0-35); AST (SGOT) 29 U/L (14-36); Albumin 3.9 g/dl (3.5-5.0); Alkaline Phosphatase 95 U/L (38-126); Blood Urea Nitrogen 17 mg/dl (7-17); Calcium 9.3 mg/dl (8.4-10.2); Carbon Dioxide 32 mmol/L (22-30); Chloride 97 mmol/L (98-107); Glucose 119 mg/dl (70-99); Potassium 3.7 mmol/L (3.5-5.1); Sodium 137 mmol/L (135-145); Total Bilirubin 3.8 mg/dl (0.2-1.3); Total Protein 6.9 g/dl (6.3-8.2); eGFR > 60.00
--- NOTE | 2023-11-28 09:20 | CON.NEURO ---
Consultation
Order
Date of Consultation: 11/28/23
Reason for Consult: stroke alert
called in: 8:38 AM
Neurology consult note
HPI: This is an 83-year-old woman who presented to [facility] on November 28, 2023 with worsening of dysarthria. According to the patient she noted her speech being more slurred around 5:15 AM today. She was assisted to use the
restroom and fell asleep before waking up agaain at 630 am noticing inability to sit straight in her wheelchair. No reports of change in vision, strength or headache.
Ms. Garcia was hospitalized to [facility] in October and diagnosed with acute bihemispheric strokes as well as E. coli UTI. She was discharged to [facility] with residual right LMN CN VII/R CN palsies from the R pontine with residual
diplopia and dysarthria.
ER VS: 134/67, 102 afebrile
Labs: Glucose�119, bilirubin�3.8 WBC�4, hemoglobin�10.7, platelets�165
CT head-no acute intracranial hemorrhage, large vessel territory infarction or mass. Unchanged hypodensity along the inferior genu of the corpus callosum. Mild global atrophy . There is a 5 mm calcified meningioma along the right parietal convexity
as well as a 6 mm partially calcified meningioma along the right posterior falx.
CTA head/neck-no LVO or significant stenosis
EKG: NSR, QTc Int : 464 ms
PMH: ovarian CA, L thyroid nodule; DLP, HTM, asthma, OA, lymphedema, BL SNHL, ambulatory dysfunciton
PSH: LINQII(11/10/2023), bilateral cataract surgery, R DAYAN, BL TKA, BL TKA, BETTY with BL oophorectomy
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
FH: not contributory to current presentation
All:ACEIs
ROS: Positive for truncal ataxia, dysarthria, diplopia..
General: Well developed. In no acute distress.
Cardio: Regular rate and rhythm. Extremities are without cyanosis or edema.
Neuro:
Mental Status: Alert, oriented to person, place, and date. Increased processing time. Follows simple requests consistently. Nonfluent. No hemineglect
Cranial Nerves: Pupils are equally round, surgical. EOMs full except for a mild R abduction palsy. R hemianopsia. No ptosis. R LMN CN VII palsy. Poor hearing AU. Mild-moderate dysarthria.
Motor: Normal bulk and tone. No pronator drift. Both legs drift in<5 secs.
Coordination: No dysmetria or tremor.
Gait: deferred
Assessment and Plan:
I. Worsening of chronic dysarthria
II. Cryptogenic subacute bihemispheric strokes with residual right LMN CN VII and CN palsies
III. R falcine/parietal convexity meningiomas
-Continue Telemetry monitoring.
-Continue ASA 81 mg QD and Plavix 75 mg QD
-ua, ua cx
-Brain MRI wo [place]
-Cardiology consult: [facility]UM[facility]Z data review
-Case was discussed with patient's friends All questions were answered.
I personally reviewed all radiology and labs along with past medical records pertinent to current medical problems. Total time spent in patient care is 60 minutes.
Thank you for allowing us to participate in the care of this patient. We will continue to follow. Please do not hesitate to contact us with any questions or concerns.
Subjective/Objective
Subjective Data
Date of Service: November 28, 2023
Objective Data
Vital Signs
Temp Pulse Resp BP Pulse Ox
37.0 C 102 18 134/67 98
11/28/23 08:36 11/28/23 08:36 11/28/23 08:36 11/28/23 08:36 11/28/23 08:36
Lab Results
11/28/23 08:50
11/28/23 08:50
Sodium 137 mmol/L (135-145) 11/28/23 08:50
Potassium 3.7 mmol/L (3.5-5.1) 11/28/23 08:50
BUN 17 mg/dl (7-17) 11/28/23 08:50
Glucose 119 mg/dl (70-99) H 11/28/23 08:50
Calcium 9.3 mg/dl (8.4-10.2) 11/28/23 08:50
Patient Allergies
adhesive Allergy (Verified 11/28/23 08:36)
Plastic bandaids cause itching
cat dander Allergy (Verified 11/28/23 08:36)
chest tightness,asthma
dog dander Allergy (Verified 11/28/23 08:36)
chest tightness,asthma
grass pollen Allergy (Verified 11/28/23 08:36)
chest tightness,asthma
lisinopril Allergy (Verified 11/28/23 08:36)
angioedema
perfume Allergy (Verified 11/28/23 08:36)
chest tightness,asthma
tree and shrub pollen Allergy (Verified 11/28/23 08:36)
chest tightness,asthma
Medications
-
Home Medications
�Medication �Instructions �Recorded
bumetanide 2 mg tablet 2 mg PO DAILY Fluid 09/13/20
retention/Swelling ##0
potassium chloride 10 mEq 10 meq PO DAILY Electrolyte 11/06/23
tablet,extended release Repletion
pantoprazole 40 mg tablet,delayed 40 mg PO DAILY #30 tabs 11/10/23
release
polyethylene glycol 3350 17 gram 17 g PO DAILY #100 ea 11/10/23
oral powder packet (HealthyLax)
acetaminophen 325 mg tablet 650 mg (2 x 325 mg) PO Q6HPRN PRN 11/25/23
mild pain/fever 30 days #100 tabs
aspirin 81 mg tablet,delayed 81 mg PO DAILY CVA #30 tabs 11/25/23
release
atorvastatin 20 mg tablet 20 mg PO QPM cholesterol #30 tabs 11/25/23
benzocaine 6 mg-menthol 10 mg 1 isaiah PO Q4HPRN PRN sore throat 30 11/25/23
lozenges (Chloraseptic Sore Throat) days #30 ea
bisacodyl 10 mg rectal suppository 10 mg [place] DAILYPRN PRN constipation 11/25/23
30 days #30 ea
bisacodyl 5 mg tablet,delayed 10 mg (2 x 5 mg) PO DAILYPRN PRN 11/25/23
release constipation 30 days #30 tabs
carboxymethylcellulose sodium 1 % 1 drp ophthalmic (eye) Q4HWA dry 11/25/23
eye gel in a dropperette eye #30 ea
(TheraTears)
clopidogrel 75 mg tablet 75 mg PO DAILY CVA until 11/25/23
12 then stop 2 days #2 tabs
cyanocobalamin (vitamin B-12) 1,000 mcg PO DAILY Supplement 30 11/25/23
1,000 mcg tablet days #30 tabs
docusate sodium 100 mg capsule 100 mg PO DAILY bowel regimen 30 11/25/23
days #30 caps
ezetimibe 10 mg tablet 10 mg PO HS cholelesterol 30 days 11/25/23
#30 tabs
fluticasone propionate 45 2 puff inhalation R BID 30 days #1 11/25/23
mcg-salmeterol 21 mcg/actuation container
HFA inhaler
heparin (porcine) 5,000 unit/mL 5,000 unit SC Q12 Blood clot 11/25/23
injection solution prevention/tx 30 days #60 mL
loratadine 10 mg tablet 10 mg PO DAILY Allergies 30 days 11/25/23
#30 tabs
Vital Signs and Labs
-
Vital Signs and Labs:
Vital Signs
Temp Pulse Resp BP Pulse Ox
37.0 C 102 18 134/67 98
11/28/23 08:36 11/28/23 08:36 11/28/23 08:36 11/28/23 08:36 11/28/23 08:36
Lab Results
11/28/23 08:50
11/28/23 08:50
Sodium 137 mmol/L (135-145) 11/28/23 08:50
Potassium 3.7 mmol/L (3.5-5.1) 11/28/23 08:50
BUN 17 mg/dl (7-17) 11/28/23 08:50
Glucose 119 mg/dl (70-99) H 11/28/23 08:50
Calcium 9.3 mg/dl (8.4-10.2) 11/28/23 08:50
Home Medications
-
Home Medications
bumetanide 2 mg tablet 2 mg PO DAILY Fluid retention/Swelling ##0 09/13/20
potassium chloride 10 mEq tablet,extended release 10 meq PO DAILY Electrolyte Repletion 11/06/23
pantoprazole 40 mg tablet,delayed release 40 mg PO DAILY #30 tabs 11/10/23
polyethylene glycol 3350 17 gram oral powder packet (HealthyLax) 17 g PO DAILY #100 ea 11/10/23
acetaminophen 325 mg tablet 650 mg (2 x 325 mg) PO Q6HPRN PRN mild pain/fever 30 days #100 tabs 11/25/23
aspirin 81 mg tablet,delayed release 81 mg PO DAILY CVA #30 tabs 11/25/23
atorvastatin 20 mg tablet 20 mg PO QPM cholesterol #30 tabs 11/25/23
benzocaine 6 mg-menthol 10 mg lozenges (Chloraseptic Sore Throat) 1 isiaah PO Q4HPRN PRN sore throat 30 days #30 ea 11/25/23
bisacodyl 10 mg rectal suppository 10 mg [place] DAILYPRN PRN constipation 30 days #30 ea 11/25/23
bisacodyl 5 mg tablet,delayed release 10 mg (2 x 5 mg) PO DAILYPRN PRN constipation 30 days #30 tabs 11/25/23
carboxymethylcellulose sodium 1 % eye gel in a dropperette (TheraTears) 1 drp ophthalmic (eye) Q4HWA dry eye #30 ea 11/25/23
clopidogrel 75 mg tablet 75 mg PO DAILY CVA until november 26 then stop 2 days #2 tabs 11/25/23
cyanocobalamin (vitamin B-12) 1,000 mcg tablet 1,000 mcg PO DAILY Supplement 30 days #30 tabs 11/25/23
docusate sodium 100 mg capsule 100 mg PO DAILY bowel regimen 30 days #30 caps 11/25/23
ezetimibe 10 mg tablet 10 mg PO HS cholelesterol 30 days #30 tabs 11/25/23
fluticasone propionate 45 mcg-salmeterol 21 mcg/actuation HFA inhaler 2 puff inhalation R BID 30 days #1 container 11/25/23
heparin (porcine) 5,000 unit/mL injection solution 5,000 unit SC Q12 Blood clot prevention/tx 30 days #60 mL 11/25/23
loratadine 10 mg tablet 10 mg PO DAILY Allergies 30 days #30 tabs 11/25/23
[2023-11-28 09:24] LABS: Troponin I < 0.012 ng/ml
[2023-11-28] MEDS: LOW STRENGTH ASPIRIN 81 MG PO (10:04)
[2023-11-28] MEDS: PLAVIX 75 MG PO (10:04)
--- NOTE | 2023-11-28 11:54 | HPS.HSE ---
Family Physician
-
Family Physician: Jhon Car MD
Chief Complaint
-
stroke like symptoms
History of Present Illness
83 y/o F, hx of recent acute bihemispheric CVAs and LINQ placement, recent stint at [place] and now at [facility], hx of Asthma, OA, HLD, HTN presenting to ER for worsening dysarthria. She was her current baseline last evening and into this AM; at 5 AM
went to bathroom ok with assistance. at 630 AM, had inability to sit straight in her wheelchair, she also felt lip tingling and L arm tingling/pain. She reports her vision is better in her eye. No motor deficits, no headache.
in ER, CT head and CTA negative. Admitted for CVA w/u after stroke alert complete.
Medical History
Past Medical History
Past Medical History: Reports Other (recent acute bihemispheric CVAs and LINQ placement, recent stint at [place] and now at [facility], hx of Asthma, OA, HLD, HTN)
Past Surgical History: Reports Other (LINQII(11/10/2023), bilateral cataract surgery, R DAYAN, BL TKA, BL TKA, BETTY with BL oophorectomy)
Social History
Tobacco: Non-smoker
Alcohol: None
Drug: None
Living: Group Home
Family History
Family History: Not pertinent
Allergies / Home Medications
Allergies reflects when Allergies were last updated in [facility].
Home Medications with original date entered in [facility]
Allergy/Medication List:
Allergies
Allergy/AdvReac Type Severity Reaction Status Date / Time
adhesive Allergy Plastic Verified 11/28/23 08:36
bandaids
cause
itching
cat dander Allergy chest Verified 11/28/23 08:36
tightness,asthma
dog dander Allergy chest Verified 11/28/23 08:36
tightness,asthma
grass pollen Allergy chest Verified 11/28/23 08:36
tightness,asthma
lisinopril Allergy angioedema Verified 11/28/23 08:36
perfume Allergy chest Verified 11/28/23 08:36
tightness,asthma
tree and shrub pollen Allergy chest Verified 11/28/23 08:36
tightness,asthma
Home Medications
bumetanide 2 mg tablet 2 mg PO DAILY Fluid retention/Swelling ##0 09/13/20
potassium chloride 10 mEq tablet,extended release 10 meq PO DAILY Electrolyte Repletion 11/06/23
pantoprazole 40 mg tablet,delayed release 40 mg PO DAILY #30 tabs 11/10/23
polyethylene glycol 3350 17 gram oral powder packet (HealthyLax) 17 g PO DAILY #100 ea 11/10/23
aspirin 81 mg tablet,delayed release 81 mg PO DAILY CVA #30 tabs 11/25/23
atorvastatin 20 mg tablet 20 mg PO QPM cholesterol #30 tabs 11/25/23
benzocaine 6 mg-menthol 10 mg lozenges (Chloraseptic Sore Throat) 1 isaiah PO Q4HPRN PRN sore throat 30 days #30 ea 11/25/23
cyanocobalamin (vitamin B-12) 1,000 mcg tablet 1,000 mcg PO DAILY Supplement 30 days #30 tabs 11/25/23
docusate sodium 100 mg capsule 100 mg PO DAILY bowel regimen 30 days #30 caps 11/25/23
ezetimibe 10 mg tablet 10 mg PO HS cholelesterol 30 days #30 tabs 11/25/23
fluticasone propionate 45 mcg-salmeterol 21 mcg/actuation HFA inhaler 2 puff inhalation R BID 30 days #1 container 11/25/23
loratadine 10 mg tablet 10 mg PO DAILY Allergies 30 days #30 tabs 11/25/23
acetaminophen 325 mg tablet 650 mg PO Q4HPRN PRN mild pain/fever 11/28/23
bisacodyl 10 mg rectal suppository 10 mg GA DAILYPRN PRN IF NO BM ON 5TH DAY 11/28/23
carboxymethylcellulose sodium 1 % eye gel in a dropperette (TheraTears) 1 drp RIGHT EYE Q4H dry eye 11/28/23
heparin (porcine) 5,000 unit/mL injection solution 5,000 unit SC BID Blood clot prevention/tx 11/28/23
magnesium hydroxide 400 mg/5 mL oral suspension (Milk of Magnesia) 2,400 mg PO [id number] PRN IF NO BM ON 4TH DAY 11/28/23
sodium phosphates 19 gram-7 gram/118 mL enema (Fleet Enema) 118 ml GA DAILYPRN PRN I FNO BM ON 6TH DAY 11/28/23
Review of Systems
-
A 12 point ROS was completed and negative except as noted: Yes
Physical Exam
Vital Signs
Vital Signs
Temp Pulse Resp BP Pulse Ox
98.6 F 96 15 126/73 96
11/28/23 08:36 11/28/23 09:15 11/28/23 09:15 11/28/23 09:15 11/28/23 09:15
Physical Exam
General: No Apparent Distress
HEENT: NormoCephalic, Anicteric and Other (R eye abduction palsy)
Respiratory: Clear; No Wheezes
Cardiac: S1/S2 and Regular Rhythm
GI: Soft and Non Tender
Neuro: AO x 3 and Other (dysarthria)
Psych: Calm
Laboratory Results
-
11/28/23 08:50
11/28/23 08:50
Laboratory Results
Total Bilirubin 3.8 mg/dl (0.2-1.3) H 11/28/23 08:50
AST 29 U/L (14-36) 11/28/23 08:50
ALT 15 U/L (0-35) 11/28/23 08:50
Alkaline Phosphatase 95 U/L (38-126) 11/28/23 08:50
Troponin I < 0.012 ng/ml 11/28/23 08:50
Data Reviewed
-
CT Scan: Report Reviewed by me, Discussed with Patient and Discussed with Family
Lab Data: Labs Reviewed by me, Discussed with Patient and Discussed with Family
Impression/Plan
-
Assessment:
acute on chronic dysarthria, lip tingling, L arm heaviness/tingling
recent acute bihemispheric CVAs and LINQ placement
- CT and CTA negative
- MRI 11/06 showed: Multiple foci of acute to subacute infarction, as described. The majority of these foci involving the cerebellum, middle cerebellar peduncles, as well as involvement of the right lateral cindy.
- admit tele
- q4h neuro checks
- repeat MRI pending to determine if new/evolved CVA
- also evaluate stroke mimickers including BP changes. check UA.
- continue ASA, resume Plavix
- continue Statin/Zetia
- Neuro consulted
- PT/OT/ST evals
- s/p LINQ placement last admission; consult Cardiology on Wednesday for routine interrogation (patient did not bring recorder component to hospital). patient on tele here and no acute changes in blood thinners until MRI is complete
suspected R eye conjunctivitis
- start cipro eye drops
Anemia
Splenomegaly
- OP GI f/u as per prior notes
Recent E. Coli UTI - complete Abx course
- repeat UA as above
Essential HTN on Bumex
- hold Bumex as BP lower
Hx of ovarian Ca
Hx of Asthma
HLD
DVT ppx: SCDs pending MRI results
Code: Full
[2023-11-28] MEDS: CILOXAN 0.3% OPHTHALMIC SOLUTION 1 DROP OPHTH (14:58)
[2023-11-28] MEDS: REFRESH CELLUVISC GEL 1 DROPS RIGHT EYE (14:58)
[2023-11-28] MEDS: LIPITOR 20 MG PO (17:23)
[2023-11-28] MEDS: REFRESH CELLUVISC GEL RIGHT EYE (18:35)
[2023-11-28] MEDS: ADVAIR HFA 45/21 MCG INHALER 2 PUFF INH (19:56)
[2023-11-28] MEDS: REFRESH EYE DROPS (PF) 1 DROPS RIGHT EYE (20:45)
[2023-11-28] MEDS: ZETIA 10 MG PO (20:46)
[2023-11-29] VITALS (8 sets, daily range): BP systolic 94–137; BP diastolic 57–66; PULSE 90; O2SAT 98–99
[2023-11-29 00:38] LABS: Urine Albumin Trace (Neg - Trace); Urine Bilirubin 1+ (Negative); Urine Character Clear (Clear); Urine Color Amber; Urine Glucose Negative (Negative); Urine Ketone Negative (Negative); Urine Leukocyte Trace (Negative); Urine Nitrite Negative (Negative); Urine Occult Blood Negative (Negative); Urine Specific Gravity 1.015 (<1.030); Urine Urobilinogen 4+ (Neg - 1+)
[2023-11-29] MEDS: REFRESH EYE DROPS (PF) 1 DROPS RIGHT EYE ×6 (01:00→21:46)
[2023-11-29 03:00] LABS: Urine Amorphous Seen; Urine Red Blood Cell 0-2 /HPF (0-2); Urine Squamous Cell 16-20 /LPF (Few)
[2023-11-29 03:01] LABS: Urine Bacteria Moderate (Negative)
[2023-11-29] MEDS: ADVAIR HFA 45/21 MCG INHALER 2 PUFF INH ×2 (07:39→19:40)
[2023-11-29] MEDS: PROTONIX 40 MG PO (08:17)
[2023-11-29] MEDS: PLAVIX 75 MG PO (08:17)
[2023-11-29] MEDS: KCL 10 MEQ PO (08:17)
[2023-11-29] MEDS: CLARITIN 10 MG PO (08:17)
[2023-11-29] MEDS: ASPIR LOW (ENTERIC COATED) 81 MG PO (08:17)
[2023-11-29] MEDS: VITAMIN B-12 1000 MCG PO (08:17)
[2023-11-29 08:52] LABS: Hematocrit 28.8 % (37.0-47.0); Hemoglobin 9.5 g/dL (12.0-16.0); Mean Corpuscular Hgb 30.4 pg (27.0-31.0); Platelet Count 160 10^3/uL (130-400); Red Blood Cell Count 3.13 10^6/uL (4.20-5.40); Red Cell Dist. Width 16.7 % (11.5-14.5)
--- NOTE | 2023-11-29 08:52 | W.PN.HOSP.TC ---
Today's Communication/Plan
-
Brain MRI
Interrogate Linq
Assessment / Plan
Assessment / Plan
Gen-AAOx3, NAD
HEENT-NC, AT, anicteric, clear oral mm
Neck-supple
CV-reg, no M, +S1/S2
Lungs-clear B/L
Abd-soft, NT, ND
Ext-no edema
Musculoskeletal-no cyanosis, clubbing
Skin-warm and dry
Neuro-right facial droop
Psych-calm, cooperative
Acute on chronic dysarthria, lip tingling, L arm heaviness/tingling
recent acute bihemispheric CVAs and LINQ placement
- CT and CTA negative
- MRI 11/06 showed: Multiple foci of acute to subacute infarction, as described. The majority of these foci involving the cerebellum, middle cerebellar peduncles, as well as involvement of the right lateral cindy.
- admit tele
- q4h neuro checks
- repeat MRI pending to determine if new/evolved CVA
- also evaluate stroke mimickers including BP changes. check UA.
- continue ASA, resume Plavix
- continue Statin/Zetia
- Neuro consulted
- PT/OT/ST evals
- s/p LINQ placement last admission; consult Cardiology on Wednesday for routine interrogation (patient did not bring recorder component to hospital). patient on tele here and no acute changes in blood thinners until MRI is complete
Normocytic Anemia
Splenomegaly
- OP GI f/u as per prior notes
Recent E. Coli UTI
Essential HTN on Bumex
- hold Bumex as BP lower
Hx of ovarian Ca
Hx of Asthma
HLD
Obesity due to excess calories
DVT ppx: SCDs pending MRI results
Code: Full
Anticipated Discharge: Within 24 hours
Subjective/Interval History
-
Date of Service: November 29, 2023
Patient seen and examined. No complaints.
Objective Data
-
Labs:
Laboratory Results
11/29/23
08:15
WBC Pending
Hgb Pending
Hct Pending
Plt Count Pending
Sodium Pending
Potassium Pending
Chloride Pending
Carbon Dioxide Pending
BUN Pending
Creatinine Pending
Glucose Pending
Calcium Pending
Vital Signs:
Vital Signs
Temp Pulse Resp BP Pulse Ox
98.6 F 90 18 106/57 94
11/29/23 08:15 11/29/23 08:15 11/29/23 08:15 11/29/23 08:15 11/29/23 08:15
I&O
11/28/23 11/29/23 11/30/23
06:59 06:59 06:59
Intake Total 240 / 240
Output Total 350 / 350
Balance -110 / -110
Review of Systems
-
History Source: Patient
All other systems: Reviewed and negative
[2023-11-29 09:22] LABS: Blood Urea Nitrogen 12 mg/dl (7-17); Calcium 9.2 mg/dl (8.4-10.2); Carbon Dioxide 28 mmol/L (22-30); Chloride 98 mmol/L (98-107); Estimated Creatinine Clearance 66 ml/min; Glucose 114 mg/dl (70-99); Potassium 3.7 mmol/L (3.5-5.1); Sodium 137 mmol/L (135-145); eGFR > 60.00
--- NOTE | 2023-11-29 10:43 | W.PN.UPDATE ---
Update Note
Progress Note Update
[employer] Reveal LINQ II interrogated.
No atrial fibrillation.
Formal report on chart.
--- NOTE | 2023-11-29 13:44 | PTOTSP ---
Speech Therapy Evaluation
Pt with suspected mild oropharyngeal dysphagia. No s/sx of aspiration observed on evaluation, however pt remains at an increased risk of aspiration due to previous CVA involving cerebellum/cindy and current acute medical illness with stroke-like
symptoms.
Recommend:
1. IDDSI Level 7 (regular) solids and thin liquids
2. Medications as tolerated
3. Assistance/supervision with meals
4. Placement of straw/bolus on L side
5. General aspiration precautions
6. ST to follow and provide dysphagia tx as needed
--- NOTE | 2023-11-29 14:41 | W.PN.NEURO.1 ---
Documented by User: Doris Martinez NP 11/29/23 15:04
Today's Communication / Plan
-
.
Neuro Assessment/Plan
Assessment
This is an 83-year-old woman who presented to on November 28, 2023 with worsening of dysarthria. According to the patient she noted her speech being more slurred around 5:15 AM today. She was assisted to use the restroom and fell asleep before
waking up again at 630 am noticing inability to sit straight in her wheelchair. No reports of change in vision, strength or headache.
Ms. Garcia was hospitalized at in October and diagnosed with acute bihemispheric strokes as well as E. coli UTI. She was discharged to [place] with residual right LMN CN VII/R CN palsies from the R pontine with residual diplopia and dysarthria.
-CT Head 11/28/23: No acute intracranial abnormality noted. Stable chronic findings as detailed above. ASPECTS 10.
-CTA head/neck 11/28/23: CTA Head: No large vessel occlusion. No high-grade proximal stenosis. No aneurysm. CTA Neck: No significant arterial stenosis. Atherosclerotic calcifications of the left greater than right carotid bifurcations without
significant stenosis. Unchanged 2.3 cm hypodense nodule within the left hemithyroid, unchanged from prior.
I. Worsening of chronic dysarthria, new RUE ataxia concerning for recurrent stroke.
II. Cryptogenic subacute bihemispheric strokes with residual right LMN CN VII and CN palsies 10/2023.
III. R falcine/parietal convexity meningiomas.
IV. LINQ monitor placed 10/2023, has not demonstrated Afib thus far.
Plan
-Continue DAPT with aspirin 81mg and Plavix 75mg daily.
-Goal normotension.
-MRI brain noncontrast pending.
-NIHSS and neurological checks per unit guidelines.
-Provide patient with a stroke education packet.
-LDL goal<70. LDL is 48. Continue atorvastatin 40mg daily.
-Goal normoglycemia, hbA1c is 3.7.
-PT/OT/ST evaluations.
-DVT prophylaxis.
-Will follow pending results.
Subjective/Objective
Subjective Data
Date of Service: November 29, 2023
No acute events overnight. Patient reports ongoing worsened dysarthria and RUE ataxia since 11/28/23 and residual diplopia and R facial drooping since her stroke in 10/2023. She denies any headache, dizziness, changes in vision, swallowing
difficulty, numbness, weakness, chest pain, palpitations, and shortness of breath.
Objective Data
Vital Signs
Temp Pulse Resp BP Pulse Ox
98.3 F 93 18 137/57 94
11/29/23 12:06 11/29/23 12:06 11/29/23 12:06 11/29/23 12:06 11/29/23 12:06
Lab Results
11/29/23 08:15
11/29/23 08:15
Sodium 137 mmol/L (135-145) 11/29/23 08:15
Potassium 3.7 mmol/L (3.5-5.1) 11/29/23 08:15
BUN 12 mg/dl (7-17) 11/29/23 08:15
Glucose 114 mg/dl (70-99) H 11/29/23 08:15
Calcium 9.2 mg/dl (8.4-10.2) 11/29/23 08:15
Patient Allergies
adhesive Allergy (Verified 11/28/23 08:36)
Plastic bandaids cause itching
cat dander Allergy (Verified 11/28/23 08:36)
chest tightness,asthma
dog dander Allergy (Verified 11/28/23 08:36)
chest tightness,asthma
grass pollen Allergy (Verified 11/28/23 08:36)
chest tightness,asthma
lisinopril Allergy (Verified 11/28/23 08:36)
angioedema
perfume Allergy (Verified 11/28/23 08:36)
chest tightness,asthma
tree and shrub pollen Allergy (Verified 11/28/23 08:36)
chest tightness,asthma
LDL Level: Statin dose adjusted
Review of Systems
-
History Source: Patient
EENT: Negative Blurry Vision, Decreased Vision or Swallowing Difficulty
Respiratory: Negative Cough or Trouble Breathing
Cardiac: Negative Chest Pain or Palpitations
Abdomen/GI: Negative Nausea
Neuro: Ataxia and Speech Problem; Negative Dizzy, Headache, Weakness, Numbness or Tremors
Physical Exam
-
General: No Apparent Distress
Eyes: PERRLA; Negative No Ptosis (R ptosis)
HEENT: Normocephalic and Atraumatic
Neck: Full Range of Motion
Respiratory: No Dyspnea
Extremities: No Clubbing, No Cyanosis and No Edema
Extended Neurological Exam
Mood & Affect: Mood Unremarkable and Affect Unremarkable
Attention Span & Concentration: Awake, Alert and Interactive
Memory: Unremarkable (AAOx3) and Able to Recall
Tremor: Hand Tremor Absent and Head Tremor Absent
Involuntary Movement: None
Speech: Dysarthric
Cranial Nerve II: Left Eye: Pupillary Reactivity Unremarkable, Pupillary Size Unremarkable and Visual Willard Reduced (mild R hemianopia)
Cranial Nerve II: Right Eye: Pupillary Reactivity Unremarkable, Pupillary Size Unremarkable and Visual Willard Reduced (mild R hemianopia)
Cranial Nerves III, IV, : Extraocular Movement: Reduced (R eye slightly reduced abduction.)
Cranial Nerve V: Facial Sensation: Intact to Light Touch
Cranial Nerve VII: Facial Symmetry: Reduced (R entire face drooping)
Cranial Nerve VIII: Hearing: Grossly Reduced
Cranial Nerve XII: Tongue Protusion: Midline
Muscle Strength, Overall: Reduced on Right (RUE 5-/5, RLE 3/5 (reports chronic), LUE 5/5, LLE 4/5 (reports chronic))
Muscle Bulk & Tone: Bulk Unremarkable and Tone Unremarkable
Pronator Drift: Drift in Right Lower Extremity
Touch Sensation: Double Simultaneous Stimulation Unremarkable
Coordination: Negative Valymi-shhj-ucaxoq Testing Unremarkable (RUE ataxis)
Babinski Sign: Absent Bilaterally
Modified [place] Score (MRS)
-
Modified [place] Scale (mRS): Moderate disability. Requires some help, able to walk unassisted.
Score: 3
Data Reviewed
-
CT-A: Report Reviewed and Image Reviewed
CT Head: Report Reviewed and Image Reviewed
MRI Head: Pending
Labs: Report Reviewed
Lipid Profile: Report Reviewed
HgbA1C: Report Reviewed
Reviewed with: Physician, Patient and Family
Medications
-
Active Medications
Generic Name Dose Route Start Last Admin
Trade Name Freq PRN Reason Stop Dose Admin
Acetaminophen 650 mg 11/28/23 13:45
Acetaminophen 325 Mg Tablet PO 12/26/23 13:44
Q4HPRN PRN
mild pain/ANDRADE/temp> 100.4F
Artificial Tears 1 drops 11/28/23 20:00 11/29/23 12:58
Artificial Tears Pf (Refresh) 10 Drop Droperette RIGHT EYE 12/26/23 19:59 1 drops
Q4 VIRAL Administration
Aspirin 81 mg 11/29/23 08:00 11/29/23 08:17
Aspirin 81 Mg (Enteric Coated) Tablet PO 12/27/23 07:59 81 mg
DAILY VIRAL Administration
Atorvastatin Calcium 40 mg 11/29/23 18:00
Atorvastatin (Lipitor) 40 Mg Tablet PO 12/27/23 17:59
QPM VIRAL
Benzocaine/Menthol 1 lozenge 11/28/23 13:45
Benzocaine/Menthol Lozenge PO 12/26/23 13:44
Q4HPRN PRN
sore throat
Bisacodyl 10 mg 11/28/23 13:45
Bisacodyl 10 Mg Rectal Suppository RECTAL 12/26/23 13:44
[id number] PRN
constipation
Clopidogrel Bisulfate 75 mg 11/29/23 08:00 11/29/23 08:17
Clopidogrel 75 Mg Tablet PO 12/27/23 07:59 75 mg
DAILY VIRAL Administration
Cyanocobalamin 1,000 mcg 11/29/23 08:00 11/29/23 08:17
Cyanocobalamin 1,000 Mcg Tablet PO 12/27/23 07:59 1,000 mcg
DAILY VIRAL Administration
Ezetimibe 10 mg 11/28/23 22:00 11/28/23 20:46
Ezetimibe (Zetia) 10 Mg Tablet PO 12/26/23 21:59 10 mg
HS VIRAL Administration
Loratadine 10 mg 11/29/23 08:00 11/29/23 08:17
Loratadine 10 Mg Tablet PO 12/27/23 07:59 10 mg
DAILY VIRAL Administration
Ondansetron HCl 4 mg 11/28/23 13:45
Ondansetron 4 Mg/2 Ml Vial IV 12/26/23 13:44
Q6HPRN PRN
nausea and vomiting
Pantoprazole Sodium 40 mg 11/29/23 08:00 11/29/23 08:17
Pantoprazole 40 Mg Delayed Release Tablet PO 12/27/23 07:59 40 mg
DAILY VIRAL Administration
Polyethylene Glycol 17 grams 11/28/23 13:45
Polyethylene Glycol Powder 17 Grams Packet PO 12/26/23 13:44
DAILYPRN PRN
constipation
Potassium Chloride 10 meq 11/29/23 08:00 11/29/23 08:17
Potassium Chloride 10 Meq Extended Release Tablet PO 12/27/23 07:59 10 meq
DAILY VIRAL Administration
Fluticasone/Salmeterol 2 puff 11/28/23 20:00 11/29/23 07:39
Advair Hfa 45/21 Inhaler INH 12/26/23 19:59 2 puff
R BID VIRAL Administration
Protocol
Senna/Docusate Sodium 1 tablet 11/28/23 13:45
Docusate W/Senna (Nadira-Colace) Tablet PO 12/26/23 13:44
BIDPRN PRN
constipation
Home Medications
�Medication �Instructions �Recorded
bumetanide 2 mg tablet 2 mg PO DAILY Fluid 09/13/20
retention/Swelling ##0
potassium chloride 10 mEq 10 meq PO DAILY Electrolyte 11/06/23
tablet,extended release Repletion
pantoprazole 40 mg tablet,delayed 40 mg PO DAILY #30 tabs 11/10/23
release
polyethylene glycol 3350 17 gram 17 g PO DAILY #100 ea 11/10/23
oral powder packet (HealthyLax)
aspirin 81 mg tablet,delayed 81 mg PO DAILY CVA #30 tabs 11/25/23
release
atorvastatin 20 mg tablet 20 mg PO QPM cholesterol #30 tabs 11/25/23
benzocaine 6 mg-menthol 10 mg 1 isaiah PO Q4HPRN PRN sore throat 30 11/25/23
lozenges (Chloraseptic Sore Throat) days #30 ea
cyanocobalamin (vitamin B-12) 1,000 mcg PO DAILY Supplement 30 11/25/23
1,000 mcg tablet days #30 tabs
docusate sodium 100 mg capsule 100 mg PO DAILY bowel regimen 30 11/25/23
days #30 caps
ezetimibe 10 mg tablet 10 mg PO HS cholelesterol 30 days 11/25/23
#30 tabs
fluticasone propionate 45 2 puff inhalation R BID 30 days #1 11/25/23
mcg-salmeterol 21 mcg/actuation container
HFA inhaler
loratadine 10 mg tablet 10 mg PO DAILY Allergies 30 days 11/25/23
#30 tabs
acetaminophen 325 mg tablet 650 mg PO Q4HPRN PRN mild 11/28/23
pain/fever
bisacodyl 10 mg rectal suppository 10 mg MO DAILYPRN PRN IF NO BM ON 11/28/23
5TH DAY
carboxymethylcellulose sodium 1 % 1 drp RIGHT EYE Q4H dry eye 11/28/23
eye gel in a dropperette
(TheraTears)
heparin (porcine) 5,000 unit/mL 5,000 unit SC BID Blood clot 11/28/23
injection solution prevention/tx
magnesium hydroxide 400 mg/5 mL 2,400 mg PO [id number] PRN IF NO BM 11/28/23
oral suspension (Milk of Magnesia) ON 4TH DAY
sodium phosphates 19 gram-7 118 ml MO DAILYPRN PRN I FNO BM ON 11/28/23
gram/118 mL enema (Fleet Enema) 6TH DAY
NIH Stroke Score
Subsequent NIH Scale
Date of Subsequent NIH Scale: 11/29/23
Time of Subsequent NIH Scale: 11:15
NIH Stroke Score
Level of Consciousness: 0 - Alert
LOC Questions: 0-Answers both correctly
LOC Commands: 0-Performs both correctly
Best Horizontal Gaze: 1-Partial gaze palsy
Visual Willard: 1=Partial hemianopia
Facial Palsy: 3=Complete paralysis
Motor - Right Arm: 1=Drift < 10 seconds
Motor - Left Arm: 0=No drift 10 seconds
Motor - Right Le-Drift < 5 seconds
Motor - Left Le-Drift < 5 seconds
Limb Ataxia: 1-Present in one limb
Sensation: 0-Normal
Best Language: 0-No aphasia
Dysarthria: 1-Mild slurring
Extinction and Inattention: 0-No abnormality
Total Score:: 10
Modified [place] (mRS) Score
Modified Justice Scale (mRS): Moderate disability. Requires some help, able to walk unassisted.
Score: 3

Documented by User: Aquilino Patel MD 11/29/23 23:00
Today's Communication / Plan
-
83-year-old woman with h/o bilateral CVA, pontine CVA, right parietal meningioma ovarian CA, HTN, HLD, asthma, OA, lymphedema, SNHL, ambulatory dysfunction wheel chair bound who was admitted with worsening dysarthria since Wednesday AM around 5:15
AM.
MRI Brain revealed Multiple acute infarctions involving both the anterior and posterior intracranial circulation which are new from 11/07/2023 suggesting ACUTE EMBOLIC DISEASE (7.6 mm acute infarct in the left midbrain, 1.5 cm acute infarct in the
posterior right frontal lobe centrum semiovale, and 6.2 mm acute infarct in the superolateral right frontal lobe). consistent with embolism. Interval increase in cytotoxic edema within subacute infarcts in the right middle cerebellar peduncle.
PLAN: 1. Consider Eliquis
2. BP control
3. Lipitor
4. Speech therapy
Modified Justice Score (MRS)
-
Score: 3
NIH Stroke Score
NIH Stroke Score
Total Score:: 10
Modified [place] (mRS) Score
Score: 3
--- NOTE | 2023-11-29 16:24 | PTCARENOTE ---
Rec'd pt upon return from MRI. transferred in to bed. Denies pain. NIH scale performed and pt remains a 7. Reviewed with pt increase in Atorvastatin from 20mg to 40mg. Visitor at bedside.
[2023-11-29] MEDS: LIPITOR 40 MG PO (18:01)
[2023-11-29] MEDS: ZETIA 10 MG PO (21:46)
[2023-11-30] VITALS (8 sets, daily range): BP systolic 110–122; BP diastolic 49–63; PULSE 78–80; O2SAT 97
[2023-11-30] MEDS: REFRESH EYE DROPS (PF) 1 DROPS RIGHT EYE ×7 (00:45→23:14)
[2023-11-30] MEDS: ADVAIR HFA 45/21 MCG INHALER 2 PUFF INH ×2 (07:43→19:27)
[2023-11-30] MEDS: CLARITIN 10 MG PO (09:33)
[2023-11-30] MEDS: KCL 10 MEQ PO (09:33)
[2023-11-30] MEDS: ELIQUIS 5 MG PO ×2 (09:33→20:22)
[2023-11-30] MEDS: VITAMIN B-12 1000 MCG PO (09:33)
[2023-11-30] MEDS: PLAVIX 75 MG PO (09:33)
[2023-11-30] MEDS: PROTONIX 40 MG PO (09:33)
[2023-11-30] MEDS: ASPIR LOW (ENTERIC COATED) PO (09:35)
--- NOTE | 2023-11-30 10:53 | W.PN.HOSP.TC ---
Today's Communication/Plan
-
PMR consult
Discharge planning
Assessment / Plan
Assessment / Plan
Gen-AAOx3, NAD
HEENT-NC, AT, anicteric, clear oral mm
Neck-supple
CV-reg, no M, +S1/S2
Lungs-clear B/L
Abd-soft, NT, ND
Ext-no edema
Musculoskeletal-no cyanosis, clubbing
Skin-warm and dry
Neuro-right facial droop
Psych-calm, cooperative
Multiple acute ischemic infarcts -concerning for embolic strokes. Eliquis started. Continue Plavix. Aspirin discontinued. Discussed with neurology. No atrial fibrillation noted on Linq interrogation.
CTA head and neck without significant stenosis or aneurysm.
Recent echocardiogram 11/09/2023 showed LVEF 60 to 65%, mild concentric LVH, no regional wall motion abnormality, stage I diastolic dysfunction. No significant valvular disease.
CAM 11/10/2023 did not show source of embolism.
Right eye conjunctivitis -due to inability to close eyelid related to acute stroke. Cipro eyedrops ordered.
Normocytic Anemia
Splenomegaly
- OP GI f/u as per prior notes
Recent E. Coli UTI
Essential HTN on Bumex
- hold Bumex as BP lower
Hx of ovarian Ca
Hx of Asthma
HLD
Obesity due to excess calories
DVT ppx: SCDs pending MRI results
Code: Full
Dispo -needs rehab on discharge, acute versus subacute. Physiatry consulted. Continue PT/OT. Updated family at the bedside.
Anticipated Discharge: Within 24 hours
Subjective/Interval History
-
Date of Service: November 30, 2023
Patient seen and examined. No new complaints.
Objective Data
-
Vital Signs:
Vital Signs
Temp Pulse Resp BP Pulse Ox
97.6 F 74 16 117/59 97
11/30/23 07:05 11/30/23 07:47 11/30/23 07:47 11/30/23 07:05 11/30/23 07:47
I&O
11/29/23 11/30/23 12/01/23
06:59 06:59 06:59
Intake Total 240 / 240
Output Total 350 / 350 300 / 300
Balance -110 / -110 -300 / -300
Review of Systems
-
History Source: Patient
All other systems: Reviewed and negative
--- NOTE | 2023-11-30 11:29 | W.PN.NEURO.1 ---
Documented by User: Doris Martinez NP 11/30/23 12:21
Today's Communication / Plan
-
.
Neuro Assessment/Plan
Assessment
This is an 83-year-old woman who presented to on November 28, 2023 with report of worsened dysarthria. According to the patient she noted her speech being more slurred around 5:15 AM today. She was assisted to use the restroom and fell asleep
before waking up again at 630 am noticing inability to sit straight in her wheelchair. No reports of change in vision, strength or headache.
Ms. Garcia was hospitalized at in October and diagnosed with acute bihemispheric strokes as well as E. coli UTI. 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
-CT Head 11/28/23: No acute intracranial abnormality noted. Stable chronic findings as detailed above. ASPECTS 10.
-CTA head/neck 11/28/23: CTA Head: No large vessel occlusion. No high-grade proximal stenosis. No aneurysm. CTA Neck: No significant arterial stenosis. Atherosclerotic calcifications of the left greater than right carotid bifurcations without
significant stenosis. Unchanged 2.3 cm hypodense nodule within the left hemithyroid, unchanged from prior.
-MRI brain 11/29/23: MULTIPLE ACUTE ISCHEMIC INFARCTS involving both the anterior and posterior intracranial circulation which are new from 11/07/2023 suggesting ACUTE EMBOLIC DISEASE (7.6 mm acute infarct in the left midbrain, 1.5 cm acute infarct
in the posterior right frontal lobe centrum semiovale, and 6.2 mm acute infarct in the superolateral right frontal lobe). MULTIPLE SUBACUTE ISCHEMIC INFARCTS in both the anterior and posterior intracranial circulation consistent with SUBACUTE
EMBOLIC DISEASE. Interval increase in CYTOTOXIC EDEMA within subacute infarcts in the right middle cerebellar peduncle. Mild diffuse cerebral and cerebellar volume loss.
I. MRI brain demonstrates multiple acute ischemic infarcts in bilateral hemispheres suggestive of acute embolic source, producing patient's dysarthria and RUE ataxia. Second cryptogenic embolic-appearing stroke in less than one month.
II. Cryptogenic subacute bihemispheric strokes with residual right LMN CN VII and CN palsies 10/2023.
III. R falcine/parietal convexity meningiomas.
IV. LINQ monitor placed 10/2023, has not demonstrated Afib thus far. CAM 11/10/23 unremarkable.
V. Left thyroid nodule.
Plan
-Per Dr. Patel, initiate Eliquis 5mg BID and continue Plavix 75mg daily for stroke prevention. Discontinue aspirin.
-Goal normotension.
-Physiatry evaluation.
-Consideration for further workup to r/o malignancy causing hypercoagulable state; CT chest/abd/pelvis, repeat MRI brain w/ and w/o contrast
-NIHSS and neurological checks per unit guidelines.
-Provide patient with a stroke education packet.
-LDL goal<70. LDL is 48. Continue atorvastatin 40mg daily.
-Goal normoglycemia, hbA1c is 3.7.
-PT/OT/ST evaluations.
-DVT prophylaxis.
-Patient will need outpatient follow-up with Neurology, may see the [facility] or one of the physicians.
Subjective/Objective
Subjective Data
Date of Service: November 30, 2023
No acute events overnight. Patient with ongoing worsened dysarthria and RUE ataxia, new from previous stroke.
Objective Data
Vital Signs
Temp Pulse Resp BP Pulse Ox
97.7 F 80 20 110/54 97
11/30/23 11:11 11/30/23 11:11 11/30/23 11:11 11/30/23 11:11 11/30/23 11:24
Lab Results
11/29/23 08:15
11/29/23 08:15
Sodium 137 mmol/L (135-145) 11/29/23 08:15
Potassium 3.7 mmol/L (3.5-5.1) 11/29/23 08:15
BUN 12 mg/dl (7-17) 11/29/23 08:15
Glucose 114 mg/dl (70-99) H 11/29/23 08:15
Calcium 9.2 mg/dl (8.4-10.2) 11/29/23 08:15
Patient Allergies
adhesive Allergy (Verified 11/28/23 08:36)
Plastic bandaids cause itching
cat dander Allergy (Verified 11/28/23 08:36)
chest tightness,asthma
dog dander Allergy (Verified 11/28/23 08:36)
chest tightness,asthma
grass pollen Allergy (Verified 11/28/23 08:36)
chest tightness,asthma
lisinopril Allergy (Verified 11/28/23 08:36)
angioedema
perfume Allergy (Verified 11/28/23 08:36)
chest tightness,asthma
tree and shrub pollen Allergy (Verified 11/28/23 08:36)
chest tightness,asthma
LDL Level: Statin dose adjusted
Review of Systems
-
History Source: Patient
Respiratory: Negative Cough or Trouble Breathing
Abdomen/GI: Negative Nausea
Neuro: Weakness, Ataxia and Speech Problem; Negative Dizzy, Headache, Numbness or Tremors
Physical Exam
-
General: No Apparent Distress
Eyes: PERRLA; Negative No Ptosis (R ptosis)
HEENT: Normocephalic and Atraumatic
Neck: Full Range of Motion
Respiratory: No Dyspnea
GI: Non-distended
Extremities: No Clubbing, No Cyanosis and No Edema
Psych: Unremarkable
Extended Neurological Exam
Mood & Affect: Mood Unremarkable and Affect Unremarkable
Attention Span & Concentration: Awake, Alert and Interactive
Memory: Unremarkable and Able to Recall
Tremor: Hand Tremor Absent and Head Tremor Absent
Involuntary Movement: None
Speech: Dysarthric
Cranial Nerve II: Left Eye: Pupillary Reactivity Unremarkable, Pupillary Size Unremarkable and Visual Willard Reduced (slight R hemianopia)
Cranial Nerve II: Right Eye: Pupillary Reactivity Unremarkable, Pupillary Size Unremarkable and Visual Willard Reduced (slight R hemianopia)
Cranial Nerves III, IV, : Extraocular Movement: Nystagmus with Extreme Gaze to Right; Negative Extraocular Movement Full in all Directions (R eye CN 6 palsy)
Cranial Nerve V: Facial Sensation: Intact to Light Touch
Cranial Nerve VII: Facial Symmetry: Reduced (complete R facial drooping)
Cranial Nerve VIII: Hearing: Grossly Reduced
Cranial Nerve XII: Tongue Protusion: Midline
Muscle Strength, Overall: Reduced on Right (RUE 5-/5, RLE 3/5) and Reduced on Left (LLE 4/5, LUE 5/5)
Muscle Bulk & Tone: Bulk Unremarkable and Tone Unremarkable
Pronator Drift: No Drift in Upper Extremities, Drift in Left Lower Extremity and Drift in Right Lower Extremity
Touch Sensation: Double Simultaneous Stimulation Unremarkable
Coordination: Negative [id number] Testing Unremarkable (RUE ataxia)
Babinski Sign: Absent Bilaterally
Modified Justice Score (MRS)
-
Modified Bryan Scale (mRS): Moderately severe disability. Unable to attend to bodily needs/walk.
Score: 4
Data Reviewed
-
CT-A: Report Reviewed and Image Reviewed
CT Head: Report Reviewed and Image Reviewed
MRI Head: Report Reviewed and Image Reviewed
Labs: Report Reviewed
Lipid Profile: Report Reviewed
HgbA1C: Report Reviewed
Reviewed with: Physician, Patient and Family
Medications
-
Active Medications
Generic Name Dose Route Start Last Admin
Trade Name Freq PRN Reason Stop Dose Admin
Acetaminophen 650 mg 11/28/23 13:45
Acetaminophen 325 Mg Tablet PO 12/26/23 13:44
Q4HPRN PRN
mild pain/ANDRADE/temp> 100.4F
Apixaban 5 mg 11/30/23 08:30 11/30/23 09:33
Apixaban (Eliquis) 5 Mg Tablet PO 12/28/23 08:29 5 mg
BID VIRAL Administration
Artificial Tears 1 drops 11/28/23 20:00 11/30/23 09:34
Artificial Tears Pf (Refresh) 10 Drop Droperette RIGHT EYE 12/26/23 19:59 1 drops
Q4 VIRAL Administration
Atorvastatin Calcium 40 mg 11/29/23 18:00 11/29/23 18:01
Atorvastatin (Lipitor) 40 Mg Tablet PO 12/27/23 17:59 40 mg
QPM VIRAL Administration
Benzocaine/Menthol 1 lozenge 11/28/23 13:45
Benzocaine/Menthol Lozenge PO 12/26/23 13:44
Q4HPRN PRN
sore throat
Bisacodyl 10 mg 11/28/23 13:45
Bisacodyl 10 Mg Rectal Suppository RECTAL 12/26/23 13:44
[id number] PRN
constipation
Ciprofloxacin 0 drop 11/30/23 16:00
Ciprofloxacin 0.3% (Ophthalmic Solution) Bottle OPHTH 12/10/23 15:59
Q4 VIRAL
Clopidogrel Bisulfate 75 mg 11/29/23 08:00 11/30/23 09:33
Clopidogrel 75 Mg Tablet PO 12/27/23 07:59 75 mg
DAILY VIRAL Administration
Cyanocobalamin 1,000 mcg 11/29/23 08:00 11/30/23 09:33
Cyanocobalamin 1,000 Mcg Tablet PO 12/27/23 07:59 1,000 mcg
DAILY VIRAL Administration
Ezetimibe 10 mg 11/28/23 22:00 11/29/23 21:46
Ezetimibe (Zetia) 10 Mg Tablet PO 12/26/23 21:59 10 mg
HS VIRAL Administration
Loratadine 10 mg 11/29/23 08:00 11/30/23 09:33
Loratadine 10 Mg Tablet PO 12/27/23 07:59 10 mg
DAILY VIRAL Administration
Ondansetron HCl 4 mg 11/28/23 13:45
Ondansetron 4 Mg/2 Ml Vial IV 12/26/23 13:44
Q6HPRN PRN
nausea and vomiting
Pantoprazole Sodium 40 mg 11/29/23 08:00 11/30/23 09:33
Pantoprazole 40 Mg Delayed Release Tablet PO 12/27/23 07:59 40 mg
DAILY VIRAL Administration
Polyethylene Glycol 17 grams 11/28/23 13:45
Polyethylene Glycol Powder 17 Grams Packet PO 12/26/23 13:44
DAILYPRN PRN
constipation
Potassium Chloride 10 meq 11/29/23 08:00 11/30/23 09:33
Potassium Chloride 10 Meq Extended Release Tablet PO 12/27/23 07:59 10 meq
DAILY VIRAL Administration
Fluticasone/Salmeterol 2 puff 11/28/23 20:00 11/30/23 07:43
Advair Hfa 45/21 Inhaler INH 12/26/23 19:59 2 puff
R BID VIRAL Administration
Protocol
Senna/Docusate Sodium 1 tablet 11/28/23 13:45
Docusate W/Senna (Nadira-Colace) Tablet PO 12/26/23 13:44
BIDPRN PRN
constipation
Home Medications
�Medication �Instructions �Recorded
bumetanide 2 mg tablet 2 mg PO DAILY Fluid 09/13/20
retention/Swelling ##0
potassium chloride 10 mEq 10 meq PO DAILY Electrolyte 11/06/23
tablet,extended release Repletion
pantoprazole 40 mg tablet,delayed 40 mg PO DAILY #30 tabs 11/10/23
release
polyethylene glycol 3350 17 gram 17 g PO DAILY #100 ea 11/10/23
oral powder packet (HealthyLax)
aspirin 81 mg tablet,delayed 81 mg PO DAILY CVA #30 tabs 11/25/23
release
atorvastatin 20 mg tablet 20 mg PO QPM cholesterol #30 tabs 11/25/23
benzocaine 6 mg-menthol 10 mg 1 isaiah PO Q4HPRN PRN sore throat 30 11/25/23
lozenges (Chloraseptic Sore Throat) days #30 ea
cyanocobalamin (vitamin B-12) 1,000 mcg PO DAILY Supplement 30 11/25/23
1,000 mcg tablet days #30 tabs
docusate sodium 100 mg capsule 100 mg PO DAILY bowel regimen 30 11/25/23
days #30 caps
ezetimibe 10 mg tablet 10 mg PO HS cholelesterol 30 days 11/25/23
#30 tabs
fluticasone propionate 45 2 puff inhalation R BID 30 days #1 11/25/23
mcg-salmeterol 21 mcg/actuation container
HFA inhaler
loratadine 10 mg tablet 10 mg PO DAILY Allergies 30 days 11/25/23
#30 tabs
acetaminophen 325 mg tablet 650 mg PO Q4HPRN PRN mild 11/28/23
pain/fever
bisacodyl 10 mg rectal suppository 10 mg DE DAILYPRN PRN IF NO BM ON 11/28/23
5TH DAY
carboxymethylcellulose sodium 1 % 1 drp RIGHT EYE Q4H dry eye 11/28/23
eye gel in a dropperette
(TheraTears)
heparin (porcine) 5,000 unit/mL 5,000 unit SC BID Blood clot 11/28/23
injection solution prevention/tx
magnesium hydroxide 400 mg/5 mL 2,400 mg PO [id number] PRN IF NO BM 11/28/23
oral suspension (Milk of Magnesia) ON 4TH DAY
sodium phosphates 19 gram-7 118 ml DE DAILYPRN PRN I FNO BM ON 11/28/23
gram/118 mL enema (Fleet Enema) 6TH DAY
NIH Stroke Score
Subsequent NIH Scale
Date of Subsequent NIH Scale: 11/30/23
Time of Subsequent NIH Scale: 08:45
NIH Stroke Score
Level of Consciousness: 0 - Alert
LOC Questions: 0-Answers both correctly
LOC Commands: 0-Performs both correctly
Best Horizontal Gaze: 1-Partial gaze palsy
Visual Willard: 1=Partial hemianopia
Facial Palsy: 3=Complete paralysis
Motor - Right Arm: 0=No drift 10 seconds
Motor - Left Arm: 0=No drift 10 seconds
Motor - Right Le-Drift < 5 seconds
Motor - Left Le-Drift < 5 seconds
Limb Ataxia: 1-Present in one limb
Sensation: 0-Normal
Best Language: 0-No aphasia
Dysarthria: 1-Mild slurring
Extinction and Inattention: 0-No abnormality
Total Score:: 9

Documented by User: Aquilino Patel MD 11/30/23 22:25
Today's Communication / Plan
-
83-year-old woman with h/o bilateralembolic CVA who was admitted with worsening dysarthria and ataxia: inability to sit straight in her wheelchair. No focal weakness of extremities other than Right facial weakness.
PLAN: Eliquis % mg BID
Plavix 75 mg daily
Lipitor
Speech therapy
PT/OT
Consult Physiatry
Modified Bryan Score (MRS)
-
Score: 4
NIH Stroke Score
NIH Stroke Score
Total Score:: 9
[2023-11-30] MEDS: CILOXAN 0.3% OPHTHALMIC SOLUTION 1 DROP OPHTH ×4 (11:30→23:15)
--- NOTE | 2023-11-30 15:18 | W.DS.TRANS ---
DC Summary - Research Technician
-
Discharge Instructions:
Discharge Diagnosis/Procedures Embolic strokes
Diet Low Cholesterol,Low Fat,2 Gram Sodium
Activity With assistance
Driving Restrictions No driving
Bathing Restrictions None
Instructions:
Stand-Alone Forms:
Changes to Home Medications: Yes
Discharge Medications:
DC Medications w/original date entered in [employer]
bumetanide 2 mg tablet 2 mg PO DAILY Fluid retention/Swelling ##0 09/13/20
potassium chloride 10 mEq tablet,extended release 10 meq PO DAILY Electrolyte Repletion 11/06/23
pantoprazole 40 mg tablet,delayed release 40 mg PO DAILY #30 tabs 11/10/23
polyethylene glycol 3350 17 gram oral powder packet (HealthyLax) 17 g PO DAILY #100 ea 11/10/23
cyanocobalamin (vitamin B-12) 1,000 mcg tablet 1,000 mcg PO DAILY Supplement 30 days #30 tabs 11/25/23
docusate sodium 100 mg capsule 100 mg PO DAILY bowel regimen 30 days #30 caps 11/25/23
ezetimibe 10 mg tablet 10 mg PO HS cholelesterol 30 days #30 tabs 11/25/23
fluticasone propionate 45 mcg-salmeterol 21 mcg/actuation HFA inhaler 2 puff inhalation R BID 30 days #1 container 11/25/23
loratadine 10 mg tablet 10 mg PO DAILY Allergies 30 days #30 tabs 11/25/23
acetaminophen 325 mg tablet 650 mg PO Q4HPRN PRN mild pain/fever 11/28/23
bisacodyl 10 mg rectal suppository 10 mg VT DAILYPRN PRN IF NO BM ON 5TH DAY 11/28/23
carboxymethylcellulose sodium 1 % eye gel in a dropperette (TheraTears) 1 drp RIGHT EYE Q4H dry eye 11/28/23
magnesium hydroxide 400 mg/5 mL oral suspension (Milk of Magnesia) 2,400 mg PO [id number] PRN IF NO BM ON 4TH DAY 11/28/23
sodium phosphates 19 gram-7 gram/118 mL enema (Fleet Enema) 118 ml VT DAILYPRN PRN I FNO BM ON 6TH DAY 11/28/23
apixaban 5 mg tablet (Eliquis) 5 mg PO BID #0 tabs 11/30/23
atorvastatin 40 mg tablet 40 mg PO QPM #0 tabs 11/30/23
ciprofloxacin HCl 0.3 % eye drops 1 drp ophthalmic (eye) Q4 #0 mL 11/30/23
clopidogrel 75 mg tablet 75 mg PO DAILY #0 tabs 11/30/23
Home Medication Changes
Stop aspirin
Pending Results: No
[2023-11-30] MEDS: LIPITOR 40 MG PO (17:18)
[2023-11-30] MEDS: ZETIA 10 MG PO (20:23)
[2023-12-01 03:00] VITALS: BP 113/56
[2023-12-01] MEDS: CILOXAN 0.3% OPHTHALMIC SOLUTION 1 DROP OPHTH ×2 (03:37→09:48)
[2023-12-01] MEDS: REFRESH EYE DROPS (PF) 1 DROPS RIGHT EYE ×2 (03:37→09:49)
--- NOTE | 2023-12-01 04:05 | DOWNTIME ---
There was a [employer] Downtime on 12/01/2023 from 0100 to 12/01/2023 at 0355. Downtime documentation of patient's care, including medication administrations, has been reconciled in the electronic record per guidelines. Refer to the
patient's paper chart under the miscellaneous tab to see printed paper medication records and downtime forms.
[2023-12-01] MEDS: ADVAIR HFA 45/21 MCG INHALER 2 PUFF INH (07:56)
[2023-12-01 08:04] VITALS: BP 125/61
--- NOTE | 2023-12-01 09:44 | CM ---
Addendum entered by Susanne Snowden 12/01/23 11:36:
[facility] Report: [phone]
[facility]
Original Note:
DAVE met with Kayley and her friend at bedside yesterday. Kayley is a resident of [facility]; she was at [facility] after discharge from in October 2023, transitioned to [facility] and currently has a bed hold at the facility. TRANSPORTATION AGENT she
was assisted with use of walker and cane immediately prior to admission.
Pt was referred to [facility] for admission, however [facility] declined admission since she had been there recently, and felt a longer SNF admission may be more beneficial for Kayley. Kayley was agreeable to returning to the bed being held at [facility].
PASRR updated and sent via [facility] to [facility].
CM to coordinate discharge via w/c van this am for return to [facility].
[2023-12-01] MEDS: VITAMIN B-12 1000 MCG PO (09:49)
[2023-12-01] MEDS: PLAVIX 75 MG PO (09:49)
[2023-12-01] MEDS: CLARITIN 10 MG PO (09:49)
[2023-12-01] MEDS: ELIQUIS 5 MG PO (09:49)
[2023-12-01] MEDS: PROTONIX 40 MG PO (09:49)
[2023-12-01] MEDS: KCL 10 MEQ PO (09:49)
--- NOTE | 2023-12-01 10:01 | W.PN.HOSP.TC ---
Today's Communication/Plan
-
Discharge
Assessment / Plan
Assessment / Plan
Gen-AAOx3, NAD
HEENT-NC, AT, anicteric, clear oral mm
Neck-supple
CV-reg, no M, +S1/S2
Lungs-clear B/L
Abd-soft, NT, ND
Ext-no edema
Musculoskeletal-no cyanosis, clubbing
Skin-warm and dry
Neuro-right facial droop
Psych-calm, cooperative
Multiple acute ischemic infarcts -concerning for embolic strokes. Eliquis started. Continue Plavix. Aspirin discontinued. Discussed with neurology. No atrial fibrillation noted on Linq interrogation.
CTA head and neck without significant stenosis or aneurysm.
Recent echocardiogram 11/09/2023 showed LVEF 60 to 65%, mild concentric LVH, no regional wall motion abnormality, stage I diastolic dysfunction. No significant valvular disease.
CAM 11/10/2023 did not show source of embolism.
Right eye conjunctivitis -due to inability to close eyelid related to acute stroke. Cipro eyedrops ordered.
Normocytic Anemia
Splenomegaly
- OP GI f/u as per prior notes
Recent E. Coli UTI
Essential HTN on Bumex
- hold Bumex as BP lower
Hx of ovarian Ca -surgically cured 2011 [facility].. Stage I at the time.
Hx of Asthma
HLD
Obesity due to excess calories
Code: Full
Dispo -medically stable for discharge to SNF.
35 minutes spent in discharge process.
Anticipated Discharge: Today
Subjective/Interval History
-
Date of Service: December 01, 2023
Patient seen and examined. No new complaints.
Objective Data
-
Vital Signs:
Vital Signs
Temp Pulse Resp BP Pulse Ox
97.4 F 77 18 125/61 99
12/01/23 08:04 12/01/23 08:04 12/01/23 08:04 12/01/23 08:04 12/01/23 08:04
I&O
11/30/23 12/01/23 12/02/23
06:59 06:59 06:59
Intake Total 1320 / 1320
Output Total 300 / 300
Balance -300 / -300 1320 / 1320
Review of Systems
-
History Source: Patient
All other systems: Reviewed and negative
--- NOTE | 2023-12-01 10:03 | W.DS.TRANS ---
DC Summary - Inspector Materials And Processes
-
Discharge Instructions:
Discharge Diagnosis/Procedures Embolic strokes
Diet Low Cholesterol,Low Fat,2 Gram Sodium
Activity With assistance
Driving Restrictions No driving
Bathing Restrictions None
Instructions:
Stand-Alone Forms:
Changes to Home Medications: No
Discharge Medications:
DC Medications w/original date entered in [employer]
bumetanide 2 mg tablet 2 mg PO DAILY Fluid retention/Swelling ##0 09/13/20
potassium chloride 10 mEq tablet,extended release 10 meq PO DAILY Electrolyte Repletion 11/06/23
pantoprazole 40 mg tablet,delayed release 40 mg PO DAILY #30 tabs 11/10/23
polyethylene glycol 3350 17 gram oral powder packet (HealthyLax) 17 g PO DAILY #100 ea 11/10/23
cyanocobalamin (vitamin B-12) 1,000 mcg tablet 1,000 mcg PO DAILY Supplement 30 days #30 tabs 11/25/23
docusate sodium 100 mg capsule 100 mg PO DAILY bowel regimen 30 days #30 caps 11/25/23
ezetimibe 10 mg tablet 10 mg PO HS cholelesterol 30 days #30 tabs 11/25/23
fluticasone propionate 45 mcg-salmeterol 21 mcg/actuation HFA inhaler 2 puff inhalation R BID 30 days #1 container 11/25/23
loratadine 10 mg tablet 10 mg PO DAILY Allergies 30 days #30 tabs 11/25/23
acetaminophen 325 mg tablet 650 mg PO Q4HPRN PRN mild pain/fever 11/28/23
bisacodyl 10 mg rectal suppository 10 mg MI DAILYPRN PRN IF NO BM ON 5TH DAY 11/28/23
carboxymethylcellulose sodium 1 % eye gel in a dropperette (TheraTears) 1 drp RIGHT EYE Q4H dry eye 11/28/23
magnesium hydroxide 400 mg/5 mL oral suspension (Milk of Magnesia) 2,400 mg PO [id number] PRN IF NO BM ON 4TH DAY 11/28/23
sodium phosphates 19 gram-7 gram/118 mL enema (Fleet Enema) 118 ml MI DAILYPRN PRN I FNO BM ON 6TH DAY 11/28/23
apixaban 5 mg tablet (Eliquis) 5 mg PO BID #0 tabs 11/30/23
atorvastatin 40 mg tablet 40 mg PO QPM #0 tabs 11/30/23
ciprofloxacin HCl 0.3 % eye drops 1 drp ophthalmic (eye) Q4 #0 mL 11/30/23
clopidogrel 75 mg tablet 75 mg PO DAILY #0 tabs 11/30/23
Home Medication Changes
Pending Results: No
[2023-12-01 11:34] VITALS: BP 126/62
== END 2023-12-01 13:01 | DRG 64 ==
LOC: 4 EAST ACU 12:24
PROVIDERS: Nurse Practitioner; ADMITTING PHYSICIAN Internal Medicine; ATTENDING PHYSICIAN Hospitalist; CONSULT PHYSICIAN Psychiatry & Neurology Neurology; EMERGENCY PHYSICIAN Emergency Medicine; FAMILY PHYSICIAN Family Medicine
DX: I63.40 Cerebral infarction due to embolism of unspecified cerebral artery (principal); G93.6 Cerebral edema; I10 Essential (primary) hypertension; E78.5 Hyperlipidemia, unspecified; H10.9 Unspecified conjunctivitis; D64.9 Anemia, unspecified
CPT/HCPCS: 70450; 70496; 70498; 70551; 80048; 80053; 81003; 81015; 82962; 84484; 85025; 85027; 87070; 87086; 92610; 93005; 94640; 97116; 97162; 97166; 97535; 99285; Q9967

== ENCOUNTER 2023-12-31 14:05 | Inpatient (IN) | payer MEDICARE, OTHER, SELFPAY ==
[2023-12-31] VITALS (13 sets, daily range): BP systolic 91–119; BP diastolic 47–88; BMI 32.9
[2023-12-31 09:58] LABS: Glucose - Point of Care 143 mg/dl (70-99)
--- NOTE | 2023-12-31 10:21 | ED.CVA ---
History of Present Illness
General
Chief Complaint: CVA/TIA Symptoms
Source: patient and ambulance crew
Time Seen by Provider: 12/31/23 09:39
Onset of Stroke Symptoms
Onset of symptoms known: Yes
Date of onset of symptoms: 12/31/23
History of Present Illness
History of Present Illness:
83-year-old female with a recent history of suspected embolic diseases who presents after she states she suddenly felt like she leaned to the left side and was weak but also that her vision was not normal. She states that she could not speak.
Symptoms began about 30 minutes prior to arrival. Patient was seen briefly on arrival and taken emergently to CT scan. Her speech improved while on CT scan. On assessment in the room, the patient reports feeling better and back to baseline. She
is on Eliquis and did not take it this morning yet. Patient denies any symptoms in her extremities. She does not she felt like she had numbness in her head. No headache. No dizziness. No chest pain. The patient does have normal right facial
droop and vision changes of the right eye from previous stroke
Past History
Past History
ED Past Medical History: Asthma, CVA, HTN, Other (Ovarian CA) and Other (lymphedema )
ED Past Surgical History: Gynecological and Orthopedic (bilateral knee replacement and right hip replacement )
Social History
Tobacco: Non-smoker
Alcohol: None
Drug: None
Personal: Single
Living: alone
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
Family History
Family History: Other (Noncontributory)
Phy Exam
Physical Exam
Physical Exam:
CONSTITUTIONAL Patient alert and oriented to person, place and time. Well-appearing. Vital signs reviewed.
HEAD atraumatic, normocephalic.
EYES Extraocular muscles intact, slight scleral injection noted to the right
NECK normal range of motion, Trachea midline, no jugular venous distention.
RESPIRATORY CHEST No respiratory distress noted, Chest expansion equal, Bilateral breath sounds clear.
CARDIOVASCULAR regular rate and rhythm, Heart sounds normal.
ABDOMEN abdomen nontender, Bowel sounds normal. No distention.
BACK normal inspection, no obvious deformities
UPPER EXTREMITY range of motion normal, Motor strength normal, no cyanosis, no edema.
LOWER EXTREMITY range of motion normal, Motor strength normal, no cyanosis
NEURO speech slightly slurred from right facial droop but otherwise clear and patient reports at baseline. Right 7th nerve palsy noted. No pronator drift. Leg strength normal.
SKIN skin warm, dry, and normal in color.
Course
Orders/Labs/Results
Orders:
Orders
12/31/23 09:39
CT HEAD STROKE ALERT W/o Cont Urgent
Comment:
Reason For Exam: dysarthria
12/31/23 09:40
Electrocardiogram (*1) Stat
Reason for Study: Other
Other Reason for Exam: neuro symptoms
Bedside Glucose- Treatment ONCE
Cardiac Monitoring- Treatment ONCE
EKG- Treatment ONCE
12/31/23 10:03
Complete Blood Count/With Diff Urgent
Comprehensive Metabolic Panel Urgent
Manual Differential Urgent
Troponin I Urgent
12/31/23 10:42
Apixaban [Eliquis] 5 mg PO NOW STA
Clopidogrel Bisulfate [Plavix] 75 mg PO NOW STA
12/31/23 11:02
Aspirin Chewable [Low Strength Aspirin] 81 mg PO NOW STA
12/31/23 11:45
MR Brain W/o & With Contrast Routine
Comment:
Reason For Exam: stroke
OK for patient to be off Cardiac Monitoring for MRI: Yes
Recent pill cam endoscopy?: No
12/31/23 13:42
CT Chest/abd/pel W Iv Cont Routine
Comment: hx ovarian CA s/p surgical cure
Reason For Exam: cancer screening; cryptogenic strokes
12/31/23 13:47
Admit/Transfer Patient As Directed
Co-Sign Provider:
Level of Care: Inpatient admission
Assign to:: Telemetry
Physician / Group: Nikky Woodward
Diagnosis: bilateral CVA
Reason for Telemetry: CVA/TIA
Date to Stop Telemetry: 01/03/24
Time to Stop Telemetry: 11:00
Reason for Hospitalization: bilateral CVA
Expected length of stay greater than two midnights?: Yes
ELOS- Estimated Length of Stay in days: 3
I certify the patient meets the requirements for IP care: Yes
PRN Pain Medication Management As Directed
May give lesser potent ordered pain med per pt: Yes
preference::
Protocol:: Medication orders for pain may be administered in a
manner that supports deferring to patient preference
when the pt is:
- Requesting an ordered lesser potent pain medication.
Least to most potent pain medications are defined
as: acetaminophen < NSAID < tramadol < opioids
(morphine, oxycodone, hydromorphone).
- Requesting a lesser dose of the same medication IF
ORDERED.
- Requesting a less intrusive route of administration
if both routes are prescribed by the provider (PO <
IV).
12/31/23 13:48
Code Status As Directed
Resuscitation Status: Full Code
01/01/24 06:00
Hgba1c [Glycohemoglobin (HgbA1c)] IN AM
01/03/24 11:00
DC Protocol for Telemetry ONCE
Abnormal Lab Results
12/31/23 12/31/23
09:56 10:03
WBC 3.3 L 10^3/uL
(4.8-10.8)
RBC 3.08 L 10^6/uL
(4.20-5.40)
Hgb 9.7 L g/dL
(12.0-16.0)
Hct 29.2 L %
(37.0-47.0)
MCH 31.5 H pg
(27.0-31.0)
RDW 16.1 H %
(11.5-14.5)
Lymphocytes (Manual) 16 L %
(20-51)
Monocytes (Manual) 10 H %
(2-9)
Chloride 96 L mmol/L
(98-107)
Carbon Dioxide 33 H mmol/L
(22-30)
Glucose 158 H mg/dl
(70-99)
Total Bilirubin 3.6 H mg/dl
(0.2-1.3)
POC Glucose 143 H mg/dl
(70-99)
12/31/23 10:03
12/31/23 10:03
Vital Signs
Initial and Last Documented VS:
Initial Vital Signs
Temp Pulse Resp BP Pulse Ox
98.1 F 90 20 119/75 97
12/31/23 09:55 12/31/23 09:55 12/31/23 09:55 12/31/23 09:55 12/31/23 09:55
Last Documented Vital Signs
Temp Pulse Resp BP Pulse Ox
98.1 F 85 17 110/55 99
12/31/23 09:55 12/31/23 14:30 12/31/23 14:30 12/31/23 14:00 12/31/23 14:30
MDM/Problems Addressed
MDM/Problems Addressed:
Acute CVA, subacute CVA, chronic facial droop, chronic lymphedema
*Radiology
Radiology exam reviewed: preliminary read by ED provider (No noted intracranial hemorrhage) and radiology read reviewed
*Pulse Oximetry
Patient hypoxic: no
*EKG
Interpreted by ED Provider?: Yes
Interpretation: normal
Rate: normal
Rhythm: sinus
[place]: normal axis
QRS Pattern: poor R-wave progression
Ischemia: no ischemia
*Yield Clerk Interpretation
Rate: normal
Interpretation: normal
Rhythm: sinus
*Critical Care Note
Total Time (30-74mins, 75-104mins- exclusive of procedures): 30 minutes
Data Reviewed
Review of Other/Old Records Reveals: Testing (Prior MRI reviewed) and Discharge Summary (Recent discharge summary reviewed)
Source: patient and ambulance crew
Prescriptions/Medications Considered But Not Given:
Consider tPA but symptoms resolving and patient on Eliquis. Neurology agrees
Patient Management
Discussion with other providers: Hospitalist, Engraving Press Operator (Case discussed with neurology) and Radiologist (Case discussed with Dr. Royal)
Escalation/DeEscalation of care consider admission/obs:
Awake and alert, no tPA in light of improving symptoms and being on Eliquis. Symptoms are improving. Did not take her Eliquis today. Will give her her Plavix and Eliquis
ED Attending Note
-
Portions of this chart may have been created with voice recognition software.� Occasional wrong word or��sound alike� substitutions may have occurred due to the inherent limitations of voice recognition software.
Discharge Plan
Departure
Patient Disposition: Admit
Date of Disposition: 12/31/23
Time of Disposition: 10:30
Admit to: Telemetry
Presentation/result/management discussed w/ accepting MD/DO: Hospitalist
Discharge Problem:
Acute cerebrovascular accident (CVA)
Interventions
Interventions:
*Risk Screen - Suicide Last Done: 12/31/23 10:00
*General Assessment Last Done: 12/31/23 10:00
*Neglect/Abuse Screening Last Done: 12/31/23 10:00
*ED COVID-19 Vaccine History Last Done: 12/31/23 10:00
ED- Pulmonary Assessment Last Done: 12/31/23 10:37
ED- Neurological Assessment Last Done: 12/31/23 11:00
ED- Cardiac Assessment Last Done: 12/31/23 10:37
ED Swallowing Screen Last Done: 12/31/23 11:20
--- NOTE | 2023-12-31 10:24 | CON.NEURO4 ---
Addendum entered and electronically signed by Jeremias Carrero MD 12/31/23 16:46:
Studies reviewed.
I have personally examined the patient. I reviewed and agree with the CYLINDER PRESS FEEDER's Note.
My addenda:
Awake, alert, interactive. No acute distress.
Speech initially thick, then clearing.
Follows 2-step requests w/o difficulty. No tremor.
Extra-ocular movements grossly intact.
Facial movements significantly reduced on the right compared with left. Hearing intact to normal conversational volume.
Normal UE movements bilaterally.
Neck: full ROM.
Chest: no dyspnea
Heart: no JVD
Ext: (-) Clubbing, (-) Cyanosis, (-) Edema
IMPRESSIONS/RECOMMENDATIONS:
Abrupt onset of speech dysfunction, transient
Most likely secondary to TIA despite therapy at highest level of prevention with the use of anticoagulant medication as well as the use of clopidogrel and Ezetimibe
Due to the CAT scan suggesting acute ischemic injury and the patient experiencing multiple episodes of stroke despite best therapies clarity regarding the etiology for recurrent stroke must be given
Hold apixaban with replacement by addition of aspirin to the patient's usual clopidogrel
Continue Ezetimibe
Check CT chest abdomen pelvis for potential cancer producing hypercoagulable state
Recheck MRI of brain to determine if acute ischemic stroke is taken place
Consider hematology as well as cardiology evaluations due to the recurrent nature of the patient's stroke
Goal of normotension 24 hours after onset of symptoms
D/W patient
Will continue to follow patient.
Addendum entered and electronically signed by JAMIE Berrios 12/31/23 11:12:
added Dr. Carrero as Contributor
Original Note:
Consultation - Neurology 4
-
CONSULTING PHYSICIAN: Dr. Marc Carrero
REFERRING PHYSICIAN: Dr. Womack
DICTATED BY:JAMIE Berrios
DATE/TIME OF REQUEST: 12/31/2023 0945
DATE/TIME OF CONSULTATION: 12/31/2023 0950
Reason for Consultation: stroke alert
History of Present Illness:
This is an 83 year old female patient with a past medical history of bihemispheric stroke with Linq placement, chronic right eye CN palsy, asthma, osteoarthritis, hyperlipidemia, ovarian ca and hypertension who presented to the ER today (12/31/2023)
with worsening dysarthria.
From previous neurology noet by Doris Martinez 11/30/2023
This is an 83-year-old woman who presented to on November 28, 2023 with report of worsened dysarthria. According to the patient she noted her speech being more slurred around 5:15 AM today. She was assisted to use the restroom and fell asleep
before waking up again at 630 am noticing inability to sit straight in her wheelchair. No reports of change in vision, strength or headache.
Ms. Garcia was hospitalized at in October and diagnosed with acute bihemispheric strokes as well as E. coli UTI. She was discharged to [facility] with residual right LMN CN VII/R CN palsies from the R pontine with residual diplopia and dysarthria.
-CT Head 11/28/23: No acute intracranial abnormality noted. Stable chronic findings as detailed above. ASPECTS 10.
-CTA head/neck 11/28/23: CTA Head: No large vessel occlusion. No high-grade proximal stenosis. No aneurysm. CTA Neck: No significant arterial stenosis. Atherosclerotic calcifications of the left greater than right carotid bifurcations without
significant stenosis. Unchanged 2.3 cm hypodense nodule within the left hemithyroid, unchanged from prior.
-MRI brain 11/29/23: MULTIPLE ACUTE ISCHEMIC INFARCTS involving both the anterior and posterior intracranial circulation which are new from 11/07/2023 suggesting ACUTE EMBOLIC DISEASE (7.6 mm acute infarct in the left midbrain, 1.5 cm acute infarct
in the posterior right frontal lobe centrum semiovale, and 6.2 mm acute infarct in the superolateral right frontal lobe). MULTIPLE SUBACUTE ISCHEMIC INFARCTS in both the anterior and posterior intracranial circulation consistent with SUBACUTE
EMBOLIC DISEASE. Interval increase in CYTOTOXIC EDEMA within subacute infarcts in the right middle cerebellar peduncle. Mild diffuse cerebral and cerebellar volume loss.
I. MRI brain (11/29/2023) demonstrates multiple acute ischemic infarcts in bilateral hemispheres suggestive of acute embolic source, producing patient's dysarthria and RUE ataxia. Second cryptogenic embolic-appearing stroke in less than one month.
II. Cryptogenic subacute bihemispheric strokes with residual right LMN CN VII and CN palsies 10/2023.
III. R falcine/parietal convexity meningiomas.
IV. LINQ monitor placed 10/2023, has not demonstrated A-fib thus far. CAM 11/10/23 unremarkable.
V. Left thyroid nodule.
She was seen in the office by myself on 12/16/2023. She had continued deficits from previous strokes. She had last been seen by Dr. Patel in the hospital and was discharged on Eliquis, Plavix and atorvastatin. She had no adverse side effects from
medications and had no stroke symptoms, she was currently in acute rehab.
Today (12/31/2023) she reported she was sitting in her chair when her breakfast arrived about 0900 (she is currently at [employer]) she then felt slumped in her wheelchair and was too weak to reposition herself. She also reported her head felt numb
and was unable to speak. When she did speak she had worsening dysarthria. She presented to the ER via ambulance. By 930 symptoms had improved in the ER and she was back to baseline. She had not received am medications including Eliquis or Plavix.
CT head from the ER shows
1. Suspected moderate-sized acute transcortical ischemic infarct in the posterior left occipital lobe with loss of the normal louis-white matter differentiation (left posterior circulation infarct).
2. New 6.6 mm focal region of low-attenuation in the subcortical white matter of the posterior right frontal lobe suspicious for an acute ischemic white matter infarct.
3. MULTIPLE SUBACUTE POSTERIOR CIRCULATION INFARCTS in the right side of the cindy, right middle cerebellar peduncle, and both cerebellar hemispheres with an interval increase in cytotoxic edema in the right middle cerebellar peduncle.
4. Mild diffuse cerebral and cerebellar volume loss.
5. No CT evidence for acute intracranial hemorrhage.
Past Medical History
recent acute bihemispheric CVAs and LINQ placement, hx of Asthma, OA, HLD, HTN, ovarian ca, lymphademia
Past Surgical History:MUMTAZ(11/10/2023, bilateral cataract surgery, R DAYAN, BL TKA, BL TKA, BETTY with BL oophorectomy
Social History
Tobacco: Non-smoker
Alcohol: None
Drug: None
Living: Senior Living
Family History
Family History: Not pertinent
Allergies: see below
Home Medications: see below
Review of Symptoms:
Patient denies any fever, headache, chest pain, shortness of breath, GI or symptoms.
Vital Signs: see below
Physical Exam:
The patient is afebrile, heart sounds S1 and S2 are (regular / irregular), and chest is clear to auscultation bilaterally.
Neurologic Examination:
The patient is awake, alert and oriented x 3, mildly delayed processing. She is able to follow commands and answer questions appropriately. There is no mild dysarthria. On cranial nerve assessment, pupils are 3 mm bilateral, round and reactive to
light and accommodation. Right hemianopsia. Extraocular movements are intact. Facial sensations are intact and bilaterally symmetrical, right facial droop. Hearing is reduced to normal conversation volume. Tongue palate and uvula are midline.
Sternocleidomastoid strengths are full bilaterally. Motor strengths are 4/5 bilateral upper and lower extremities on medical research [place] scale. There LUE drift B/L LE drift. Deep tendon reflexes are trace bilateral upper and lower extremities.
Sensation of light touch intact and bilaterally symmetrical. There was no extinction noted on double simultaneous stimulation. Coordination is intact by finger to nose bilaterally.
Lab Results: see below
Neuro Imaging:
CT head from the ER (12/31/2023)
1. Suspected moderate-sized acute transcortical ischemic infarct in the posterior left occipital lobe with loss of the normal louis-white matter differentiation (left posterior circulation infarct).
2. New 6.6 mm focal region of low-attenuation in the subcortical white matter of the posterior right frontal lobe suspicious for an acute ischemic white matter infarct.
3. MULTIPLE SUBACUTE POSTERIOR CIRCULATION INFARCTS in the right side of the cindy, right middle cerebellar peduncle, and both cerebellar hemispheres with an interval increase in cytotoxic edema in the right middle cerebellar peduncle.
4. Mild diffuse cerebral and cerebellar volume loss.
5. No CT evidence for acute intracranial hemorrhage.
CTA head and neck (11/28/2023)
CTA Head: No large vessel occlusion. No high-grade proximal stenosis. No aneurysm.
CTA Neck: No significant arterial stenosis. Atherosclerotic calcifications of the left greater than right carotid bifurcations without significant stenosis.
Unchanged 2.3 cm hypodense nodule within the left hemithyroid, unchanged from prior
MRI brain (11/29/2023)
1. MULTIPLE ACUTE ISCHEMIC INFARCTS involving both the anterior and posterior intracranial circulation which are new from 11/07/2023 suggesting ACUTE EMBOLIC DISEASE (7.6 mm acute infarct in the left midbrain, 1.5 cm acute infarct in the posterior
right frontal lobe centrum semiovale, and 6.2 mm acute infarct in the superolateral right frontal lobe).
2. MULTIPLE SUBACUTE ISCHEMIC INFARCTS in both the anterior and posterior intracranial circulation consistent with SUBACUTE EMBOLIC DISEASE. Interval increase in CYTOTOXIC EDEMA within subacute infarcts in the right middle cerebellar peduncle.
3. Mild diffuse cerebral and cerebellar volume loss.
Impression:
RONALD GARCIA is a 83 year old F who has presented to the hospital with acute generalized weakness and worsening dysarthria likely secondary to acute strokes noted on Ct head
Patient has the following risk factors for their symptoms: previous strokes, age, hyperlipidemia,
IV Tenecteplase/IAT candidacy-improving symptoms
Recommendations:
-hold Eliquis, continue Plavix, initiate ASA81 mg
-MRI brain with and without contrast, will hold off on vessel imaging at this time as pt with CTA 11/28/2023
-LDL 48 continue atorvastatin 40 mg at goal which is less than 70
-Goal normotension
-Goal normoglycemia HgbA1c 3.7, will order repeat HgbA1c
-Will order CT chest/abdomen/pelvis for further workup to rule out malignancy given multiple cryptogenic stroke
-consider Hematology consultation
-recommend interrogation of Linq monitor
-Physiatry evaluation.
-NIHSS and neurological checks per unit guidelines.
-PT/OT/ST evaluations.
-DVT prophylaxis.
Discussed patient care with: Dr. Womack, Dr. Carrero, shine and patient
Medication and Allergies
Home Medications
Home Medications
�Medication �Instructions �Recorded
bumetanide 2 mg tablet 2 mg PO DAILY Fluid 09/13/20
retention/Swelling ##0
potassium chloride 10 mEq 10 meq PO DAILY Electrolyte 11/06/23
tablet,extended release Repletion
pantoprazole 40 mg tablet,delayed 40 mg PO DAILY #30 tabs 11/10/23
release
polyethylene glycol 3350 17 gram 17 g PO DAILY #100 ea 11/10/23
oral powder packet (HealthyLax)
cyanocobalamin (vitamin B-12) 1,000 mcg PO DAILY Supplement 30 11/25/23
1,000 mcg tablet days #30 tabs
docusate sodium 100 mg capsule 100 mg PO DAILY bowel regimen 30 11/25/23
days #30 caps
ezetimibe 10 mg tablet 10 mg PO HS cholelesterol 30 days 11/25/23
#30 tabs
fluticasone propionate 45 2 puff inhalation R BID 30 days #1 11/25/23
mcg-salmeterol 21 mcg/actuation container
HFA inhaler
loratadine 10 mg tablet 10 mg PO DAILY Allergies 30 days 11/25/23
#30 tabs
acetaminophen 325 mg tablet 650 mg PO Q4HPRN PRN mild 11/28/23
pain/fever
bisacodyl 10 mg rectal suppository 10 mg [place] DAILYPRN PRN IF NO BM ON 11/28/23
5TH DAY
carboxymethylcellulose sodium 1 % 1 drp RIGHT EYE Q4H dry eye 10/13/24
eye gel in a dropperette
(TheraTears)
magnesium hydroxide 400 mg/5 mL 2,400 mg PO [id number] PRN IF NO BM 11/28/23
oral suspension (Milk of Magnesia) ON 4TH DAY
sodium phosphates 19 gram-7 118 ml IL DAILYPRN PRN I FNO BM ON 11/28/23
gram/118 mL enema (Fleet Enema) 6TH DAY
apixaban 5 mg tablet (Eliquis) 5 mg PO BID #0 tabs 11/30/23
atorvastatin 40 mg tablet 40 mg PO QPM #0 tabs 11/30/23
ciprofloxacin HCl 0.3 % eye drops 1 drp ophthalmic (eye) Q4 #0 mL 11/30/23
clopidogrel 75 mg tablet 75 mg PO DAILY #0 tabs 11/30/23
Allergies
Allergies
Allergy/AdvReac Type Severity Reaction Status Date / Time
adhesive Allergy Plastic Verified 12/31/23 10:05
bandaids
cause
itching
cat dander Allergy chest Verified 12/31/23 10:05
tightness,asthma
dog dander Allergy chest Verified 12/31/23 10:05
tightness,asthma
grass pollen Allergy chest Verified 12/31/23 10:05
tightness,asthma
lisinopril Allergy angioedema Verified 12/31/23 10:05
perfume Allergy chest Verified 12/31/23 10:05
tightness,asthma
tree and shrub pollen Allergy chest Verified 12/31/23 10:05
tightness,asthma
Vital Signs / Labs
-
Vital Signs and Labs:
Temp Pulse Resp BP Pulse Ox
98.1 F 80 19 108/54 96
12/31/23 09:55 12/31/23 11:00 12/31/23 11:00 12/31/23 11:00 12/31/23 10:30
12/31/23 10:03
12/31/23 12/31/23
09:56 10:03
Chloride 96 L
Carbon Dioxide 33 H
Glucose 158 H
Total Bilirubin 3.6 H
POC Glucose 143 H
--- NOTE | 2023-12-31 10:27 | PHANOTE ---
Addendum entered by Judy Aguirre 12/31/23 12:02:
recalled [facility] for fax, still have not received fax of meds
Original Note:
med rec note- patient coming from [facility] unable to locate paperwork in er. called and spoke to [facility] 4th floor nursing station. awaiting fax
[2023-12-31 10:33] LABS: ALT (SGPT) 20 U/L (0-35); AST (SGOT) 32 U/L (14-36); Albumin 3.7 g/dl (3.5-5.0); Alkaline Phosphatase 97 U/L (38-126); Blood Urea Nitrogen 16 mg/dl (7-17); Calcium 9.4 mg/dl (8.4-10.2); Carbon Dioxide 33 mmol/L (22-30); Chloride 96 mmol/L (98-107); Estimated Creatinine Clearance 65 ml/min; Glucose 158 mg/dl (70-99); Sodium 137 mmol/L (135-145); Total Bilirubin 3.6 mg/dl (0.2-1.3); Total Protein 6.6 g/dl (6.3-8.2); eGFR > 60.00
[2023-12-31 10:44] LABS: Troponin I < 0.012 ng/ml
[2023-12-31 11:02] LABS: Potassium 3.8 mmol/L (3.5-5.1)
[2023-12-31 11:09] LABS: Hematocrit 29.2 % (37.0-47.0); Hemoglobin 9.7 g/dL (12.0-16.0); Mean Corp Hgb Conc. 33.2 g/dL (33.0-37.0); Mean Corpuscular Hgb 31.5 pg (27.0-31.0); Mean Corpuscular Volume 94.8 fL (81.0-99.0); Mean Platelet Volume 10.4 fL (7.4-10.4); Platelet Count 146 10^3/uL (130-400); Red Blood Cell Count 3.08 10^6/uL (4.20-5.40); Red Cell Dist. Width 16.1 % (11.5-14.5); White Blood Cell Count 3.3 10^3/uL (4.8-10.8)
[2023-12-31] MEDS: PLAVIX 75 MG PO (11:16)
[2023-12-31] MEDS: LOW STRENGTH ASPIRIN 81 MG PO (11:34)
[2023-12-31 12:27] LABS: Absolute Neutrophils -Man Diff 2.2 10^3/uL (1.4-6.5); Atypical Lymphocytes 2 %; Band Neutrophils 2 % (0-3); Eosinophils 3 % (0-6); Lymphocytes 16 % (20-51); Monocytes 10 % (2-9); Segmented Neutrophils 65 % (42-75)
[2023-12-31 12:28] LABS: Total Cells Counted 100
[2023-12-31 12:29] LABS: Anisocytosis 1+; Hypochromasia 1+; Normal RBC Morphology No; Platelets Checked Yes
--- NOTE | 2023-12-31 13:14 | HPS.HSE ---
Family Physician
-
Family Physician: Foster Del Cid
Chief Complaint
-
trouble speaking
History of Present Illness
Ms. Kayley Garcia is a 83 yo woman with hx essential HTN, HLD, ovarian CA s/p surgery 2011, admission 11/05-11/09 for bilateral ischemic CVA discharged on asa/plavix, admission 11/27-11/30 with recurrent stroke and transitioned to Eliquis, presents to
the ER with worsening dysarthria.
Patient was at [facility] and eating breakfast when she had onset of difficulty speaking and felt like she couldn't sit upright in her chair. She also had impaired vision out of left eye. These symptoms have improved since being in the ER. She has
decreased strength of LLE.
No recent fevers/chills. No cough/congestion. No chest pain or shortness of breath.
Medical History
Past Medical History
Past Medical History: Reports Other (bilateral ischemic CVAs and LINQ placement on Eliquis, Asthma, OA, HLD, HTN)
Past Surgical History: Reports Other (LINQII(11/10/2023), bilateral cataract surgery, R DAYAN, BL TKA, BL TKA, BETTY with BL oophorectomy)
Social History
Tobacco: Non-smoker
Alcohol: None
Drug: None
Living: Penitentiary
Family History
Family History: Not pertinent
Allergies / Home Medications
Allergies reflects when Allergies were last updated in [facility].
Home Medications with original date entered in [facility]
Allergy/Medication List:
Allergies
Allergy/AdvReac Type Severity Reaction Status Date / Time
adhesive Allergy Plastic Verified 12/31/23 10:05
bandaids
cause
itching
cat dander Allergy chest Verified 12/31/23 10:05
tightness,asthma
dog dander Allergy chest Verified 12/31/23 10:05
tightness,asthma
grass pollen Allergy chest Verified 12/31/23 10:05
tightness,asthma
lisinopril Allergy angioedema Verified 12/31/23 10:05
perfume Allergy chest Verified 12/31/23 10:05
tightness,asthma
tree and shrub pollen Allergy chest Verified 12/31/23 10:05
tightness,asthma
Home Medications
bumetanide 2 mg tablet 2 mg PO DAILY Fluid retention/Swelling ##0 09/13/20
potassium chloride 10 mEq tablet,extended release 10 meq PO DAILY Electrolyte Repletion 11/06/23
pantoprazole 40 mg tablet,delayed release 40 mg PO DAILY #30 tabs 11/10/23
polyethylene glycol 3350 17 gram oral powder packet (HealthyLax) 17 g PO DAILY #100 ea 11/10/23
cyanocobalamin (vitamin B-12) 1,000 mcg tablet 1,000 mcg PO DAILY Supplement 30 days #30 tabs 11/25/23
docusate sodium 100 mg capsule 100 mg PO DAILY bowel regimen 30 days #30 caps 11/25/23
ezetimibe 10 mg tablet 10 mg PO HS cholelesterol 30 days #30 tabs 11/25/23
fluticasone propionate 45 mcg-salmeterol 21 mcg/actuation HFA inhaler 2 puff inhalation R BID 30 days #1 container 11/25/23
loratadine 10 mg tablet 10 mg PO DAILY Allergies 30 days #30 tabs 11/25/23
acetaminophen 325 mg tablet 650 mg PO Q4HPRN PRN mild pain/fever 11/28/23
bisacodyl 10 mg rectal suppository 10 mg FL DAILYPRN PRN IF NO BM ON 5TH DAY 11/28/23
carboxymethylcellulose sodium 1 % eye gel in a dropperette (TheraTears) 1 drp RIGHT EYE Q4H dry eye 11/28/23
magnesium hydroxide 400 mg/5 mL oral suspension (Milk of Magnesia) 2,400 mg PO [id number] PRN IF NO BM ON 4TH DAY 11/28/23
sodium phosphates 19 gram-7 gram/118 mL enema (Fleet Enema) 118 ml FL DAILYPRN PRN I FNO BM ON 6TH DAY 11/28/23
apixaban 5 mg tablet (Eliquis) 5 mg PO BID #0 tabs 11/30/23
atorvastatin 40 mg tablet 40 mg PO QPM #0 tabs 11/30/23
clopidogrel 75 mg tablet 75 mg PO DAILY #0 tabs 11/30/23
fluticasone propionate 50 mcg/actuation nasal spray,suspension 1 spray intranasal DAILY 12/31/23
Review of Systems
-
History Source: Patient
A 12 point ROS was completed and negative except as noted: Yes
Physical Exam
Vital Signs
Vital Signs
Temp Pulse Resp BP Pulse Ox
98.1 F 77 16 101/82 97
12/31/23 09:55 12/31/23 13:00 12/31/23 13:00 12/31/23 13:00 12/31/23 13:00
Physical Exam
General: No Apparent Distress
HEENT: Other (right eyelid paralysis)
Respiratory: Clear; No Wheezes
Cardiac: S1/S2 and Regular Rhythm
GI: Soft and Non Tender
Musculoskeletal: No Edema
Skin: Warm and Dry; No Rash
Neuro: AO x 3 and Other (right facial paralysis; can minimally flex bilateral knees; can keep both arms up > 5 seconds; speech clear )
Psych: Calm
Laboratory Results
-
12/31/23 10:03
12/31/23 10:03
Laboratory Results
Total Bilirubin 3.6 mg/dl (0.2-1.3) H 12/31/23 10:03
AST 32 U/L (14-36) 12/31/23 10:03
ALT 20 U/L (0-35) 12/31/23 10:03
Alkaline Phosphatase 97 U/L (38-126) 12/31/23 10:03
Troponin I < 0.012 ng/ml 12/31/23 10:03
Data Reviewed
-
Diagnostic Radiology: Report Reviewed by me
Lab Data: Labs Reviewed by me
Impression/Plan
-
Ms. Kayley Garcia is a 83 yo woman with hx essential HTN, HLD, ovarian CA s/p surgery 2011, admission 11/05-11/09 for bilateral ischemic CVA discharged on asa/plavix, admission 11/27-11/30 with recurrent stroke and transitioned to Eliquis, presents to
the ER with worsening dysarthria.
Triage VS: T 98.1, P 90, RR 20, BP 119/75, SpO2 97%
LABS: WBC 3.3, Hg 9.7, PLT 146, Na 137, K+ 3.8, Co2 33, BUN 16, Cr 0.7, Glucose 158, T. Bili 3.6, AST 32, ALT 20, Alk PHos 97, Trop < 0.012
MAR: asa/plavix
HEAD CT
IMPRESSION:
1. Suspected moderate-sized acute transcortical ischemic infarct in the posterior left occipital lobe with loss of the normal louis-white matter differentiation (left posterior circulation infarct).
2. New 6.6 mm focal region of low-attenuation in the subcortical white matter of the posterior right frontal lobe suspicious for an acute ischemic white matter infarct.
3. MULTIPLE SUBACUTE POSTERIOR CIRCULATION INFARCTS in the right side of the cindy, right middle cerebellar peduncle, and both cerebellar hemispheres with an interval increase in cytotoxic edema in the right middle cerebellar peduncle.
4. Mild diffuse cerebral and cerebellar volume loss.
5. No CT evidence for acute intracranial hemorrhage.
Bilateral Cryptogenic CVA
-this is patient's third admission since October with new bilateral strokes. She was started on Aspirin/Plavix; then discharged on Eliquis/Plavix last admission
-seen by Neurology in the ER and aspirin ordered with Plavix, hold Eliquis in acute period
-admit to telemetry
-MRI Brain with and without contrast
-CT Chest/Abdomen/Pelvis for cancer screening in setting of cryptogenic stroke
-continue asa/plavix
-hold Eliquis
-DIRECTOR EMBALMER Statin
-neuro checks
-PT/OT/ST
-asking cardiology to interrogate Linq
HFpEF
-DIRECTOR EMBALMER Bumex
GERD
-DIRECTOR EMBALMER Protonix
DVT PPx lovenox subQ
FULL CODE
76 minutes spent on patient care
--- NOTE | 2023-12-31 15:58 | W.PN.UPDATE ---
Update Note
Progress Note Update
[employer] ILR interrogated.
No atrial fibrillation. No pauses. No elevated heart rates.
[2023-12-31] MEDS: MIRALAX 17 GRAMS PO (18:27)
[2023-12-31] MEDS: LOVENOX 40 MG SC (18:27)
[2023-12-31] MEDS: PROTONIX 40 MG PO (18:29)
[2023-12-31] MEDS: LIPITOR 40 MG PO (18:29)
[2023-12-31] MEDS: KCL 10 MEQ PO (18:29)
[2023-12-31] MEDS: REFRESH CELLUVISC GEL RIGHT EYE (18:29)
[2023-12-31] MEDS: ADVAIR HFA 45/21 MCG INHALER 2 PUFF INH (19:41)
[2023-12-31] MEDS: REFRESH CELLUVISC GEL 1 DROPS RIGHT EYE (21:37)
[2023-12-31] MEDS: ZETIA 10 MG PO (21:38)
[2024-01-01] VITALS (7 sets, daily range): BP systolic 101–113; BP diastolic 47–65; PULSE 76; O2SAT 96; BMI 31.9
[2024-01-01] MEDS: REFRESH CELLUVISC GEL 1 DROPS RIGHT EYE ×5 (01:20→17:57)
[2024-01-01 06:52] LABS: Hematocrit 28.2 % (37.0-47.0); Hemoglobin 8.8 g/dL (12.0-16.0); Mean Corp Hgb Conc. 31.2 g/dL (33.0-37.0); Mean Corpuscular Hgb 30.3 pg (27.0-31.0); Mean Corpuscular Volume 97.2 fL (81.0-99.0); Platelet Count 137 10^3/uL (130-400); Red Cell Dist. Width 16.1 % (11.5-14.5); White Blood Cell Count 2.7 10^3/uL (4.8-10.8)
[2024-01-01 07:16] LABS: Blood Urea Nitrogen 11 mg/dl (7-17); Calcium 8.8 mg/dl (8.4-10.2); Carbon Dioxide 30 mmol/L (22-30); Chloride 97 mmol/L (98-107); Estimated Creatinine Clearance 64 ml/min; Glucose 100 mg/dl (70-99); Potassium 3.8 mmol/L (3.5-5.1); Sodium 138 mmol/L (135-145); eGFR > 60.00
--- NOTE | 2024-01-01 08:32 | W.PN.NEURO.1 ---
Today's Communication / Plan
-
Recheck MRI of brain to determine if acute ischemic stroke is taken place
Hold apixaban dependent on MRI of brain results
Continue replacement by addition of aspirin to the patient's usual clopidogrel, dependent on MRI of brain results
Continue Ezetimibe
Check CT chest abdomen pelvis for potential cancer producing hypercoagulable state
Consider hematology as well as cardiology evaluations due to the recurrent nature of the patient's stroke
Goal of normotension
Rehabilitation evaluations
Neuro Assessment/Plan
Assessment
Abrupt onset of speech dysfunction, transient
Most likely secondary to TIA despite therapy at highest level of prevention with the use of anticoagulant medication as well as the use of clopidogrel and Ezetimibe
Due to the CAT scan suggesting acute ischemic injury and the patient experiencing multiple episodes of stroke despite best therapies clarity regarding the etiology for recurrent stroke must be given
Plan
Recheck MRI of brain to determine if acute ischemic stroke is taken place
Hold apixaban dependent on MRI of brain results
Continue replacement by addition of aspirin to the patient's usual clopidogrel, dependent on MRI of brain results
Continue Ezetimibe
Check CT chest abdomen pelvis for potential cancer producing hypercoagulable state
Consider hematology as well as cardiology evaluations due to the recurrent nature of the patient's stroke
Goal of normotension
Rehabilitation evaluations
Will follow pending results
Subjective/Objective
Subjective Data
Date of Service: January 01, 2024
No new events
Objective Data
Vital Signs
Temp Pulse Resp BP Pulse Ox
37.0 C 89 18 109/50 99
01/01/24 07:45 01/01/24 07:45 01/01/24 07:45 01/01/24 07:45 01/01/24 07:45
Lab Results
01/01/24 06:16
01/01/24 06:16
Sodium 138 mmol/L (135-145) 01/01/24 06:16
Potassium 3.8 mmol/L (3.5-5.1) 01/01/24 06:16
BUN 11 mg/dl (7-17) 01/01/24 06:16
Glucose 100 mg/dl (70-99) H 01/01/24 06:16
Calcium 8.8 mg/dl (8.4-10.2) 01/01/24 06:16
Patient Allergies
adhesive Allergy (Verified 12/31/23 10:05)
Plastic bandaids cause itching
cat dander Allergy (Verified 12/31/23 10:05)
chest tightness,asthma
dog dander Allergy (Verified 12/31/23 10:05)
chest tightness,asthma
grass pollen Allergy (Verified 12/31/23 10:05)
chest tightness,asthma
lisinopril Allergy (Verified 12/31/23 10:05)
angioedema
perfume Allergy (Verified 12/31/23 10:05)
chest tightness,asthma
tree and shrub pollen Allergy (Verified 12/31/23 10:05)
chest tightness,asthma
Review of Systems
-
History Source: Patient
All other systems: Reviewed and negative
EENT: Negative Decreased Vision or Swallowing Difficulty
Respiratory: Negative Trouble Breathing
Abdomen/GI: Negative Incontinence of Stool
Genitourinary: Negative Incontinence
Musculoskeletal: Negative Back Pain or Neck Pain
Neuro: Negative Dizzy or Headache
Physical Exam
-
General: No Apparent Distress
Eyes: Round OU
HEENT: Normocephalic and Atraumatic
Neck: Full Range of Motion
Respiratory: No Dyspnea
Cardiac: No JVD
GI: Non-distended
Extremities: No Clubbing, No Cyanosis and No Edema
Psych: Unremarkable
Extended Neurological Exam
Mood & Affect: Mood Unremarkable and Affect Unremarkable
Attention Span & Concentration: Awake, Alert, Interactive and No Difficulty with 2 Step Request
Memory: Unremarkable
Tremor: Hand Tremor Absent and Head Tremor Absent
Involuntary Movement: None
Speech: Quality Unremarkable and Quantity Unremarkable
Cranial Nerve II: Left Eye: Pupillary Size Unremarkable and Visual Willard Grossly Intact
Cranial Nerve II: Right Eye: Pupillary Size Unremarkable and Visual Willard Grossly Intact
Cranial Nerves III, IV, : Extraocular Movement: Negative Extraocular Movement Full in all Directions (R eye CN 6 palsy) or Ptosis on Left
Cranial Nerve VII: Facial Symmetry: Reduced (complete R facial drooping)
Cranial Nerve VIII: Hearing: Grossly Reduced
Muscle Strength, Overall: Reduced on Right (RUE 5-/5) and Reduced on Left (LUE 5/5)
Muscle Bulk & Tone: Bulk Unremarkable and Tone Unremarkable
Pronator Drift: Drift in Right Upper Extremity (Minimal); Negative Drift in Left Upper Extremity
Gait & Station: Unable to Assess
Data Reviewed
-
MRI Head: Pending
Past History
Past History
ED Past Medical History: Asthma, CVA, HTN, Other (Ovarian CA) and Other (lymphedema )
ED Past Surgical History: Gynecological and Orthopedic (bilateral knee replacement and right hip replacement )
Social History
Tobacco: Non-smoker
Alcohol: None
Drug: None
Personal: Single
Living: alone
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
Family History
Family History: Other (Noncontributory)
Medications
-
Medications:
Generic Name Dose Route Start Last Admin
Trade Name Freq PRN Reason Stop Dose Admin
Acetaminophen 650 mg 12/31/23 16:59
Acetaminophen 650 Mg Rectal Suppository RECTAL 01/28/24 16:58
Q4HPRN PRN
ANDRADE, mild pain, or temp >100.4F
Acetaminophen 650 mg 12/31/23 16:59
Acetaminophen 325 Mg Tablet PO 01/28/24 16:58
Q4HPRN PRN
ANDRADE, mild pain, or temp >100.4F
Aspirin 81 mg 01/01/24 08:00
Aspirin 81 Mg Chewable Tablet PO 01/29/24 07:59
DAILY VIRAL
Atorvastatin Calcium 40 mg 12/31/23 18:00 12/31/23 18:29
Atorvastatin (Lipitor) 40 Mg Tablet PO 01/28/24 17:59 40 mg
QPM VIRLA Administration
Bumetanide 2 mg 01/01/24 08:00
Bumetanide 2 Mg Tablet PO 01/29/24 07:59
DAILY VIRAL
Carboxymethylcellulose Sodium 1 drops 12/31/23 18:00 01/01/24 05:12
Carboxymethylcellulose Ophth Gel (Celluvisc) Droperette RIGHT EYE 01/28/24 17:59 1 drops
Q4H VIRAL Administration
Clopidogrel Bisulfate 75 mg 01/01/24 08:00
Clopidogrel 75 Mg Tablet PO 01/29/24 07:59
DAILY VIRAL
Cyanocobalamin 1,000 mcg 01/01/24 08:00
Cyanocobalamin 1,000 Mcg Tablet PO 01/29/24 07:59
DAILY VIRAL
Docusate Sodium 100 mg 01/01/24 08:00
Docusate Sodium 100 Mg Capsule PO 01/29/24 07:59
DAILY VIRAL
Ezetimibe 10 mg 12/31/23 22:00 12/31/23 21:38
Ezetimibe (Zetia) 10 Mg Tablet PO 01/28/24 21:59 10 mg
HS VIRAL Administration
Enoxaparin Sodium 40 mg 12/31/23 18:00 12/31/23 18:27
Enoxaparin Sodium 40 Mg/0.4 Ml Syringe SC 01/28/24 17:59 40 mg
QPM VIRAL Administration
Loratadine 10 mg 01/01/24 08:00
Loratadine 10 Mg Tablet PO 01/29/24 07:59
DAILY VIRAL
Pantoprazole Sodium 40 mg 12/31/23 16:59 12/31/23 18:29
Pantoprazole 40 Mg Delayed Release Tablet PO 01/28/24 16:58 40 mg
DAILY VIRAL Administration
Polyethylene Glycol 17 grams 12/31/23 16:59 12/31/23 18:27
Polyethylene Glycol Powder 17 Grams Packet PO 01/28/24 16:58 17 grams
DAILY VIRAL Administration
Potassium Chloride 10 meq 12/31/23 16:59 12/31/23 18:29
Potassium Chloride 10 Meq Extended Release Tablet PO 01/28/24 16:58 10 meq
DAILY VIRAL Administration
Fluticasone/Salmeterol 2 puff 12/31/23 20:00 12/31/23 19:41
Advair Hfa 45/21 Inhaler INH 01/28/24 19:59 2 puff
R BID VIRAL Administration
Protocol
Sodium Chloride 0 flush 12/31/23 18:00
Sodium Chloride 0.9% (Flush) Syringe IV 01/28/24 17:59
PER PROTOCOL VIRAL
[2024-01-01] MEDS: ADVAIR HFA 45/21 MCG INHALER 2 PUFF INH (08:42)
[2024-01-01] MEDS: MIRALAX 17 GRAMS PO (09:08)
[2024-01-01] MEDS: CLARITIN 10 MG PO (09:08)
[2024-01-01] MEDS: LOW STRENGTH ASPIRIN 81 MG PO (09:08)
[2024-01-01] MEDS: KCL 10 MEQ PO (09:08)
[2024-01-01] MEDS: PROTONIX 40 MG PO (09:08)
[2024-01-01] MEDS: COLACE 100 MG PO (09:08)
[2024-01-01] MEDS: PLAVIX 75 MG PO (09:08)
[2024-01-01] MEDS: VITAMIN B-12 1000 MCG PO (09:09)
[2024-01-01] MEDS: BUMEX 2 MG PO (09:26)
[2024-01-01 10:00] LABS: Glycohemoglobin (HgbA1c) 3.6 % (4.0-5.6)
[2024-01-01] MEDS: OMNIPAQUE 50 ML PO (10:15)
[2024-01-01] MEDS: TYLENOL 650 MG PO (11:53)
--- NOTE | 2024-01-01 11:56 | PTOTSP ---
SPEECH THERAPY SWALLOW AND SPEECH/LANGUAGE/COGNITIVE COMMUNICATION EVALUATION:
Patient exhibits clinical signs of oropharyngeal dysphagia, likely chronic related to subacute/chronic CVAs and acutely exacerbated by acute CVAs. No signs or symptoms of aspiration at this time. However, patient remains at risk for aspiration and
related complications given cognitive communication impairments related to CVAs including reduced insight. Stable respiratory status at this time. Pt observed implementing safe swallow strategies independently during p.o. trials. Recommend continue
Regular texture diet, thin liquids. Medications whole with liquid as best tolerated. Aspiration precautions: 100% supervision with meals; Partial assistance; Upright positioning; Small single sips/bites; Slow rate of intake; Eat only when
awake/alert; Place bolus/straw on Left; Check for pocketing on Right; Alternate textures; Monitor for signs of aspiration; D/c oral diet if any decline in mental or respiratory status. Oral care 3x/day to reduce risk for nosocomial infection. ST to
follow, assess diet tolerance and modify as appropriate, and determine indication for instrumental assessment of swallowing if indicated.
Patient exhibits mild dysarthria, mild expressive/receptive language impairments, and mild-moderate cognitive communication impairments, likely [id number] related to acute and subacute/chronic cryptogenic CVAs. Deficits include impairments in
visuospatial skills, executive functioning skills, attention, STM, insight into deficits, word finding, complex receptive language tasks. Skilled ST services are indicated at the acute care level and continued upon discharge.
RECOMMEND:
1) Regular texture diet, thin liquids
2) Medications whole with liquid as best tolerated
3) Aspiration precautions: 100% supervision with meals; Partial assistance; Upright positioning; Small single sips/bites; Slow rate of intake; Eat only when awake/alert; Place bolus/straw on Left; Check for pocketing on Right; Alternate textures;
Monitor for signs of aspiration; D/c oral diet if any decline in mental or respiratory status
4) Oral care 3x/day
5) ST to follow
--- NOTE | 2024-01-01 12:10 | W.PN.HOSP.TC ---
Today's Communication/Plan
-
F/U CT A/P
Appreciate Neurology consult
Hematology consult
Assessment / Plan
Assessment / Plan
Ms. Kayley Garcia is a 83 yo woman with hx essential HTN, HLD, ovarian CA s/p surgery 2011, admission 11/05-11/09 for bilateral ischemic CVA discharged on asa/plavix, admission 11/27-11/30 with recurrent stroke and transitioned to Eliquis, presents to
the ER with worsening dysarthria.
HEAD CT
IMPRESSION:
1. Suspected moderate-sized acute transcortical ischemic infarct in the posterior left occipital lobe with loss of the normal louis-white matter differentiation (left posterior circulation infarct).
2. New 6.6 mm focal region of low-attenuation in the subcortical white matter of the posterior right frontal lobe suspicious for an acute ischemic white matter infarct.
3. MULTIPLE SUBACUTE POSTERIOR CIRCULATION INFARCTS in the right side of the cindy, right middle cerebellar peduncle, and both cerebellar hemispheres with an interval increase in cytotoxic edema in the right middle cerebellar peduncle.
4. Mild diffuse cerebral and cerebellar volume loss.
5. No CT evidence for acute intracranial hemorrhage.
Brain MRI
IMPRESSION:
Interval development of a small acute infarcts in the right frontal lobe, and anterolateral margin of the left cerebellum.
Acute evidence of acute small cortical infarct in the paramidline right occipital lobe.
No acute large vascular territory transcortical infarct.
Otherwise, evolving subacute and/or chronic infarcts are demonstrated, as described.
No mass effect.
Small posterior falcine meningioma. No other abnormal intracranial enhancement
Bilateral Cryptogenic CVA
-this is patient's third admission since October with new bilateral strokes. She was started on Aspirin/Plavix; then discharged on Eliquis/Plavix last admission
-seen by Neurology in the ER and aspirin ordered with Plavix, hold Eliquis in acute period
-admit to telemetry
-CT Chest/Abdomen/Pelvis for cancer screening in setting of cryptogenic stroke
-continue asa/plavix for now and hold Eliquis
-CHILD AND FAMILY SERVICES WORKER Statin
-neuro checks
-PT/OT/ST
-no afib on Linq
-appreciate neurology consult
-Heme consult
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
-seen by Heme last admission - will consult again this admission
HFpEF
-CHILD AND FAMILY SERVICES WORKER Bumex
GERD
-CHILD AND FAMILY SERVICES WORKER Protonix
DVT PPx lovenox subQ
FULL CODE
51 mintues spent on patient care
Anticipated Discharge: > 48 hours
Subjective/Interval History
-
Date of Service: January 01, 2024
no new complaints
speech has remained okay
bilatera LE weakness
Objective Data
-
Labs:
Laboratory Results
01/01/24 01/01/24
06:16 11:55
WBC 2.7 L
Hgb 8.8 L Pending
Hct 28.2 L
Plt Count 137
Sodium 138
Potassium 3.8
Chloride 97 L
Carbon Dioxide 30
BUN 11
Creatinine 0.7
Glucose 100 H
Calcium 8.8
Vital Signs:
Vital Signs
Temp Pulse Resp BP Pulse Ox
98.6 F 92 16 109/50 99
01/01/24 07:45 01/01/24 09:26 01/01/24 08:46 01/01/24 09:26 01/01/24 08:46
I&O
12/31/23 01/01/24 01/02/24
06:59 06:59 06:59
Intake Total 360 / 360
Output Total 0 / 0
Balance 360 / 360
Review of Systems
-
History Source: Patient
All other systems: Reviewed and negative
Physical Exam
-
General: No Apparent Distress
HEENT: Other (right eyelid paralysis )
Respiratory: Clear to Auscultation; Negative Wheezes
Cardiac: Regular Rhythm and S1/S2
GI: Soft and Nontender
Musculoskeletal: No Edema
Skin: Warm and Dry; Negative Rash
Neuro: AO x 3 and Other (right facial paresis; b/l LE weakness)
Psych: Calm
Data Reviewed
-
Diagnostic Radiology: Report Reviewed by me
Labs: Labs Reviewed by me
[2024-01-01 12:40] LABS: Hemoglobin 9.7 g/dL (12.0-16.0)
[2024-01-01 13:45] LABS: Erythrocyte Sed Rate 36 mm/hour (0-20)
[2024-01-01 13:52] LABS: Glucose - Point of Care 92 mg/dl (70-99)
--- NOTE | 2024-01-01 14:10 | PTCARENOTE ---
Patient worked with PT/OT. PT came to RN to discuss keeping LUE on pillow due to flaccidity. Patient prior to this has been moving LUE. NIH now 16. LEGAL SPECIALIST and Stroke Alert called. Neurology MD and PROCESSES CHEMICAL DESIGN ENGINEER's to bedside. Patient to stay on [address] at this
time. Awaiting CT Chest/Abd/Pelvis results. To give new order Brilinta.
--- NOTE | 2024-01-01 14:15 | W.PN.UPDATE ---
Update Note
Progress Note Update
Stroke alert.
At approximately 1340 hrs., patient was described by physical therapy as having left-sided upper extremity paresis to nursing.
Stroke alert was initiated.
CAT scan of the head was not repeated as the patient has known stroke with unlikely hemorrhagic component based on absence of increased tone although the patient's speech and left upper extremity are now significantly compromised. The patient has
moderately reduced output of speech with left upper extremity strength 3 out of 5 distally and 2 out of 5 proximally. Bilateral lower extremity strength is 4- out of 5 and full in upper extremity. There is no drift in the right upper extremity.
Unable to assess the left upper extremity for drift.
Plan:
Place clopidogrel with ticagrelor, initial dose given prior to stroke alert
Restart apixaban
Consider consultation for GI due to splenic enlargement
Appreciate oncology consultation for splenic enlargement and intractable, recurrent stroke
I reviewed the case with the patient's POA who was at bedside
We will follow
[2024-01-01] MEDS: BRILINTA 90 MG PO (14:30)
--- NOTE | 2024-01-01 14:55 | W.PN.UPDATE ---
Update Note
Progress Note Update
patient with progression of left upper extremity weakness and expressive aphasia this afternoon.
Case discussed with Dr. Carrero and Dr. Tomlin. Given complexity of case and concern for hypercoagulable state that would need more expedited work up, recommendation to transfer to [facility]. I spoke to Neurology team catalytic converter operator helper and the recommend CT Head/
CTA Head/Neck prior to transfer . If that without new thrombus would accept patient for transfer. I will call [facility] again post studies.
This was explained to patient and family and transfer forms are signed for consent. I will sign case out to cross cover.
Specialists updated.
[2024-01-01 15:14] LABS: VerifyNow PRU 165 PRU (180-376)
--- NOTE | 2024-01-01 15:35 | CON.ONC ---
Impression
Impression
recurrent CVAs - unclear etiology
non-immune hemolysis
splenomegaly
Plan
Plan
1. Non-immune hemolysis - The etiology of this patient's non-immune hemolysis is unclear, w/ a broad differential including infections, mechanical etiologies, hemoglobinopathy, malignancy/ lymphoproliferative disorders - though majority are immune,
hypersplenism, antiphospholipid syndrome, complement disorders, as well as a other less common etiologies including PNH. Splenomegaly can develop in the context of hemolytic anemia and may be a consequence or contributor to hemolysis in this
scenario. Non-immune hemolysis can be associated w/ hypercoagulable state and thrombosis, which could be an potential contributing cause to recurrent CVAs
Review of peripheral blood smear today revealed no evidence of microangiopathy - no schistocytes. Testing for PNH involves sending flow for CD55/CD59. With the patient potentially being transferred to [facility] this evening, will hold off on sending this
out, as flow likely can be done at [facility]. Will proceed w/ repeat hemolysis w/u including reticulocyte count, LDH, haptoglobin, as well as repeat JAMES. A urine hemosiderin will be assessed. Check cardiolipin and beta 2 glycoprotein I antibodies, as well
as lupus anticoagulant.
W/ concomitant leukopenia a bone marrow biopsy would be beneficial to evaluate for possible underlying clonal myeloid disorder. Again, with the patient potentially being transferred to [facility], this could be done following transfer.
Will continue to follow with you.
Patient History
History of Present Illness
83y/o female seen in hematology consultation regarding non-immune hemolysis and splenomegaly, now w/ recurrent CVAs.
The patient has had recurrent CVAs over the past couple months, resulting in hospitalizations in October, November, and now December.
She presented to the [facility] ER on 12/30 w/ left sided weakness, visual changes, and speech difficulties.
Head CT 12/30 imaging revealed suspected moderate-sized acute transcortical ischemic infarct in the posterior left occipital lobe with loss of the normal louis-white matter differentiation. New 6.6 mm focal region of low-attenuation in the
subcortical white matter of the posterior right frontal lobe suspicious for an acute ischemic white matter infarct. Multiple subacute posterior circulation infarcts in the right side of the cindy, right middle cerebellar peduncle, and both cerebellar
hemispheres with an interval increase in cytotoxic edema in the right middle cerebellar peduncle.Mild diffuse cerebral and cerebellar volume loss. No CT evidence for acute intracranial hemorrhage.
MRI 12/31 revealed interval development of a small acute infarcts in the right frontal lobe, and anterolateral margin of the left cerebellum. Acute evidence of acute small cortical infarct in the paramidline right occipital lobe.
No mass effect. Small posterior falcine meningioma. No other abnormal intracranial enhancement
She has been seen by neurology, Dr. Carrero, w/ her stroke regimen adjusted - now ticagrelor and apixaban.
Neurologic and cardiac w/u in October and November was unremarkable as to etiology of CVAs.
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 This persists on laboratory studies this hospitalization. CBC today reveals total WBC 2700, Hb 8.8g/dl and platelet count 137,000.
Reticulocyte count from today is pending. CMP reveals normal kidney function. Bilirubin is elevated at 3.6. Additional repeat hemolytic labs are pending.
The patient also has a h/o early stage ovarian cancer - 2011 - s/p BETTY/BSO - Dr. Sellers. CT chest/ abd/pelvis was performed today w/ no definitive evidence of occult malignancy. Splenomegaly was again appreciated w/ spleen 16.9cm in size.
Clinically, the patient notes significant fatigue. She denies pain. No SOB at rest or chest pain. She has right eyelid and facial weakness and dysarthria. No fevers or chills. The patient and her family have not noticed significant dark urine.
Past-Medical/Surgical History
PMH:
recurrent CVAs - 11/08, 12/08, 01/08
LINQ
ovarian cancer - stage I - 2011 - Dr. Sellers - s/p BETTY/BSO
chronic anemia
chronic lymphedema
splenomegaly
asthma
hyperlipidemia
OA
HTN
PSH:
LINQII(11/10/2023
bilateral cataract surgery
R DAYAN
BL TKA
BL TKA
BETTY/BSO
Social History
Tobacco: Non-smoker
Alcohol: None
Drug: None
Living: Care Home
Family History
Family History: Not pertinent
Allergies: lisinopril
Patient Medication
�Medication �Instructions �Recorded �Confirmed �Last Taken �Type
bumetanide 2 mg tablet 2 mg PO DAILY Fluid 09/13/20 12/31/23 11/05/23 Rx
retention/Swelling ##0
potassium chloride 10 mEq 10 meq PO DAILY Electrolyte 11/06/23 12/31/23 11/05/23 History
tablet,extended release Repletion
pantoprazole 40 mg tablet,delayed 40 mg PO DAILY #30 tabs 11/10/23 12/31/23 Unknown Rx
release
polyethylene glycol 3350 17 gram 17 g PO DAILY #100 ea 11/10/23 12/31/23 Unknown Rx
oral powder packet (HealthyLax)
cyanocobalamin (vitamin B-12) 1,000 mcg PO DAILY Supplement 30 11/25/23 12/31/23 Unknown Rx
1,000 mcg tablet days #30 tabs
docusate sodium 100 mg capsule 100 mg PO DAILY bowel regimen 30 11/25/23 12/31/23 Unknown Rx
days #30 caps
ezetimibe 10 mg tablet 10 mg PO HS cholelesterol 30 days 11/25/23 12/31/23 Unknown Rx
#30 tabs
fluticasone propionate 45 2 puff inhalation R BID 30 days #1 11/25/23 12/31/23 Unknown Rx
mcg-salmeterol 21 mcg/actuation container
HFA inhaler
loratadine 10 mg tablet 10 mg PO DAILY Allergies 30 days 11/25/23 12/31/23 Unknown Rx
#30 tabs
acetaminophen 325 mg tablet 650 mg PO Q4HPRN PRN mild 11/28/23 12/31/23 Unknown History
pain/fever
bisacodyl 10 mg rectal suppository 10 mg NM DAILYPRN PRN IF NO BM ON 11/28/23 12/31/23 Unknown History
5TH DAY
carboxymethylcellulose sodium 1 % 1 drp RIGHT EYE Q4H dry eye 11/28/23 12/31/23 Unknown History
eye gel in a dropperette
(TheraTears)
magnesium hydroxide 400 mg/5 mL 2,400 mg PO [id number] PRN IF NO BM 11/28/23 12/31/23 Unknown History
oral suspension (Milk of Magnesia) ON 4TH DAY
sodium phosphates 19 gram-7 118 ml NM DAILYPRN PRN I FNO BM ON 11/28/23 12/31/23 Unknown History
gram/118 mL enema (Fleet Enema) 6TH DAY
atorvastatin 40 mg tablet 40 mg PO QPM #0 tabs 11/30/23 12/31/23 Unknown Rx
clopidogrel 75 mg tablet 75 mg PO DAILY #0 tabs 11/30/23 12/31/23 Unknown Rx
fluticasone propionate 50 1 spray intranasal DAILY Allergies 12/31/23 12/31/23 Unknown History
mcg/actuation nasal
spray,suspension
apixaban 5 mg tablet (Eliquis) 5 mg PO BID Blood Clot 01/01/24 12/31/23 Unknown History
Prevention/Tx
Active Medications
Generic Name Dose Route Start Last Admin
Trade Name Freq PRN Reason Stop Dose Admin
Acetaminophen 650 mg 12/31/23 16:59
Acetaminophen 650 Mg Rectal Suppository RECTAL 01/28/24 16:58
Q4HPRN PRN
ANDRADE, mild pain, or temp >100.4F
Acetaminophen 650 mg 12/31/23 16:59 01/01/24 11:53
Acetaminophen 325 Mg Tablet PO 01/28/24 16:58 650 mg
Q4HPRN PRN Administration
ANDRADE, mild pain, or temp >100.4F
Apixaban 5 mg 01/01/24 20:00
Apixaban (Eliquis) 5 Mg Tablet PO 01/29/24 19:59
BID VIRAL
Atorvastatin Calcium 40 mg 12/31/23 18:00 12/31/23 18:29
Atorvastatin (Lipitor) 40 Mg Tablet PO 01/28/24 17:59 40 mg
QPM VIRAL Administration
Bumetanide 2 mg 01/01/24 08:00 01/01/24 09:26
Bumetanide 2 Mg Tablet PO 01/29/24 07:59 2 mg
DAILY VIRAL Administration
Carboxymethylcellulose Sodium 1 drops 12/31/23 18:00 01/01/24 14:30
Carboxymethylcellulose Ophth Gel (Celluvisc) Droperette RIGHT EYE 01/28/24 17:59 1 drops
Q4H VIRAL Administration
Cyanocobalamin 1,000 mcg 01/01/24 08:00 01/01/24 09:09
Cyanocobalamin 1,000 Mcg Tablet PO 01/29/24 07:59 1,000 mcg
DAILY VIRAL Administration
Docusate Sodium 100 mg 01/01/24 08:00 01/01/24 09:08
Docusate Sodium 100 Mg Capsule PO 01/29/24 07:59 100 mg
DAILY VIRAL Administration
Ezetimibe 10 mg 12/31/23 22:00 12/31/23 21:38
Ezetimibe (Zetia) 10 Mg Tablet PO 01/28/24 21:59 10 mg
HS VIRAL Administration
Loratadine 10 mg 01/01/24 08:00 01/01/24 09:08
Loratadine 10 Mg Tablet PO 01/29/24 07:59 10 mg
DAILY VIRAL Administration
Pantoprazole Sodium 40 mg 12/31/23 16:59 01/01/24 09:08
Pantoprazole 40 Mg Delayed Release Tablet PO 01/28/24 16:58 40 mg
DAILY VIRAL Administration
Polyethylene Glycol 17 grams 12/31/23 16:59 01/01/24 09:08
Polyethylene Glycol Powder 17 Grams Packet PO 01/28/24 16:58 17 grams
DAILY VIRAL Administration
Potassium Chloride 10 meq 12/31/23 16:59 01/01/24 09:08
Potassium Chloride 10 Meq Extended Release Tablet PO 01/28/24 16:58 10 meq
DAILY VIRAL Administration
Fluticasone/Salmeterol 2 puff 12/31/23 20:00 01/01/24 08:42
Advair Hfa 45/21 Inhaler INH 01/28/24 19:59 2 puff
R BID VIRAL Administration
Protocol
Sodium Chloride 0 flush 12/31/23 18:00
Sodium Chloride 0.9% (Flush) Syringe IV 01/28/24 17:59
PER PROTOCOL VIRAL
Ticagrelor 90 mg 01/01/24 14:30 01/01/24 14:30
Ticagrelor (Brilinta) 90 Mg Tablet PO 01/29/24 14:29 90 mg
BID VIRAL Administration
Review of Systems
-
A limited ROS was performed w/ pertinent findings as per HPI.
Physical Exam
-
General: No Apparent Distress
HEENT: Negative Jaundice
Cardiology: Normal Sinus Rhythm
Pulmonary: Clear
Neurology: Other (right facial weakness, dysarthria)
Labs
Lab Results
WBC 2.7 10^3/uL (4.8-10.8) L 01/01/24 06:16
RBC 2.90 10^6/uL (4.20-5.40) L 01/01/24 06:16
Hgb 9.7 g/dL (12.0-16.0) L 01/01/24 12:14
Hct 28.2 % (37.0-47.0) L 01/01/24 06:16
MCV 97.2 fL (81.0-99.0) 01/01/24 06:16
MCH 30.3 pg (27.0-31.0) 01/01/24 06:16
MCHC 31.2 g/dL (33.0-37.0) L 01/01/24 06:16
RDW 16.1 % (11.5-14.5) H 01/01/24 06:16
Plt Count 137 10^3/uL (130-400) 01/01/24 06:16
MPV 10.0 fL (7.4-10.4) 01/01/24 06:16
Creatinine 0.7 mg/dL (0.6-1.0) 01/01/24 06:16
Vital Signs
Vital Signs
Temp Pulse Resp BP Pulse Ox
97.5 F 84 16 113/47 98
01/01/24 11:55 01/01/24 11:55 01/01/24 11:55 01/01/24 11:55 01/01/24 11:55
--- NOTE | 2024-01-01 16:02 | CM ---
confectionery laboratory manager reviewed patient's chart and patient was admitted from [facility], prior to that patient was at [facility] acute [facility], patient with possible new stroke and plan is to transfer to [place], family at bedside including POA. Sintia has been
w/c level at [facility].
Plan; Transfer to [place]. Nursing and foreign exchange clerk aware, no Auth required.
[2024-01-01 16:33] LABS: APTT 34.5 Sec (23.4-35.0); INR 1.49; PT 18.2 Sec (11.4-14.6)
[2024-01-01 16:41] LABS: Iron 43 ug/dl (37-170); LDH 331 U/L (120-246)
[2024-01-01 16:50] LABS: Percent Saturation 14 % (20-50); Total Iron Binding Capacity 304 ug/dl (265-497)
--- NOTE | 2024-01-01 17:55 | PTCARENOTE ---
Patient now with expressive aphasia, some dysarthria. Just came back from CT Head and Neck with Angio. Notified MD and Neurology.
[2024-01-01] MEDS: LIPITOR 40 MG PO (17:57)
[2024-01-01] MEDS: ELIQUIS 5 MG PO (18:07)
--- NOTE | 2024-01-01 19:45 | PTCARENOTE ---
Report given to YOLANDA Salazar RN, Anuja.
--- NOTE | 2024-01-02 07:33 | W.DCSUMMARY ---
Discharge Summary
Discharge Data
Date of Admission: 12/31/23
Date of Discharge: 01/01/24
-
Pending Results: No
Hospital Course
Discharging Physician : Dr. Nikky Woodward
Disposition : [facility]
Primary care physician : Dr. Foster Del Cid
Principal Discharge diagnosis : Cryptogenic bilateral CVA
Hospital Course :
Ms. 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
11/27-11/30 with recurrent stroke and transitioned to Eliquis, presents to the ER with worsening dysarthria. Triage vitals stable; labs with leukopenia 3.3 (baseline), Hg 9.7 (baseline), elevated T. Bili. Head CT with new bilateral CVA. Eliquis
held and she was started on aspirin/plavix and admitted to medicine with Neurology consulting. Brain MRI repeated with confirmation of new small acute infarcts right frontal lobe and anterolateral margin of the left cerebellum. CT
chest/abdomen/pelvis without finding highly suspicious for metastatic disease, marked splenomegaly, and eccentric enhancement along medial aspect of left renal pelvis - more likely related to vasculature recommended possible retrograde
pyelogram/ureteroscopy.
On afternoon HD 1 patient with worsening left arm weakness and dysarthria. Given risks/benefits of holding Eliquis - decision made to resume once head CT confirmed no hemorraghic conversion.
Hematology was consulted and recommended transfuer to [facility] for a more expedited work-up for PNH and possible bone marrow biopsy given leukopenia. [place] was called and accepted patient, she was flown down by helicopter.
Time spent on discharge was 40 minutes.
Important imaging findings :
HEAD CT 12/31/23
IMPRESSION:
1. Suspected moderate-sized acute transcortical ischemic infarct in the posterior left occipital lobe with loss of the normal louis-white matter differentiation (left posterior circulation infarct).
2. New 6.6 mm focal region of low-attenuation in the subcortical white matter of the posterior right frontal lobe suspicious for an acute ischemic white matter infarct.
3. MULTIPLE SUBACUTE POSTERIOR CIRCULATION INFARCTS in the right side of the cindy, right middle cerebellar peduncle, and both cerebellar hemispheres with an interval increase in cytotoxic edema in the right middle cerebellar peduncle.
4. Mild diffuse cerebral and cerebellar volume loss.
5. No CT evidence for acute intracranial hemorrhage.
Brain MRI 12/31/23
IMPRESSION:
Interval development of a small acute infarcts in the right frontal lobe, and anterolateral margin of the left cerebellum.
Acute evidence of acute small cortical infarct in the paramidline right occipital lobe.
No acute large vascular territory transcortical infarct.
Otherwise, evolving subacute and/or chronic infarcts are demonstrated, as described.
No mass effect.
Small posterior falcine meningioma. No other abnormal intracranial enhancement
CT CHEST/ABDOMEN/PELVIS 01/01/24
IMPRESSION:
1. No findings highly suspicious for metastatic disease.
2. Mild irregularity of the hepatic capsular contour, early change of cirrhosis is a differential consideration. No abnormal focal hepatic lesion identified.
3. Marked splenomegaly, indeterminate etiology.
4. Eccentric enhancement along the medial aspect of the left renal pelvis as above. This appears more likely to be related to atypical vasculature than neoplasm. If there are referrable symptoms such as hematuria, could be further evaluated with
retrograde pyelogram/ureteroscopy.
HEAD/NECK CTA 01/01/24
IMPRESSION: No acute pathology of the head and neck identified. No evidence of M1 and M2 occlusion. No focal stenosis
Stable left thyroid nodule. Nonurgent dedicated thyroid ultrasound recommended if not previously performed.
Tiny meningioma of the posterior right falx. Stable
Procedure findings :
Discharge Plan
-
Patient Disposition: Acute Care Hospital
Discharge Orders:
Discharge Patient (As Directed); Ordered 01/01/24
Ordered By: Nikky Woodward
Discharge Date and Time
Discharge Date/Time: 01/01/24 20:03
Print Language: INDONESIAN
== END 2024-01-01 20:03 | disposition short-term general hospital (02) | DRG 65 ==
LOC: 4 WEST ACU 14:05
PROVIDERS: Nurse Practitioner Adult Health; ADMITTING PHYSICIAN Student in an Organized Health Care Education/Training Program; CONSULT PHYSICIAN Internal Medicine Hematology & Oncology; CONSULT PHYSICIAN Psychiatry & Neurology Neurology; EMERGENCY PHYSICIAN Emergency Medicine; FAMILY PHYSICIAN Internal Medicine
DX: I63.40 Cerebral infarction due to embolism of unspecified cerebral artery (principal); I50.30 Unspecified diastolic (congestive) heart failure; I11.0 Hypertensive heart disease with heart failure; J45.909 Unspecified asthma, uncomplicated; Z86.73 Personal history of transient ischemic attack (TIA), and cerebral infarction without residual deficits; Z85.43 Personal history of malignant neoplasm of ovary
CPT/HCPCS: 36415; 70450; 70496; 70498; 70553; 71260; 74177; 80048; 80053; 82728; 82962; 83036; 83540; 83550; 83615; 83735; 84484; 85018; 85025; 85027; 85045; 85576; 85610; 85652; 85730; 86140; 86880; 92523; 92610; 93005; 94640; 97163; 97167; 99291; A9575; Q9967